=== PATIENT | male | born 1970 ===

== ENCOUNTER 2018-03-17 13:53 | Inpatient (IN) | payer MEDICARE, OTHER ==
[2018-03-17 14:35] VITALS: BMI 22.3
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
[2018-03-17 15:43] LABS: VENOUS BLOOD GAS BASE EXCESS 1.7 mmol/L (0.0-2.0); VENOUS BLOOD GAS PO2 59 mm/Hg (30-55); VENOUS BLOOD PH 7.37 (7.32-7.43)
[2018-03-17 15:57] LABS: BASO # 0.02 K/mm3 (0.0-2.0); BASO % 0.4 % (0.0-3.0); EOS # 0.2 (0.0-0.7); EOS % 3.2 % (1.5-5.0); GRAN # 3.15 (1.4-6.5); GRAN % 60.1 % (50.0-68.0); HEMOGLOBIN 12.4 g/dL (14.0-18.0); LYMPH # 1.6 (1.2-3.4); LYMPH % 31.3 % (22.0-35.0); MEAN CELL VOLUME 86.6 fl (80.0-105.0); MEAN CORPUSCULAR HEMOGLOBIN 30.7 pg (25.0-35.0); MEAN CORPUSCULAR HGB CONC 35.4 g/dl (31.0-37.0); MEAN PLATELET VOLUME 9.7 fl (7.0-11.0); MONO # 0.3 (0.1-0.6); RBC 4.04 10^6/uL (3.5-6.1); RED CELL DISTRIBUTION WIDTH 12.3 % (11.5-14.5); WHITE BLOOD COUNT 5.2 10^3/ul (4.5-11.0)
[2018-03-17 15:59] LABS: ALB/GLOB RATIO 1.2 (1.1-1.8); ALBUMIN 4.3 g/dL (3.0-4.8); ALT/SGPT 41 U/L (7-56); AST/SGOT 20 U/L (17-59); BLOOD UREA NITROGEN 19 mg/dL (7-21); CALCIUM 9.2 mg/dL (8.4-10.5); GFR AFRICAN-AMERICAN > 60; GFR NON-AFRICAN AMERICAN > 60
[2018-03-17 16:00] LABS: PH,URINE 6.5 (4.7-8.0); URINE BILIRUBIN NEGATIVE (NEGATIVE); URINE BLOOD NEGATIVE (NEGATIVE); URINE GLUCOSE (UA) >=1000 mg/dL (NEGATIVE); URINE LEUKOCYTE ESTERASE NEGATIVE Leu/uL (NEGATIVE); URINE PROTEIN NEGATIVE mg/dL (<30 mg/dL); URINE UROBILINOGEN 0.2 E.U./dL (<1 E.U./dL)
[2018-03-17 16:01] LABS: INR 1.14; PARTIAL THROMBOPLASTIN TIME 33.6 Seconds (25.1-36.5)
[2018-03-17 16:02] LABS: URINE APPEARANCE CLEAR (CLEAR); URINE COLOR YELLOW (YELLOW)
[2018-03-17] MEDS ORDERED: Cefepime IV 2 gm in NS 2 GM/100 ML BAG IVPB STA (16:15)
[2018-03-17] MEDS ORDERED: Vancomycin 1gm in NS 250ml 1 GM/250 ML BAG IVPB STA (16:16)
--- NOTE | 2018-03-17 17:22 | RAD ---
Date of service: 03/17/2018 PROCEDURE: Left Foot Radiographs. HISTORY: foot osteomyelitis COMPARISON: None. FINDINGS: BONES: Neuropathic ankle. A normal talotibial and talofibular do joint is not apparent. JOINTS: Charcot joint/left ankle changes. A component of osteomyelitis is difficult to identify. Likely findings related to prior episodes of osteomyelitis. SOFT TISSUES: NormalSoft tissue changes about the left ankle and hindfoot. OTHER FINDINGS: None. IMPRESSION: Soft tissue swelling without acute articular or osseous abnormality.
[2018-03-17] MEDS ORDERED: Dextrose 50% SYRINGE Inj (50 ml) IV PRN (17:51)
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
[2018-03-17] MEDS: Vancomycin 1gm in NS 250ml 1 GM/250 ML BAG IVPB SCH (18:19)
--- NOTE | 2018-03-17 22:27 | CARD ---
APPROVED REPORT Date of service: 03/17/2018 EKG Measurement Heart [id number] <Conclusion> Normal sinus rhythm Normal ECG
[2018-03-17] MEDS: Insulin Lispro (HUMAlog) HIGH Coverage SC SCH (22:54)
[2018-03-17] MEDS: Cefepime 1gm in NS 100ml 1 GM/100 ML BAG IVPB SCH (23:54)
[2018-03-18] MEDS ORDERED: Pneumococcal 23-Valent Vaccine IM ONE (00:44)
[2018-03-18] MEDS: Vancomycin 1gm in NS 250ml 1 GM/250 ML BAG IVPB SCH ×2 (05:44→17:03)
[2018-03-18 07:00] LABS: BASO # 0.03 K/mm3 (0.0-2.0); BASO % 0.7 % (0.0-3.0); EOS # 0.2 (0.0-0.7); EOS % 3.7 % (1.5-5.0); GRAN # 2.51 (1.4-6.5); HEMOGLOBIN 11.8 g/dL (14.0-18.0); LYMPH # 1.4 (1.2-3.4); LYMPH % 31.6 % (22.0-35.0); MEAN CELL VOLUME 86.2 fl (80.0-105.0); MEAN CORPUSCULAR HEMOGLOBIN 30.2 pg (25.0-35.0); MEAN PLATELET VOLUME 10.2 fl (7.0-11.0); MONO # 0.4 (0.1-0.6); RBC 3.91 10^6/uL (3.5-6.1); RED CELL DISTRIBUTION WIDTH 12.5 % (11.5-14.5); WHITE BLOOD COUNT 4.6 10^3/ul (4.5-11.0)
[2018-03-18 08:01] LABS: ALB/GLOB RATIO 1.1 (1.1-1.8); ALBUMIN 3.9 g/dL (3.0-4.8); BLOOD UREA NITROGEN 19 mg/dL (7-21); CALCIUM 8.9 mg/dL (8.4-10.5); GFR AFRICAN-AMERICAN > 60; GFR NON-AFRICAN AMERICAN > 60
[2018-03-18 08:02] LABS: ALT/SGPT 29 U/L (7-56); AST/SGOT 22 U/L (17-59)
[2018-03-18] MEDS: Insulin Lispro (HUMAlog) HIGH Coverage SC SCH ×4 (08:14→22:14)
[2018-03-18] MEDS: Enoxaparin 40 mg Syringe SC SCH (10:24)
[2018-03-18] MEDS: Cefepime 1gm in NS 100ml 1 GM/100 ML BAG IVPB SCH ×2 (10:24→22:14)
--- NOTE | 2018-03-18 13:10 | US ---
HISTORY: Leg pain and swelling. Evaluate for DVT PHYSICIAN(S): Hamilton Wills MD. TECHNIQUE: Duplex sonography and color-flow Doppler with graded compression were used to evaluate the deep venous systems of both lower extremities. FINDINGS: The visualized deep venous systems of both lower extremities are sonographically normal and compressible. Normal wave forms and augmentation are seen. There is no sonographic evidence for deep venous thrombosis in the visualized segments of both lower extremities. IMPRESSION: No sonographic evidence for deep venous thrombosis in the visualized segments of both lower extremities.
--- NOTE | 2018-03-18 13:32 | CP.PCM.PN ---
<Cristina Hubbard - Last Filed: 03/18/18 15:41> Subjective - Date & Time of Evaluation Date of Evaluation: 03/18/18 Time of Evaluation: 13:29 - Subjective Subjective: Cristina Hubbard, PGY-1, Internal Medicine note for Dr. Palmer Patient seen and examined this morning. No significant overnight events occurred. Patient reports minor dizziness, severe left foot pain and warmth, left foot wound discharge and malodor, and shortness of breath. Patient denies left foot wound redness.Patient denies headache, fever, chest pain, heart palpitations, wheezing, cough, abdominal pain, nausea, vomiting, constipation, diarrhea, dysuria, and hematuria. Objective - Vital Signs/Intake and Output Vital Signs (last 24 hours): Temp Pulse Resp BP Pulse Ox 97.7 F 77 20 103/69 98 03/18/18 06:00 03/18/18 06:00 03/18/18 06:00 03/18/18 06:00 03/18/18 06:00 Intake and Output: 03/18/18 03/18/18 06:59 18:59 Intake Total 1240 Output Total 600 Balance 640 - Medications Medications: Current Medications Dextrose (Dextrose 50% Inj) 0 ml IV STAT PRN; Protocol PRN Reason: Hypoglycemia Protocol Enoxaparin Sodium (Lovenox) 40 mg SC DAILY [facility] PRN Reason: Protocol Last Admin: 03/18/18 10:24 Dose: 40 mg Famotidine (Pepcid) 20 mg PO 1000,2200 [facility] Last Admin: 03/18/18 10:24 Dose: 20 mg Dextrose (Dextrose 5% In Water 1000 Ml) 1,000 mls @ 0 mls/hr IV .Q0M PRN; Protocol; Per Protocol PRN Reason: Hypoglycemia Protocol Cefepime HCl (Maxipime 1gm) 1 gm in 100 mls @ 100 mls/hr IVPB Q12 [facility] PRN Reason: Protocol Last Admin: 03/18/18 10:24 Dose: 100 mls/hr Vancomycin HCl (Vancomycin 1gm) 1 gm in 250 mls @ 167 mls/hr IVPB Q12H [facility] PRN Reason: Protocol Last Admin: 03/18/18 05:44 Dose: 167 mls/hr Insulin Human Lispro (Humalog High) 0 units SC ACHS [facility] PRN Reason: Protocol Last Admin: 03/18/18 11:47 Dose: 10 u - Labs Labs: 03/18/18 06:20 03/18/18 06:20 PT 13.0 SECONDS (9.4-12.5) H 03/17/18 15:25 INR 1.14 03/17/18 15:25 APTT 33.6 Seconds (25.1-36.5) 03/17/18 15:25 - Constitutional Appears: Well, Toxic - Head Exam Head Exam: ATRAUMATIC, NORMOCEPHALIC - Eye Exam Eye Exam: EOMI Pupil Exam: PERRL - ENT Exam ENT Exam: Mucous Membranes Moist - Respiratory Exam Respiratory Exam: Clear to Ausculation Bilateral, NORMAL BREATHING PATTERN - Cardiovascular Exam Cardiovascular Exam: REGULAR RHYTHM - GI/Abdominal Exam GI & Abdominal Exam: Soft, Normal Bowel Sounds - Extremities Exam Extremities Exam: Pedal Edema Additional comments: Left foot wound on outer aspect of foot. Edema of entire left foot. Wound is not erythematous but is malodorous, warm, and has discharge. - Neurological Exam Neurological Exam: Alert, CN II-XII Intact, Normal Gait, Oriented x3 Neuro motor strength exam: Left Lower Extremity: 5, Right Lower Extremity: 5 Additional comments: Patient cannot dorsiflex or plantarflex bilateral pedal phalanges - Psychiatric Exam Psychiatric exam: Normal Affect, Normal Mood Assessment and Plan - Assessment and Plan (Free Text) Assessment: 48 year old male with past medical history of diabetes mellitus I on insulin pump at home, osteomyelitis, talus avascular necrosis, and hypotension presents with left lower leg wound. Plan: Chronic ulcer of left foot 2/2 to trauma vs. history of diabetes -Chronic ulcer of left foot. Rule out osteomyelitis -Patient has history of osteomyelitis. -ESR (03/17): 46 -VBG lactate (03/17): 1.1 -Foot X ray (03/17): charcot joint/left ankle changes. Soft tissue swelling without acute articular or osseous abnormality. -EKG (03/17): NSR with HR: 83 bpm -Awaiting results of CRP, procalcitonin, blood culture, urine culture, HIV, RPR. -Empiric vancomycin and cefepime. -Per podiatry resident, Dr. Christensen has consulted infectious disease, Dr. Gonzáles, for further workup and ordered MRI of the foot to rule out osteomyelitis. Normocytic Anemia -Hgb: 11.8. Ranges between 9.8 and 13 -Continue to monitor Diabetes Mellitus I -Patient's last self reported hemoglobin A1c from few months ago was around 8. -Hemoglobin A1c: 9.4 -Random glucose: 258 -Lispro sliding scale insulin started. -Patient on consistent carbohydrate diet. 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 -Patient was on coumadin in the past, but due to risk of bleeding ulcer, patient was placed on aspirin by Dr. Lopez. -Patient has swollen left foot. Patient is on disability and wears boot on left foot while walking. -Due to immobilization of foot and swollen left foot, duplex lower extremity ultrasound was ordered to rule out DVT. -Duplex ultrasound (03/18): shows no sonographic evidence for DVT in bilateral lower extremities. GI prophylaxis: pepcid 20 mg daily DVT prophylaxis: lovenox 40 mg daily <Nehemias Palmer - Last Filed: 03/19/18 08:06> Objective - Vital Signs/Intake and Output Vital Signs (last 24 hours): Temp Pulse Resp BP Pulse Ox 97.8 F 80 18 98/58 L 97 03/19/18 06:00 03/19/18 06:00 03/19/18 06:00 03/19/18 06:00 03/19/18 06:00 Intake and Output: 03/19/18 03/19/18 06:59 18:59 Intake Total 660 Output Total 1600 Balance -940 - Medications Medications: Current Medications Dextrose (Dextrose 50% Inj) 0 ml IV STAT PRN; Protocol PRN Reason: Hypoglycemia Protocol Enoxaparin Sodium (Lovenox) 40 mg SC DAILY [facility] PRN Reason: Protocol Last Admin: 03/18/18 10:24 Dose: 40 mg Famotidine (Pepcid) 20 mg PO 1000,2200 [facility] Last Admin: 03/18/18 22:14 Dose: 20 mg Dextrose (Dextrose 5% In Water 1000 Ml) 1,000 mls @ 0 mls/hr IV .Q0M PRN; Protocol; Per Protocol PRN Reason: Hypoglycemia Protocol Cefepime HCl (Maxipime 1gm) 1 gm in 100 mls @ 100 mls/hr IVPB Q12 [facility] PRN Reason: Protocol Last Admin: 03/18/18 22:14 Dose: 100 mls/hr Vancomycin HCl (Vancomycin 1gm) 1 gm in 250 mls @ 167 mls/hr IVPB Q12H [facility] PRN Reason: Protocol Last Admin: 03/19/18 05:34 Dose: 167 mls/hr Insulin Human Lispro (Humalog High) 0 units SC ACHS [facility] PRN Reason: Protocol Last Admin: 03/19/18 07:48 Dose: 10 units Midodrine (Proamatine) 5 mg PO TID [facility] Silver Sulfadiazine (Silvadene 1% 25 Gm) 0 gm TP DAILY [facility] - Labs Labs: 03/19/18 06:30 03/19/18 06:30 PT 13.0 SECONDS (9.4-12.5) H 03/17/18 15:25 INR 1.14 03/17/18 15:25 APTT 33.6 Seconds (25.1-36.5) 03/17/18 15:25 Attending/Attestation - Attestation I have personally seen and examined this patient.: Yes I have fully participated in the care of the patient.: Yes I have reviewed all pertinent clinical information, including history, physical exam and plan: Yes Notes (Text): 03/19/18 08:04 Attending note; Patient seen and examined with resident. Patient is a 48 year old male with past medical history of diabetes mellitus type 1, on insulin pump, osteomyelitis, talus avascular necrosis, and chronic hypotension presents with left lower leg wound. Patient reports that this wound has been chronic and been present for the past month. 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 Christensen for admission for nonhealing wound. Currently patient has left ankle deformity which is chronic. Ulceration on the fifth metatarsal area. No significant discharge noted. Mild erythema and redness. Podiatry evaluation appreciated. Local wound care done. X-ray showed charcot's joint and soft tissue swelling with no significant osteomyelitis. MRI ordered. on IV vancomycin and cefepime. ID evaluation requested. Diabetes; continue insulin. Diabetes with significant autonomic neuropathy. Continue midodrine for hypotension. Ultrasound of the lower extremities negative. History of DVT in the past. Continue Lovenox subcutaneous. The diagnosis and treatment option discussed with patient in detail. Upon discharge the patient will follow-up with PMD Dr. Lopez.
--- NOTE | 2018-03-18 14:11 | CP.PCM.CON ---
<Fritz Merlos - Last Filed: 03/18/18 14:06> History of Present Illness - History of Present Illness History of Present Illness: Podiatry Consult Note for Dr. Santiago 48M with PMHx diabetes mellitus I on insulin pump, osteomyelitis, talus avascular necrosis, and hypotension seen at bedside for ulceration at level of left foot fifth metatarsal base. Patient was sent to ED yesterday after [facility]. Patient states that the wound has been present for over a month now and he has not been consistent with follow up due to problems with his insurance. Patient is AAO x 3 and AND at time of visit. He states that he does have mild pain to the site of the ulcer and has noted some red/clear drainage from the wound of recent. He also admits to redness surrounding the wound but no malodor. He denies any further pedal complaints at this time. Denies any constitutional symptoms including N/V/F/C/CP /SOB/D/posterior calf pain when squeezed. PMD: Dr. Lopez Body Former: Dr. Gomez PMH: DM1 on insulin drip, hypotension, TIA, bells palsy, bilateral lower extremity DVT, right upper extremity DVT PSH: right shoulder rotator cuff injury in 2006, catherization 6 months ago with 0 stents placed. Follow up records with [facility]. Medications: Midodrine 5 mg BID, continuous insulin lump Social history: denies alcohol, tobacco, and substance use. on disability Allergies: NKDA Review of Systems - Review of Systems All systems: reviewed and no additional remarkable complaints except Review of Systems: as per HPI Past Patient History - Infectious Disease Hx of Infectious Diseases: None - Tetanus Immunizations Tetanus Immunization: Unknown - Past Medical History & Family History Past Medical History?: Yes - Past Social History Smoking Status: Never Smoked - CARDIAC Hx Cardiac Disorders: Yes Hx Circulatory Problems: Yes Hx Peripheral Vascular Disease: (DVT BILATERAL LE) - PULMONARY Hx Respiratory Disorders: No - NEUROLOGICAL Hx Neurological Disorder: Yes Hx Dizziness: Yes Hx Transient Ischemic Attacks (TIA): Yes - HEENT Hx HEENT Problems: No - RENAL Hx Chronic Kidney Disease: No - ENDOCRINE/METABOLIC Hx Endocrine Disorders: Yes Hx Diabetes Mellitus Type 1: Yes (poorly controlled with frequent syncopal episodes) - HEMATOLOGICAL/ONCOLOGICAL Hx Blood Disorders: Yes (DVT) Other/Comment: Left leg DVT - INTEGUMENTARY Hx Dermatological Problems: Yes (flores to bilateral heels) Other/Comment: blisters noted on left hand knuckles - MUSCULOSKELETAL/RHEUMATOLOGICAL Hx Musculoskeletal Disorders: Yes (RIGHT SHOULDER ROTATOR CUFF [id number]) Hx Falls: Yes Hx Fractures: Yes (LEFT ANKLE) Hx Unsteady Gait: Yes (CRUTCHES,SPECIAL SHOES) Other/Comment: ARTIFICIAL JAW-PHYSICAL ALERCATION,BROKEN NOSE,HAD SX. - GASTROINTESTINAL Hx Gastrointestinal Disorders: No - GENITOURINARY/GYNECOLOGICAL Hx Genitourinary Disorders: No - PSYCHIATRIC Hx Psychophysiologic Disorder: No Hx Substance Use: No - SURGICAL HISTORY Hx Surgeries: Yes Hx Orthopedic Surgery: Yes Other/Comment: rt shoulder rotator cuff and broken jaw surgeries - ANESTHESIA Hx Anesthesia: Yes Hx Anesthesia Reactions: (UNK) Hx Malignant Hyperthermia: (UNK) Meds Allergies/Adverse Reactions: Allergies Allergy/AdvReac Type Severity Reaction Status Date / Time No Known Allergies Allergy Verified 03/17/18 21:43 - Medications Medications: Current Medications Dextrose (Dextrose 50% Inj) 0 ml IV STAT PRN; Protocol PRN Reason: Hypoglycemia Protocol Enoxaparin Sodium (Lovenox) 40 mg SC DAILY [facility] PRN Reason: Protocol Last Admin: 03/18/18 10:24 Dose: 40 mg Famotidine (Pepcid) 20 mg PO 1000,2200 [facility] Last Admin: 03/18/18 10:24 Dose: 20 mg Dextrose (Dextrose 5% In Water 1000 Ml) 1,000 mls @ 0 mls/hr IV .Q0M PRN; Protocol; Per Protocol PRN Reason: Hypoglycemia Protocol Cefepime HCl (Maxipime 1gm) 1 gm in 100 mls @ 100 mls/hr IVPB Q12 [facility] PRN Reason: Protocol Last Admin: 03/18/18 10:24 Dose: 100 mls/hr Vancomycin HCl (Vancomycin 1gm) 1 gm in 250 mls @ 167 mls/hr IVPB Q12H [facility] PRN Reason: Protocol Last Admin: 03/18/18 05:44 Dose: 167 mls/hr Insulin Human Lispro (Humalog High) 0 units SC ACHS [facility] PRN Reason: Protocol Last Admin: 03/18/18 11:47 Dose: 10 u Silver Sulfadiazine (Silvadene 1% 25 Gm) 0 gm TP DAILY [facility] Physical Exam - Constitutional Appears: Well, Non-toxic, No Acute Distress - Extremities Exam Additional comments: LE focused exam Vasc: DP/PT pulses 1/4 b/l. Skin temperature warm to warm from proximal to distal. CFT < 3 seconds to all digits b/l. Mild edema noted to left lateral foot ulceration site Neuro: Epicritic and protective sensation grossly intact b/l Derm: Approximately 1 cm x 1 cm x 0.3 cm ulceration that probes directly to bone noted to lateral left foot at fifth metatarsal base with wound base a fibrogranular mix. Mild periwound erythema and minimal serosanguinous drainage noted to site. No malodor, no tracking/tunneling/undermining. No other clinical signs of infection noted. No other open wounds, lesions, maceration, xerosis, abnormal pigmentation or abnormal growths noted MSK: POP to ulceration site. Limited ROM at left ankle joint secondary to destructive changes at ankle joint. Medial and lateral widening at ankle joint appreciated. No other gross deformities appreciated. - Neurological Exam Neurological exam: Alert, Oriented x3 - Psychiatric Exam Psychiatric exam: Normal Affect, Normal Mood Results - Vital Signs Recent Vital Signs: Last Vital Signs Temp 97.7 F 03/18/18 06:00 Pulse 77 03/18/18 06:00 Resp 20 03/18/18 06:00 BP 103/69 03/18/18 06:00 Pulse Ox 98 03/18/18 06:00 - Labs Result Diagrams: 03/18/18 06:20 03/18/18 06:20 Labs: Laboratory Results - last 24 hr 03/17/18 03/18/18 03/18/18 22:48 01:56 06:20 WBC RBC Hgb Hct MCV MCH MCHC RDW Plt Count MPV Gran % Lymph % (Auto) [place] % (Auto) Eos % (Auto) Baso % (Auto) Gran # Lymph # (Auto) [place] # (Auto) Eos # (Auto) Baso # (Auto) Sodium 135 Potassium 4.6 Chloride 99 Carbon Dioxide 27 Anion Gap 14 BUN 19 Creatinine 0.7 L Est GFR ( Amer) > 60 Est GFR (Non-Af Amer) > 60 POC Glucose (mg/dL) 340 H 244 H Random Glucose 268 H Calcium 8.9 Total Bilirubin 0.5 AST 22 ALT 29 Alkaline Phosphatase 83 Total Protein 7.3 Albumin 3.9 Globulin 3.4 Albumin/Globulin Ratio 1.1 03/18/18 03/18/18 06:20 06:27 WBC 4.6 RBC 3.91 Hgb 11.8 L Hct 33.7 L MCV 86.2 MCH 30.2 MCHC 35.0 RDW 12.5 Plt Count 211 MPV 10.2 Gran % 55.0 Lymph % (Auto) 31.6 [place] % (Auto) 9.0 H Eos % (Auto) 3.7 Baso % (Auto) 0.7 Gran # 2.51 Lymph # (Auto) 1.4 [place] # (Auto) 0.4 Eos # (Auto) 0.2 Baso # (Auto) 0.03 Sodium Potassium Chloride Carbon Dioxide Anion Gap BUN Creatinine Est GFR ( Amer) Est GFR (Non-Af Amer) POC Glucose (mg/dL) 258 H Random Glucose Calcium Total Bilirubin AST ALT Alkaline Phosphatase Total Protein Albumin Globulin Albumin/Globulin Ratio Assessment & Plan - Assessment and Plan (Free Text) Assessment: 48M seen for acutely infected left foot fifth metatarsal base ulceration Plan: Patient seen and evaluated with attending, Dr. Santiago Afebrile, absent leukocytosis ID consult placed - Dr. Gonzáles Continue abx per ID recs ESR 46 F/u wound cx L foot XR: Soft tissue swelling without acute articular or osseous abnormality F/u MRI left foot LLE US - No evidence of DVT Wound cleansed with saline and dressed with xeroform, ABD, DSD No plan for surgical intervention at this time Podiatry will continue to follow while patient in house - Date & Time Date: 03/18/18 Time: 14:20 <Bassem Santiago - Last Filed: 03/18/18 16:49> Meds - Medications Medications: Current Medications Dextrose (Dextrose 50% Inj) 0 ml IV STAT PRN; Protocol PRN Reason: Hypoglycemia Protocol Enoxaparin Sodium (Lovenox) 40 mg SC DAILY [facility] PRN Reason: Protocol Last Admin: 03/18/18 10:24 Dose: 40 mg Famotidine (Pepcid) 20 mg PO 1000,2200 [facility] Last Admin: 03/18/18 10:24 Dose: 20 mg Dextrose (Dextrose 5% In Water 1000 Ml) 1,000 mls @ 0 mls/hr IV .Q0M PRN; Protocol; Per Protocol PRN Reason: Hypoglycemia Protocol Cefepime HCl (Maxipime 1gm) 1 gm in 100 mls @ 100 mls/hr IVPB Q12 [facility] PRN Reason: Protocol Last Admin: 03/18/18 10:24 Dose: 100 mls/hr Vancomycin HCl (Vancomycin 1gm) 1 gm in 250 mls @ 167 mls/hr IVPB Q12H [facility] PRN Reason: Protocol Last Admin: 03/18/18 05:44 Dose: 167 mls/hr Insulin Human Lispro (Humalog High) 0 units SC ACHS [facility] PRN Reason: Protocol Last Admin: 03/18/18 11:47 Dose: 10 u Silver Sulfadiazine (Silvadene 1% 25 Gm) 0 gm TP DAILY [facility] Results - Vital Signs Recent Vital Signs: Last Vital Signs Temp 98.5 F 03/18/18 14:00 Pulse 87 03/18/18 14:00 Resp 20 03/18/18 14:00 BP 108/73 03/18/18 14:00 Pulse Ox 97 03/18/18 14:00 - Labs Result Diagrams: 03/18/18 06:20 03/18/18 06:20 Labs: Laboratory Results - last 24 hr 03/17/18 03/18/18 03/18/18 22:48 01:56 06:20 WBC RBC Hgb Hct MCV MCH MCHC RDW Plt Count MPV Gran % Lymph % (Auto) [place] % (Auto) Eos % (Auto) Baso % (Auto) Gran # Lymph # (Auto) [place] # (Auto) Eos # (Auto) Baso # (Auto) Sodium 135 Potassium 4.6 Chloride 99 Carbon Dioxide 27 Anion Gap 14 BUN 19 Creatinine 0.7 L Est GFR ( Amer) > 60 Est GFR (Non-Af Amer) > 60 POC Glucose (mg/dL) 340 H 244 H Random Glucose 268 H Calcium 8.9 Total Bilirubin 0.5 AST 22 ALT 29 Alkaline Phosphatase 83 Total Protein 7.3 Albumin 3.9 Globulin 3.4 Albumin/Globulin Ratio 1.1 03/18/18 03/18/18 03/18/18 06:20 06:27 11:15 WBC 4.6 RBC 3.91 Hgb 11.8 L Hct 33.7 L MCV 86.2 MCH 30.2 MCHC 35.0 RDW 12.5 Plt Count 211 MPV 10.2 Gran % 55.0 Lymph % (Auto) 31.6 [place] % (Auto) 9.0 H Eos % (Auto) 3.7 Baso % (Auto) 0.7 Gran # 2.51 Lymph # (Auto) 1.4 [place] # (Auto) 0.4 Eos # (Auto) 0.2 Baso # (Auto) 0.03 Sodium Potassium Chloride Carbon Dioxide Anion Gap BUN Creatinine Est GFR ( Amer) Est GFR (Non-Af Amer) POC Glucose (mg/dL) 258 H 327 H Random Glucose Calcium Total Bilirubin AST ALT Alkaline Phosphatase Total Protein Albumin Globulin Albumin/Globulin Ratio 03/18/18 16:09 WBC RBC Hgb Hct MCV MCH MCHC RDW Plt Count MPV Gran % Lymph % (Auto) [place] % (Auto) Eos % (Auto) Baso % (Auto) Gran # Lymph # (Auto) [place] # (Auto) Eos # (Auto) Baso # (Auto) Sodium Potassium Chloride Carbon Dioxide Anion Gap BUN Creatinine Est GFR ( Amer) Est GFR (Non-Af Amer) POC Glucose (mg/dL) 152 H Random Glucose Calcium Total Bilirubin AST ALT Alkaline Phosphatase Total Protein Albumin Globulin Albumin/Globulin Ratio Attending/Attestation - Attestation I have personally seen and examined this patient.: Yes I have fully participated in the care of the patient.: Yes I have reviewed all pertinent clinical information: Yes
[2018-03-19] MEDS: Vancomycin 1gm in NS 250ml 1 GM/250 ML BAG IVPB SCH ×2 (05:34→17:12)
[2018-03-19 07:08] LABS: BASO # 0.02 K/mm3 (0.0-2.0); BASO % 0.4 % (0.0-3.0); EOS # 0.2 (0.0-0.7); EOS % 3.5 % (1.5-5.0); GRAN # 2.73 (1.4-6.5); GRAN % 55.4 % (50.0-68.0); HEMOGLOBIN 11.7 g/dL (14.0-18.0); LYMPH # 1.5 (1.2-3.4); LYMPH % 30.1 % (22.0-35.0); MEAN CELL VOLUME 86.3 fl (80.0-105.0); MEAN CORPUSCULAR HEMOGLOBIN 30.3 pg (25.0-35.0); MEAN CORPUSCULAR HGB CONC 35.1 g/dl (31.0-37.0); MEAN PLATELET VOLUME 10.2 fl (7.0-11.0); MONO # 0.5 (0.1-0.6); MONO % 10.6 % (1.0-6.0); RBC 3.86 10^6/uL (3.5-6.1); RED CELL DISTRIBUTION WIDTH 12.4 % (11.5-14.5); WHITE BLOOD COUNT 4.9 10^3/ul (4.5-11.0)
[2018-03-19 07:32] LABS: ALB/GLOB RATIO 1.1 (1.1-1.8); ALBUMIN 3.6 g/dL (3.0-4.8); ALT/SGPT 24 U/L (7-56); AST/SGOT 22 U/L (17-59); BLOOD UREA NITROGEN 15 mg/dL (7-21); CALCIUM 8.7 mg/dL (8.4-10.5); GFR AFRICAN-AMERICAN > 60; GFR NON-AFRICAN AMERICAN > 60
[2018-03-19] MEDS: Insulin Lispro (HUMAlog) HIGH Coverage SC SCH ×4 (07:48→21:56)
--- NOTE | 2018-03-19 09:31 | US ---
HISTORY: Arm pain and swelling. Evaluate for deep venous thrombosis. PHYSICIAN(S): Hamilton Wills MD. FINDINGS: The visualized internal jugular veins are sonographically normal and compressible. No evidence of obstruction or thrombus this is seen. The visualized segments of the subclavian veins are patent with normal waveforms. No sonographic evidence of obstruction or thrombosis is seen. The visualized deep venous systems of both upper extremities proximally are sonographically normal and compressible. IMPRESSION: 1. No sonographic evidence for deep venous thrombosis in the visualized segments of both upper strategies.
[2018-03-19] MEDS: Enoxaparin 40 mg Syringe SC SCH (10:25)
[2018-03-19] MEDS: Cefepime 1gm in NS 100ml 1 GM/100 ML BAG IVPB SCH ×2 (10:25→21:57)
[2018-03-19] MEDS: Silver Sulfadiazine 1% Cream (25 gm) TP SCH (10:26)
--- NOTE | 2018-03-19 11:24 | CP.PCM.PN ---
Subjective - Date & Time of Evaluation Date of Evaluation: 03/19/18 Time of Evaluation: 11:20 - Subjective Subjective: Podiatry Progress Note for Dr. Christensen 48M seen at bedside for lateral left foot wound. Patient is AAO x 3 and NAD, resting comfortably in bed at time of visit. States that he has pain in his foot at the wound site. Denies any acute overnight events. Denies any recent N/V /F/C/CP/SOB/D/posterior calf pain when squeezed. Objective - Vital Signs/Intake and Output Vital Signs (last 24 hours): Temp Pulse Resp BP Pulse Ox 97.8 F 80 18 98/58 L 97 03/19/18 06:00 03/19/18 06:00 03/19/18 06:00 03/19/18 06:00 03/19/18 06:00 Intake and Output: 03/19/18 03/19/18 06:59 18:59 Intake Total 660 Output Total 1600 Balance -940 - Medications Medications: Current Medications Dextrose (Dextrose 50% Inj) 0 ml IV STAT PRN; Protocol PRN Reason: Hypoglycemia Protocol Enoxaparin Sodium (Lovenox) 40 mg SC DAILY [facility] PRN Reason: Protocol Last Admin: 03/19/18 10:25 Dose: 40 mg Famotidine (Pepcid) 20 mg PO 1000,2200 [facility] Last Admin: 03/19/18 10:26 Dose: 20 mg Gabapentin (Neurontin) 200 mg PO TID [facility] PRN Reason: Protocol Dextrose (Dextrose 5% In Water 1000 Ml) 1,000 mls @ 0 mls/hr IV .Q0M PRN; Protocol; Per Protocol PRN Reason: Hypoglycemia Protocol Cefepime HCl (Maxipime 1gm) 1 gm in 100 mls @ 100 mls/hr IVPB Q12 [facility] PRN Reason: Protocol Last Admin: 03/19/18 10:25 Dose: 100 mls/hr Vancomycin HCl (Vancomycin 1gm) 1 gm in 250 mls @ 167 mls/hr IVPB Q12H [facility] PRN Reason: Protocol Last Admin: 03/19/18 05:34 Dose: 167 mls/hr Insulin Detemir (Levemir) 10 unit SC ACB [facility] Insulin Detemir (Levemir) 10 unit SC HS [facility] Insulin Human Lispro (Humalog High) 0 units SC ACHS [facility] PRN Reason: Protocol Last Admin: 03/19/18 07:48 Dose: 10 units Midodrine (Proamatine) 5 mg PO TID [facility] Last Admin: 03/19/18 10:26 Dose: 5 mg Silver Sulfadiazine (Silvadene 1% 25 Gm) 0 gm TP DAILY [facility] Last Admin: 03/19/18 10:26 Dose: 25 gm - Labs Labs: 03/19/18 06:30 03/19/18 06:30 PT 13.0 SECONDS (9.4-12.5) H 03/17/18 15:25 INR 1.14 03/17/18 15:25 APTT 33.6 Seconds (25.1-36.5) 03/17/18 15:25 - Constitutional Appears: Well, Non-toxic, No Acute Distress - Extremities Exam Additional comments: LE focused exam Vasc: DP/PT pulses 1/4 b/l. Skin temperature warm to warm from proximal to distal. CFT < 3 seconds to all digits b/l. Mild edema noted to left lateral foot ulceration site Neuro: Epicritic and protective sensation grossly intact b/l Derm: Approximately 1 cm x 1 cm x 0.3 cm ulceration that probes directly to bone noted to lateral left foot at fifth metatarsal base with wound base noted to be a fibrogranular mix with more granulation noted today than yesterday. No periwound erythema and no drainage noted to site today. No malodor, no tracking/ tunneling/undermining. No other clinical signs of infection noted. No other open wounds, lesions, maceration, xerosis, abnormal pigmentation or abnormal growths noted MSK: POP to ulceration site. Limited ROM at left ankle joint secondary to destructive changes at ankle joint. Medial and lateral widening at ankle joint appreciated. No other gross deformities appreciated. - Neurological Exam Neurological Exam: Alert, Awake, Oriented x3 - Psychiatric Exam Psychiatric exam: Normal Affect, Normal Mood Assessment and Plan - Assessment and Plan (Free Text) Assessment: 48M seen for acutely infected left foot fifth metatarsal base ulceration Plan: Patient seen and evaluated with Dr. Christensen Afebrile, absent leukocytosis Continue abx per ID Wound cx left foot pending Official MRI read left foot pending Official arterial duplex read pending No plan for surgical intervention at this time. Awaiting MRI/arterial study results Podiatry will continue to follow while patient in house
--- NOTE | 2018-03-19 12:33 | CP.PCM.PN ---
<Cristina Hubbard - Last Filed: 03/19/18 16:37> Subjective - Date & Time of Evaluation Date of Evaluation: 03/19/18 Time of Evaluation: 12:30 - Subjective Subjective: Cristina Hubbard, PGY-1, Internal Medicine note for Dr. Palmer Patient seen and examined. Overnight, patient's blood pressure dropped to 85/56 and subsequently raised to 98/59. Patient reported no symptoms during this episode. Patient reports left foot pain and swelling, minimal discharge and malodor from wound. Patient denies redness of wound. Patient denies headache, dizziness, chest pain, heart palpitations, shortness of breath, nausea, vomiting , constipation, diarrhea, dysuria, and hematuria. Objective - Vital Signs/Intake and Output Vital Signs (last 24 hours): Temp Pulse Resp BP Pulse Ox 97.8 F 80 18 98/58 L 97 03/19/18 06:00 03/19/18 06:00 03/19/18 06:00 03/19/18 06:00 03/19/18 06:00 Intake and Output: 03/19/18 03/19/18 06:59 18:59 Intake Total 660 Output Total 1600 Balance -940 - Medications Medications: Current Medications Dextrose (Dextrose 50% Inj) 0 ml IV STAT PRN; Protocol PRN Reason: Hypoglycemia Protocol Enoxaparin Sodium (Lovenox) 40 mg SC DAILY [facility] PRN Reason: Protocol Last Admin: 03/19/18 10:25 Dose: 40 mg Famotidine (Pepcid) 20 mg PO 1000,2200 [facility] Last Admin: 03/19/18 10:26 Dose: 20 mg Gabapentin (Neurontin) 200 mg PO TID [facility] PRN Reason: Protocol Dextrose (Dextrose 5% In Water 1000 Ml) 1,000 mls @ 0 mls/hr IV .Q0M PRN; Protocol; Per Protocol PRN Reason: Hypoglycemia Protocol Cefepime HCl (Maxipime 1gm) 1 gm in 100 mls @ 100 mls/hr IVPB Q12 [facility] PRN Reason: Protocol Last Admin: 03/19/18 10:25 Dose: 100 mls/hr Vancomycin HCl (Vancomycin 1gm) 1 gm in 250 mls @ 167 mls/hr IVPB Q12H [facility] PRN Reason: Protocol Last Admin: 03/19/18 05:34 Dose: 167 mls/hr Insulin Detemir (Levemir) 10 unit SC ACB [facility] Insulin Detemir (Levemir) 10 unit SC HS [facility] Insulin Human Lispro (Humalog High) 0 units SC ACHS [facility] PRN Reason: Protocol Last Admin: 03/19/18 12:14 Dose: 7 units Midodrine (Proamatine) 5 mg PO TID [facility] Last Admin: 03/19/18 10:26 Dose: 5 mg Silver Sulfadiazine (Silvadene 1% 25 Gm) 0 gm TP DAILY [facility] Last Admin: 03/19/18 10:26 Dose: 25 gm - Labs Labs: 03/19/18 06:30 03/19/18 06:30 PT 13.0 SECONDS (9.4-12.5) H 03/17/18 15:25 INR 1.14 03/17/18 15:25 APTT 33.6 Seconds (25.1-36.5) 03/17/18 15:25 - Constitutional Appears: Well, Non-toxic - Head Exam Head Exam: ATRAUMATIC, NORMOCEPHALIC - Eye Exam Eye Exam: EOMI, PERRL - Respiratory Exam Respiratory Exam: Clear to Ausculation Bilateral, NORMAL BREATHING PATTERN - Cardiovascular Exam Cardiovascular Exam: REGULAR RHYTHM, RRR - GI/Abdominal Exam GI & Abdominal Exam: Soft, Normal Bowel Sounds - Extremities Exam Extremities Exam: Full ROM, Pedal Edema Additional comments: Improved discharge, malodor, and warmth. No redness. - Neurological Exam Neurological Exam: Alert, Awake, CN II-XII Intact, Oriented x3 Neuro motor strength exam: Left Upper Extremity: 5, Right Upper Extremity: 5, Right Lower Extremity: 5 Additional comments: Left pedal dorsiflexion and plantarflexion limited. - Psychiatric Exam Psychiatric exam: Normal Affect, Normal Mood - Skin Skin Exam: Dry, Intact, Normal Color Assessment and Plan - Assessment and Plan (Free Text) Assessment: 48 year old male with past medical history of diabetes mellitus I on insulin pump at home, osteomyelitis, talus avascular necrosis, and hypotension presents with left lower leg wound. Plan: Chronic ulcer of left foot 2/2 to trauma vs. history of diabetes -Chronic ulcer of left foot. Rule out osteomyelitis -Patient has history of osteomyelitis. -ESR (8/6): 46, CRP (8/6): <5, Procalcitonin (03/17): <0.05 -VBG lactate (03/17): 1.1 -Foot X ray (03/17): charcot joint/left ankle changes. Soft tissue swelling without acute articular or osseous abnormality. -EKG (03/17): NSR with HR: 83 bpm -Blood culture no growth after 24 hours, no growth on urine culture, HIV nonreactive, RPR nonreactive. -Empiric vancomycin and cefepime. -Per podiatry resident, Dr. Christensen consulted infectious disease, Dr. Gonzáles , for further workup. 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 Minimal marrow edema in the proximal 5th metatarsal. Possible early osteomyelitis. -Wound culture results pending. Normocytic Anemia -Hgb: 11.8. Ranges between 9.8 and 13 -Continue to monitor Diabetes Mellitus I -Patient's last self reported hemoglobin A1c from few months ago was around 8. -Hemoglobin A1c: 9.4 -Random glucose: 328 at 6:30 -Lispro sliding scale insulin continued. -Levemir 10 U ACB and levemir 10 U HS started. -Gabapentin 200 mg TID started -Patient on consistent carbohydrate diet. History of Hypotension -Patient's blood pressure dropped to 85/56 last night. -Patient restarted on home midodrine dose. 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 -Patient was on coumadin in the past, but due to risk of bleeding ulcer, patient was placed on aspirin by Dr. Lopez. -Patient has swollen left foot. Patient is on disability and wears boot on left foot while walking. -Due to immobilization of foot and swollen left foot, duplex lower extremity ultrasound was ordered to rule out DVT. -Patient complained of left arm pain morning of 03/19. -Duplex ultrasound (03/18): shows no sonographic evidence for DVT in bilateral lower extremities. -Duplex ultrasound of bilateral upper extremities (03/19) : shows no DVT. GI prophylaxis: pepcid 20 mg daily DVT prophylaxis: lovenox 40 mg daily <Nehemias Palmer - Last Filed: 03/20/18 16:41> Objective - Vital Signs/Intake and Output Vital Signs (last 24 hours): Temp Pulse Resp BP Pulse Ox 97.8 F 78 18 90/63 L 98 03/20/18 06:00 03/20/18 06:00 03/20/18 06:00 03/20/18 06:00 03/20/18 06:00 Intake and Output: 03/20/18 03/20/18 06:59 18:59 Intake Total 800 480 Output Total 2150 900 Balance -1350 -420 - Medications Medications: Current Medications Dextrose (Dextrose 50% Inj) 0 ml IV STAT PRN; Protocol PRN Reason: Hypoglycemia Protocol Enoxaparin Sodium (Lovenox) 40 mg SC DAILY [facility] PRN Reason: Protocol Last Admin: 03/20/18 09:26 Dose: 40 mg Famotidine (Pepcid) 20 mg PO 1000,2200 [facility] Last Admin: 03/20/18 09:26 Dose: 20 mg Gabapentin (Neurontin) 200 mg PO TID [facility] PRN Reason: Protocol Last Admin: 03/20/18 14:00 Dose: Not Given Dextrose (Dextrose 5% In Water 1000 Ml) 1,000 mls @ 0 mls/hr IV .Q0M PRN; Protocol; Per Protocol PRN Reason: Hypoglycemia Protocol Cefazolin Sodium/Dextrose (Ancef Iv 2 Gm Duplex) 2 gm in 50 mls @ 50 mls/hr IVPB Q8 [facility] Stop: 04/17/18 22:01 Insulin Detemir (Levemir) 10 unit SC ACB [facility] Last Admin: 03/20/18 07:58 Dose: 10 unit Insulin Detemir (Levemir) 10 unit SC HS [facility] Last Admin: 03/19/18 21:57 Dose: 10 units Insulin Human Lispro (Humalog High) 0 units SC ACHS [facility] PRN Reason: Protocol Last Admin: 03/20/18 11:52 Dose: 2 units Midodrine (Proamatine) 5 mg PO TID [facility] Last Admin: 03/20/18 14:00 Dose: Not Given Silver Sulfadiazine (Silvadene 1% 25 Gm) 0 gm TP DAILY [facility] Last Admin: 03/19/18 10:26 Dose: 25 gm - Labs Labs: 03/20/18 06:45 03/20/18 06:45 PT 13.0 SECONDS (9.4-12.5) H 08/06/18 15:25 INR 1.14 03/17/18 15:25 APTT 33.6 Seconds (25.1-36.5) 03/17/18 15:25 Attending/Attestation - Attestation I have personally seen and examined this patient.: Yes I have fully participated in the care of the patient.: Yes I have reviewed all pertinent clinical information, including history, physical exam and plan: Yes Notes (Text): 03/20/18 16:37 Attending note; Patient seen and examined with resident. Patient is a 48 year old male with past medical history of diabetes mellitus type 1, on insulin pump, osteomyelitis, talus avascular necrosis, and chronic hypotension presents with left lower leg wound. Patient reports that this wound has been chronic and been present for the past month. The patient was referred from wedding [facility] Dr. Christensen for admission for nonhealing wound. Currently patient has left ankle deformity which is chronic. Ulceration on the fifth metatarsal area. No significant discharge noted. Mild erythema and redness. Podiatry evaluation appreciated. Local wound care done. X-ray showed charcot's joint and soft tissue swelling with no significant osteomyelitis. MRI showed minimal bone marrow edema suggesting early osteomyelitis. Wound culture pending. on IV vancomycin and cefepime. ID evaluation appreciated. Upper extremity Doppler is negative for DVT. Arterial Doppler ordered. Diabetes; continue Levemir. Diabetes with significant autonomic neuropathy. Continue midodrine for hypotension. Ultrasound of the lower extremities negative. The diagnosis and treatment option discussed with patient in detail. Upon discharge the patient will follow-up with PMD Dr. Lopez.
--- NOTE | 2018-03-19 12:58 | MRI ---
Date of service: 03/19/2018 PROCEDURE: MRI of the left foot without contrast HISTORY: R/o OM of left foot fifth met base COMPARISON: TECHNIQUE: MRI of the left ankle was performed in multiple planes using multiple pulse sequences. FINDINGS: Severe Charcot changes are seen in the ankle and midfoot. There is complete collapse of the talus and the superior portion of the calcaneus. There is a large amount of soft tissue edema and scarring. The cuboid, cuneiform and metatarsals are unremarkable. There is mild diffuse marrow edema in the calcaneus. Small osteochondral defects are seen in the articular surface of the tibia. The clinical history is possible osteomyelitis base of 5th metatarsal. There is minimal marrow edema seen in this area. Findings could represent early osteomyelitis. There is no bony destruction. Findings are best seen on image 22 series 3 IMPRESSION: Charcot ankle with collapse of the talus. Minimal marrow edema in the proximal 5th metatarsal. Possible early osteomyelitis
--- NOTE | 2018-03-19 15:04 | US ---
PROCEDURE: Lower extremity BARRIE exam HISTORY: Peripheral vascular disease with pain and ulceration. Diabetes. PHYSICIAN(S): Hamilton Wills MD. FINDINGS: The resting BARRIE's are normal: right, 1.22and left, 1.11. Comparing with the right distal waveforms, the right ABIs may be inaccurate The brachial systolic pressures are symmetric. The high thigh pressures and waveforms are relatively normal. The calf PVR waveforms augment normally. No significant gradients are noted across the thighs. The right ankle and metatarsal waveforms are moderately blunted. This could represent right tibial occlusive disease. The left ankle PVR waveform is normal. IMPRESSION: 1. Normal ABIs at rest. The right BARRIE may be inaccurate. 2. Possible right tibial occlusive disease.
--- NOTE | 2018-03-19 19:34 | CP.PCM.CON ---
History of Present Illness - History of Present Illness History of Present Illness: 48 year old male with PMH of Enterococcus faecalis persistent bacteremia, DM, Charcot arthropathy of the feet, Peptic ulcer disease, Diabetic gastroparesis was brought in to [facility] because of wound on his left foot which has been worsening slowly over the past month. He denies animal contacts or soaking his feet in water. He has no fevers or chills, no nausea or vomiting, no chest pain , no SOB, no headache or dizziness, no abdominal pain, no diarrhea. Infectious Diseases consult is requested to further evaluate and manage. Review of Systems - Review of Systems All systems: reviewed and no additional remarkable complaints except (as per HPI ) Past Patient History - Infectious Disease Hx of Infectious Diseases: None - Tetanus Immunizations Tetanus Immunization: Unknown - Past Medical History & Family History Past Medical History?: Yes - Past Social History Smoking Status: Never Smoked - CARDIAC Hx Cardiac Disorders: Yes Hx Circulatory Problems: Yes Hx Peripheral Vascular Disease: (DVT BILATERAL LE) - PULMONARY Hx Respiratory Disorders: No - NEUROLOGICAL Hx Neurological Disorder: Yes Hx Dizziness: Yes Hx Transient Ischemic Attacks (TIA): Yes - HEENT Hx HEENT Problems: No - RENAL Hx Chronic Kidney Disease: No - ENDOCRINE/METABOLIC Hx Endocrine Disorders: Yes Hx Diabetes Mellitus Type 1: Yes (poorly controlled with frequent syncopal episodes) - HEMATOLOGICAL/ONCOLOGICAL Hx Blood Disorders: Yes (DVT) Other/Comment: Left leg DVT - INTEGUMENTARY Hx Dermatological Problems: Yes (flores to bilateral heels) Other/Comment: blisters noted on left hand knuckles - MUSCULOSKELETAL/RHEUMATOLOGICAL Hx Musculoskeletal Disorders: Yes (RIGHT SHOULDER ROTATOR CUFF [id number]) Hx Falls: Yes Hx Fractures: Yes (LEFT ANKLE) Hx Unsteady Gait: Yes (CRUTCHES,SPECIAL SHOES) Other/Comment: ARTIFICIAL JAW-PHYSICAL ALERCATION,BROKEN NOSE,HAD SX. - GASTROINTESTINAL Hx Gastrointestinal Disorders: No - GENITOURINARY/GYNECOLOGICAL Hx Genitourinary Disorders: No - PSYCHIATRIC Hx Psychophysiologic Disorder: No Hx Substance Use: No - SURGICAL HISTORY Hx Surgeries: Yes Hx Orthopedic Surgery: Yes Other/Comment: rt shoulder rotator cuff and broken jaw surgeries - ANESTHESIA Hx Anesthesia: Yes Hx Anesthesia Reactions: (UNK) Hx Malignant Hyperthermia: (UNK) Meds Allergies/Adverse Reactions: Allergies Allergy/AdvReac Type Severity Reaction Status Date / Time No Known Allergies Allergy Verified 08/06/18 21:43 - Medications Medications: Current Medications Dextrose (Dextrose 50% Inj) 0 ml IV STAT PRN; Protocol PRN Reason: Hypoglycemia Protocol Enoxaparin Sodium (Lovenox) 40 mg SC DAILY [facility] PRN Reason: Protocol Last Admin: 03/18/18 10:24 Dose: 40 mg Famotidine (Pepcid) 20 mg PO 1000,2200 [facility] Last Admin: 03/18/18 10:24 Dose: 20 mg Dextrose (Dextrose 5% In Water 1000 Ml) 1,000 mls @ 0 mls/hr IV .Q0M PRN; Protocol; Per Protocol PRN Reason: Hypoglycemia Protocol Cefepime HCl (Maxipime 1gm) 1 gm in 100 mls @ 100 mls/hr IVPB Q12 [facility] PRN Reason: Protocol Last Admin: 03/18/18 10:24 Dose: 100 mls/hr Vancomycin HCl (Vancomycin 1gm) 1 gm in 250 mls @ 167 mls/hr IVPB Q12H [facility] PRN Reason: Protocol Last Admin: 03/18/18 17:03 Dose: 167 mls/hr Insulin Human Lispro (Humalog High) 0 units SC ACHS [facility] PRN Reason: Protocol Last Admin: 03/18/18 17:01 Dose: 2 u Silver Sulfadiazine (Silvadene 1% 25 Gm) 0 gm TP DAILY [facility] Physical Exam - Constitutional Appears: Chronically Ill - Head Exam Head Exam: NORMAL INSPECTION - Respiratory Exam Respiratory Exam: Decreased Breath Sounds - Cardiovascular Exam Cardiovascular Exam: +S1, +S2 - GI/Abdominal Exam GI & Abdominal Exam: Soft. absent: Tenderness - Extremities Exam Additional comments: left foot with dressings in place Results - Vital Signs Recent Vital Signs: Last Vital Signs Temp 98.5 F 03/18/18 14:00 Pulse 87 03/18/18 14:00 Resp 20 03/18/18 14:00 BP 108/73 03/18/18 14:00 Pulse Ox 97 03/18/18 14:00 - Labs Result Diagrams: 03/19/18 06:30 03/19/18 06:30 Labs: Laboratory Results - last 24 hr 03/17/18 03/18/18 03/18/18 22:48 01:56 06:20 WBC RBC Hgb Hct MCV MCH MCHC RDW Plt Count MPV Gran % Lymph % (Auto) [place] % (Auto) Eos % (Auto) Baso % (Auto) Gran # Lymph # (Auto) [place] # (Auto) Eos # (Auto) Baso # (Auto) Sodium 135 Potassium 4.6 Chloride 99 Carbon Dioxide 27 Anion Gap 14 BUN 19 Creatinine 0.7 L Est GFR ( Amer) > 60 Est GFR (Non-Af Amer) > 60 POC Glucose (mg/dL) 340 H 244 H Random Glucose 268 H Calcium 8.9 Total Bilirubin 0.5 AST 22 ALT 29 Alkaline Phosphatase 83 Total Protein 7.3 Albumin 3.9 Globulin 3.4 Albumin/Globulin Ratio 1.1 03/18/18 03/18/18 03/18/18 06:20 06:27 11:15 WBC 4.6 RBC 3.91 Hgb 11.8 L Hct 33.7 L MCV 86.2 MCH 30.2 MCHC 35.0 RDW 12.5 Plt Count 211 MPV 10.2 Gran % 55.0 Lymph % (Auto) 31.6 [place] % (Auto) 9.0 H Eos % (Auto) 3.7 Baso % (Auto) 0.7 Gran # 2.51 Lymph # (Auto) 1.4 [place] # (Auto) 0.4 Eos # (Auto) 0.2 Baso # (Auto) 0.03 Sodium Potassium Chloride Carbon Dioxide Anion Gap BUN Creatinine Est GFR ( Amer) Est GFR (Non-Af Amer) POC Glucose (mg/dL) 258 H 327 H Random Glucose Calcium Total Bilirubin AST ALT Alkaline Phosphatase Total Protein Albumin Globulin Albumin/Globulin Ratio 03/18/18 16:09 WBC RBC Hgb Hct MCV MCH MCHC RDW Plt Count MPV Gran % Lymph % (Auto) [place] % (Auto) Eos % (Auto) Baso % (Auto) Gran # Lymph # (Auto) [place] # (Auto) Eos # (Auto) Baso # (Auto) Sodium Potassium Chloride Carbon Dioxide Anion Gap BUN Creatinine Est GFR ( Amer) Est GFR (Non-Af Amer) POC Glucose (mg/dL) 152 H Random Glucose Calcium Total Bilirubin AST ALT Alkaline Phosphatase Total Protein Albumin Globulin Albumin/Globulin Ratio Assessment & Plan - Assessment and Plan (Free Text) Plan: Assessment consider left foot skin and skin structure infection, R/O osteomyelitis history of Enterococcus faecalis persistent bacteremia DM Charcot arthropathy of the feet Peptic ulcer disease Diabetic gastroparesis Plan started patient on Vancomycin and Cefepime pending blood, wound cx; follow up MRI results will monitor clinically
[2018-03-19] MEDS: Insulin Detemir 100 units/ml Vial (Levemir) SC SCH (21:57)
[2018-03-19] MEDS ORDERED: Insulin Detemir 100 units/ml Vial (Levemir) SC SCH (22:00)
[2018-03-20] MEDS: Vancomycin 1gm in NS 250ml 1 GM/250 ML BAG IVPB SCH (05:31)
[2018-03-20 07:11] LABS: BASO # 0.02 K/mm3 (0.0-2.0); BASO % 0.5 % (0.0-3.0); EOS # 0.2 (0.0-0.7); EOS % 4.1 % (1.5-5.0); GRAN # 2.17 (1.4-6.5); GRAN % 51.8 % (50.0-68.0); HEMOGLOBIN 11.9 g/dL (14.0-18.0); LYMPH # 1.4 (1.2-3.4); LYMPH % 33.3 % (22.0-35.0); MEAN CELL VOLUME 86.3 fl (80.0-105.0); MEAN CORPUSCULAR HEMOGLOBIN 30.7 pg (25.0-35.0); MEAN CORPUSCULAR HGB CONC 35.5 g/dl (31.0-37.0); MEAN PLATELET VOLUME 9.7 fl (7.0-11.0); MONO # 0.4 (0.1-0.6); MONO % 10.3 % (1.0-6.0); RBC 3.88 10^6/uL (3.5-6.1); RED CELL DISTRIBUTION WIDTH 12.5 % (11.5-14.5); WHITE BLOOD COUNT 4.2 10^3/ul (4.5-11.0)
[2018-03-20 07:39] LABS: ALB/GLOB RATIO 1.1 (1.1-1.8); ALBUMIN 3.8 g/dL (3.0-4.8); ALT/SGPT 30 U/L (7-56); AST/SGOT 24 U/L (17-59); BLOOD UREA NITROGEN 18 mg/dL (7-21); CALCIUM 9.1 mg/dL (8.4-10.5); GFR AFRICAN-AMERICAN > 60; GFR NON-AFRICAN AMERICAN > 60
[2018-03-20] MEDS: Insulin Detemir 100 units/ml Vial (Levemir) SC SCH ×2 (07:58→21:45)
[2018-03-20] MEDS: Insulin Lispro (HUMAlog) HIGH Coverage SC SCH ×4 (07:59→21:46)
--- NOTE | 2018-03-20 08:23 | CP.PCM.PN ---
Subjective - Date & Time of Evaluation Date of Evaluation: 03/20/18 Time of Evaluation: 08:19 - Subjective Subjective: Podiatry Progress Note for Dr. Christensen 48M seen at bedside for lateral left foot wound. Patient is AAO x 3 and NAD, resting comfortably in bed at time of visit. States that he has pain in his foot at the wound site, improved since yesterday. Denies any acute overnight events. Denies any recent N/V/F/C/CP/SOB/D/posterior calf pain when squeezed. Objective - Vital Signs/Intake and Output Vital Signs (last 24 hours): Temp Pulse Resp BP Pulse Ox 97.8 F 78 18 90/63 L 98 03/20/18 06:00 03/20/18 06:00 03/20/18 06:00 03/20/18 06:00 03/20/18 06:00 Intake and Output: 03/20/18 03/20/18 06:59 18:59 Intake Total 800 Output Total 2150 Balance -1350 - Medications Medications: Current Medications Dextrose (Dextrose 50% Inj) 0 ml IV STAT PRN; Protocol PRN Reason: Hypoglycemia Protocol Enoxaparin Sodium (Lovenox) 40 mg SC DAILY [facility] PRN Reason: Protocol Last Admin: 03/19/18 10:25 Dose: 40 mg Famotidine (Pepcid) 20 mg PO 1000,2200 [facility] Last Admin: 03/19/18 21:58 Dose: 20 mg Gabapentin (Neurontin) 200 mg PO TID [facility] PRN Reason: Protocol Last Admin: 03/19/18 17:08 Dose: 200 mg Dextrose (Dextrose 5% In Water 1000 Ml) 1,000 mls @ 0 mls/hr IV .Q0M PRN; Protocol; Per Protocol PRN Reason: Hypoglycemia Protocol Cefepime HCl (Maxipime 1gm) 1 gm in 100 mls @ 100 mls/hr IVPB Q12 [facility] PRN Reason: Protocol Last Admin: 03/19/18 21:57 Dose: 100 mls/hr Vancomycin HCl (Vancomycin 1gm) 1 gm in 250 mls @ 167 mls/hr IVPB Q12H [facility] PRN Reason: Protocol Last Admin: 03/20/18 05:31 Dose: 167 mls/hr Insulin Detemir (Levemir) 10 unit SC ACB [facility] Last Admin: 03/20/18 07:58 Dose: 10 unit Insulin Detemir (Levemir) 10 unit SC HS [facility] Last Admin: 03/19/18 21:57 Dose: 10 units Insulin Human Lispro (Humalog High) 0 units SC ACHS [facility] PRN Reason: Protocol Last Admin: 03/20/18 07:59 Dose: 7 units Midodrine (Proamatine) 5 mg PO TID [facility] Last Admin: 03/19/18 18:23 Dose: Not Given Silver Sulfadiazine (Silvadene 1% 25 Gm) 0 gm TP DAILY [facility] Last Admin: 03/19/18 10:26 Dose: 25 gm - Labs Labs: 03/20/18 06:45 03/20/18 06:45 PT 13.0 SECONDS (9.4-12.5) H 03/17/18 15:25 INR 1.14 03/17/18 15:25 APTT 33.6 Seconds (25.1-36.5) 03/17/18 15:25 - Constitutional Appears: Well, Non-toxic, No Acute Distress - Extremities Exam Additional comments: LE focused exam Vasc: DP/PT pulses 1/4 b/l. Skin temperature warm to warm from proximal to distal. CFT < 3 seconds to all digits b/l. Previously noted edema to lateral left foot is resolved at this time Neuro: Epicritic and protective sensation grossly intact b/l Derm: Approximately 1 cm x 1 cm x 0.3 cm ulceration that probes directly to bone noted to lateral left foot at fifth metatarsal base with wound base noted to be a fibrogranular mix. No periwound erythema and no drainage noted to site today. No malodor, no tracking/tunneling/undermining. No other clinical signs of infection noted. No other open wounds, lesions, maceration, xerosis, abnormal pigmentation or abnormal growths noted MSK: POP to ulceration site. Limited ROM at left ankle joint secondary to destructive changes at ankle joint. Medial and lateral widening at ankle joint appreciated. No other gross deformities appreciated. - Neurological Exam Neurological Exam: Alert, Awake, Oriented x3 - Psychiatric Exam Psychiatric exam: Normal Affect, Normal Mood Assessment and Plan - Assessment and Plan (Free Text) Assessment: 48M seen at bedside for lateral left foot wound with OM of fifth metatarsal base Plan: Patient seen and evaluated with Dr. Christensen Afebrile, absent leukocytosis Wound cx L leg: Staph aureus Arterial duplex: Normal BARRIE's at rest, the right BARRIE may be inaccurate. Possible right tibial occlusive disease L foot MRI: Charcot ankle with collapse of talus. Minimal marrow edema in the proximal fifth metatarsal. Possible early osteomyelitis Patient is seeing doctor at [facility] for Charcot ankle No surgical intervention for osteomyelitis is planned at this time, will treat with [facility] IV abx per ID Wound dressed with Silvadene, DSD Patient stable for DC to subacute rehab facility from podiatric standpoint Patient may WB fully to left foot in surgical shoe [facility] basis Podiatry will continue to follow while in house
[2018-03-20] MEDS: Cefepime 1gm in NS 100ml 1 GM/100 ML BAG IVPB SCH (09:26)
[2018-03-20] MEDS: Enoxaparin 40 mg Syringe SC SCH (09:26)
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
--- NOTE | 2018-03-20 11:22 | CP.PCM.PN ---
Subjective - Date & Time of Evaluation Date of Evaluation: 03/20/18 Time of Evaluation: 10:35 - Subjective Subjective: No fevers, not in distress, improving pain on the left foot, no nausea. Objective - Vital Signs/Intake and Output Vital Signs (last 24 hours): Temp Pulse Resp BP Pulse Ox 98.2 F 82 20 121/84 100 03/19/18 14:00 03/19/18 14:00 03/19/18 14:00 03/19/18 14:00 03/19/18 14:00 - Medications Medications: Current Medications Dextrose (Dextrose 50% Inj) 0 ml IV STAT PRN; Protocol PRN Reason: Hypoglycemia Protocol Enoxaparin Sodium (Lovenox) 40 mg SC DAILY VALERIE PRN Reason: Protocol Last Admin: 03/19/18 10:25 Dose: 40 mg Famotidine (Pepcid) 20 mg PO 1000,2200 [facility] Last Admin: 03/19/18 10:26 Dose: 20 mg Gabapentin (Neurontin) 200 mg PO TID VALERIE PRN Reason: Protocol Last Admin: 03/19/18 17:08 Dose: 200 mg Dextrose (Dextrose 5% In Water 1000 Ml) 1,000 mls @ 0 mls/hr IV .Q0M PRN; Protocol; Per Protocol PRN Reason: Hypoglycemia Protocol Cefepime HCl (Maxipime 1gm) 1 gm in 100 mls @ 100 mls/hr IVPB Q12 VALERIE PRN Reason: Protocol Last Admin: 03/19/18 10:25 Dose: 100 mls/hr Vancomycin HCl (Vancomycin 1gm) 1 gm in 250 mls @ 167 mls/hr IVPB Q12H VALERIE PRN Reason: Protocol Last Admin: 03/19/18 17:12 Dose: 167 mls/hr Insulin Detemir (Levemir) 10 unit SC ACB [facility] Insulin Detemir (Levemir) 10 unit SC HS VALERIE Insulin Human Lispro (Humalog High) 0 units SC ACHS [facility] PRN Reason: Protocol Last Admin: 03/19/18 16:59 Dose: 2 units Midodrine (Proamatine) 5 mg PO TID [facility] Last Admin: 03/19/18 18:23 Dose: Not Given Silver Sulfadiazine (Silvadene 1% 25 Gm) 0 gm TP DAILY [facility] Last Admin: 03/19/18 10:26 Dose: 25 gm - Labs Labs: PT 13.0 SECONDS (9.4-12.5) H 03/17/18 15:25 INR 1.14 03/17/18 15:25 APTT 33.6 Seconds (25.1-36.5) 03/17/18 15:25 - Constitutional Appears: Non-toxic - Head Exam Head Exam: NORMAL INSPECTION - Respiratory Exam Respiratory Exam: Decreased Breath Sounds - Cardiovascular Exam Cardiovascular Exam: +S1, +S2 - GI/Abdominal Exam GI & Abdominal Exam: Soft. absent: Tenderness - Extremities Exam Additional comments: left foot with dressings in place Assessment and Plan - Assessment and Plan (Free Text) Plan: Assessment left foot skin and skin structure infection, with possible early osteomyelitis at base of 5th metatarsal as seen on MRI, wound growing Staph aureus history of Enterococcus faecalis persistent bacteremia DM Charcot arthropathy of the feet Peptic ulcer disease Diabetic gastroparesis Plan on Vancomycin and Cefepime pending sensitivities of the Staph aureus in the wound - reviewed MRI - discussed with Dr. Palmer - may switch to PO Zyvox for at least 4 weeks with weekly ESR, CRP, CBC, CMP while on antibiotics and with outpatient follow up with Dr. Christensen to monitor the wound and foot - told patient that being on antibiotics is not a guarantee of cure of the osteomyelitis and that is why close outpatient follow up with Podiatry is necessary
--- NOTE | 2018-03-20 15:03 | CP.PCM.PN ---
<Cristina Hubbard - Last Filed: 03/20/18 16:09> Subjective - Date & Time of Evaluation Date of Evaluation: 03/20/18 Time of Evaluation: 15:00 - Subjective Subjective: Cristina Hubbard, PGY-1, Internal Medicine Progress Note for Dr. Palmer Patient was seen and evaluated this morning. Patient had no acute overnight events. Patient reports left foot edema. Patient also reports improvement of wound discharge, malodor, and warmth. Patient reports no redness. Patient denies headache, dizziness, chest pain, shortness of breath, abdominal pain, nausea, vomiting, constipation, diarrhea, hematuria, and dysuria. Objective - Vital Signs/Intake and Output Vital Signs (last 24 hours): Temp Pulse Resp BP Pulse Ox 97.8 F 78 18 90/63 L 98 03/20/18 06:00 03/20/18 06:00 03/20/18 06:00 03/20/18 06:00 03/20/18 06:00 Intake and Output: 03/20/18 03/20/18 06:59 18:59 Intake Total 800 480 Output Total 2150 900 Balance -1350 -420 - Medications Medications: Current Medications Dextrose (Dextrose 50% Inj) 0 ml IV STAT PRN; Protocol PRN Reason: Hypoglycemia Protocol Enoxaparin Sodium (Lovenox) 40 mg SC DAILY [facility] PRN Reason: Protocol Last Admin: 03/20/18 09:26 Dose: 40 mg Famotidine (Pepcid) 20 mg PO 1000,2200 [facility] Last Admin: 03/20/18 09:26 Dose: 20 mg Gabapentin (Neurontin) 200 mg PO TID [facility] PRN Reason: Protocol Last Admin: 03/20/18 09:26 Dose: 200 mg Dextrose (Dextrose 5% In Water 1000 Ml) 1,000 mls @ 0 mls/hr IV .Q0M PRN; Protocol; Per Protocol PRN Reason: Hypoglycemia Protocol Cefepime HCl (Maxipime 1gm) 1 gm in 100 mls @ 100 mls/hr IVPB Q12 [facility] PRN Reason: Protocol Last Admin: 03/20/18 09:26 Dose: 100 mls/hr Vancomycin HCl (Vancomycin 1gm) 1 gm in 250 mls @ 167 mls/hr IVPB Q12H [facility] PRN Reason: Protocol Last Admin: 03/20/18 05:31 Dose: 167 mls/hr Insulin Detemir (Levemir) 10 unit SC ACB [facility] Last Admin: 03/20/18 07:58 Dose: 10 unit Insulin Detemir (Levemir) 10 unit SC HS [facility] Last Admin: 03/19/18 21:57 Dose: 10 units Insulin Human Lispro (Humalog High) 0 units SC ACHS [facility] PRN Reason: Protocol Last Admin: 03/20/18 11:52 Dose: 2 units Midodrine (Proamatine) 5 mg PO TID [facility] Last Admin: 03/20/18 09:26 Dose: 5 mg Silver Sulfadiazine (Silvadene 1% 25 Gm) 0 gm TP DAILY [facility] Last Admin: 03/19/18 10:26 Dose: 25 gm - Labs Labs: 03/20/18 06:45 03/20/18 06:45 PT 13.0 SECONDS (9.4-12.5) H 03/17/18 15:25 INR 1.14 03/17/18 15:25 APTT 33.6 Seconds (25.1-36.5) 03/17/18 15:25 - Constitutional Appears: Well, Non-toxic - Head Exam Head Exam: ATRAUMATIC, NORMOCEPHALIC - Eye Exam Eye Exam: EOMI, PERRL - Neck Exam Neck Exam: Full ROM - Respiratory Exam Respiratory Exam: Clear to Ausculation Bilateral, NORMAL BREATHING PATTERN - Cardiovascular Exam Cardiovascular Exam: REGULAR RHYTHM, RRR - GI/Abdominal Exam GI & Abdominal Exam: Soft, Normal Bowel Sounds - Extremities Exam Extremities Exam: Full ROM Additional comments: subjective weakness of bilateral upper and lower extremities +4/5. +0/5 bilateral pedal dorsiflexion and plantarflexion - Back Exam Back Exam: NORMAL INSPECTION - Neurological Exam Neuro motor strength exam: Left Upper Extremity: 5, Right Upper Extremity: 5, Left Lower Extremity: 0 (pedal dorsiflexion and plantarflexion), Right Lower Extremity: 0 (pedal dorsiflexion and plantarflexion) - Psychiatric Exam Psychiatric exam: Normal Affect, Normal Mood - Skin Additional comments: left pedal wound Assessment and Plan (1) Osteomyelitis Status: Acute (2) Diabetes Status: Chronic - Assessment and Plan (Free Text) Assessment: 48 year old male with past medical history of diabetes mellitus I on insulin pump at home, osteomyelitis, talus avascular necrosis, and hypotension presents with left lower leg wound. Plan: Chronic ulcer of left foot 2/2 to trauma vs. history of diabetes -Chronic ulcer of left foot. Rule out osteomyelitis -Patient has history of osteomyelitis. -ESR (03/17): 46, CRP (03/17): <5, Procalcitonin (03/17): <0.05 -VBG lactate (03/17): 1.1 -Foot X ray (03/17): charcot joint/left ankle changes. Soft tissue swelling without acute articular or osseous abnormality. -EKG (03/17): NSR with HR: 83 bpm -Blood culture no growth after 48 hours, no growth on urine culture, HIV nonreactive, RPR nonreactive. -Wound culture results: show Staph Aureus. 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 Minimal marrow edema in the proximal 5th metatarsal. Possible early osteomyelitis. -Therapeutic cefazolin 2gm Q8 for suspected osteomyelitis for 4 weeks. PICC line was ordered for administration of antibiotic after discharge. Patient will finish regimen outpatient. -As per Dr. Clark, patient can be discharged with cefazolin 2 gm Q8 for treatment of osteomyelitis for 4 weeks. Patient should get weekly CBC, CMP, ESR , and CRP while on antibiotics and close follow up with Dr. Christensen to monitor wound and foot. He explained to the patient that close follow up with podiatry is necessary because antibiotics does not guarantee the cure of his osteomyelitis. -Per podiatry resident, Dr. Christensen consulted infectious disease, Dr. Gonzáles , for further workup. -Per podiatry, wound was dressed with silvadene and DSD. Patient is stable and ready for discharge per podiatry. No surgical intervention is warranted per podiatry. Normocytic Anemia -Hgb: 11.9. Ranges between 9.8 and 13 -Continue to monitor Diabetes Mellitus I -Patient's last self reported hemoglobin A1c from few months ago was around 8. -Hemoglobin A1c: 9.4 -Random glucose: 190 at 11:15 -Lispro sliding scale insulin continued. -Levemir 10 U ACB and levemir 10 U HS continued. -Gabapentin 200 mg TID continued -Patient on consistent carbohydrate diet. History of Hypotension -Patient's blood pressure dropped to 85/56 on the morning of 03/19. -Patient continued on home midodrine dose. 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 -Patient was on coumadin in the past, but due to risk of bleeding ulcer, patient was placed on aspirin by Dr. Lopez. -Patient has swollen left foot. Patient is on disability and wears boot on left foot while walking. -Due to immobilization of foot and swollen left foot, duplex lower extremity ultrasound was ordered to rule out DVT. -Patient complained of left arm pain morning of 03/19. -Duplex ultrasound (03/18): shows no sonographic evidence for DVT in bilateral lower extremities. -Duplex ultrasound of bilateral upper extremities (03/19) : shows no DVT. Leukopenia -WBC: 4.2 today. Continue to monitor. Disposition -Patient will follow up at subacute rehabilitation after discharge. GI prophylaxis: pepcid 20 mg daily DVT prophylaxis: lovenox 40 mg daily <Nehemias Palmer - Last Filed: 03/20/18 16:47> Objective - Vital Signs/Intake and Output Vital Signs (last 24 hours): Temp Pulse Resp BP Pulse Ox 98.2 F 88 18 144/96 H 97 03/20/18 16:41 03/20/18 16:41 03/20/18 16:41 03/20/18 16:41 03/20/18 16:41 Intake and Output: 03/20/18 03/20/18 06:59 18:59 Intake Total 800 480 Output Total 2150 900 Balance -1350 -420 - Medications Medications: Current Medications Dextrose (Dextrose 50% Inj) 0 ml IV STAT PRN; Protocol PRN Reason: Hypoglycemia Protocol Enoxaparin Sodium (Lovenox) 40 mg SC DAILY [facility] PRN Reason: Protocol Last Admin: 03/20/18 09:26 Dose: 40 mg Famotidine (Pepcid) 20 mg PO 1000,2200 [facility] Last Admin: 03/20/18 09:26 Dose: 20 mg Gabapentin (Neurontin) 200 mg PO TID [facility] PRN Reason: Protocol Last Admin: 03/20/18 14:00 Dose: Not Given Dextrose (Dextrose 5% In Water 1000 Ml) 1,000 mls @ 0 mls/hr IV .Q0M PRN; Protocol; Per Protocol PRN Reason: Hypoglycemia Protocol Cefazolin Sodium/Dextrose (Ancef Iv 2 Gm Duplex) 2 gm in 50 mls @ 50 mls/hr IVPB Q8 [facility] Stop: 04/17/18 22:01 Insulin Detemir (Levemir) 10 unit SC ACB [facility] Last Admin: 03/20/18 07:58 Dose: 10 unit Insulin Detemir (Levemir) 10 unit SC HS [facility] Last Admin: 03/19/18 21:57 Dose: 10 units Insulin Human Lispro (Humalog High) 0 units SC ACHS [facility] PRN Reason: Protocol Last Admin: 03/20/18 11:52 Dose: 2 units Midodrine (Proamatine) 5 mg PO TID [facility] Last Admin: 03/20/18 14:00 Dose: Not Given Silver Sulfadiazine (Silvadene 1% 25 Gm) 0 gm TP DAILY [facility] Last Admin: 03/19/18 10:26 Dose: 25 gm - Labs Labs: 03/20/18 06:45 03/20/18 06:45 PT 13.0 SECONDS (9.4-12.5) H 03/17/18 15:25 INR 1.14 03/17/18 15:25 APTT 33.6 Seconds (25.1-36.5) 03/17/18 15:25 Attending/Attestation - Attestation I have personally seen and examined this patient.: Yes I have fully participated in the care of the patient.: Yes I have reviewed all pertinent clinical information, including history, physical exam and plan: Yes Notes (Text): 03/20/18 16:44 Attending note; Patient seen and examined with resident. Patient is a 48 year old male with past medical history of diabetes mellitus type 1, on insulin pump, osteomyelitis, talus avascular necrosis, and chronic hypotension presents with left lower leg wound. Patient reports that this wound has been chronic and been present for the past month. The patient was referred from data miner Dr. Christensen for admission for nonhealing wound. Currently patient has left ankle deformity which is chronic/ charcot's joint. Ulceration on the fifth metatarsal area. No significant discharge noted. Mild erythema and redness. Podiatry evaluation appreciated. Local wound care done. X-ray showed charcot's joint and soft tissue swelling with no significant osteomyelitis. MRI showed minimal bone marrow edema suggesting early osteomyelitis. Wound culture shows MSSA. on IV vancomycin and cefepime. ID evaluation appreciated. Patient can be discharged with IV Ancef for 4-6 weeks. Upper extremity Doppler is negative for DVT. Arterial Doppler showed normal BARRIE. Diabetes; continue Levemir. Diabetes with significant autonomic neuropathy. Continue midodrine for hypotension. Physical therapy evaluation appreciated. Subacute rehabilitation recommended. Case with social services manager for DC planning. PICC line placement ordered for long-term IV antibiotics. Upon discharge the patient will follow-up with PMD Dr. Lopez.
[2018-03-20] MEDS: ceFAZolin IV 2 gm in 50 mL D5W IVPB SCH (21:45)
[2018-03-21] MEDS: ceFAZolin IV 2 gm in 50 mL D5W IVPB SCH ×3 (05:25→21:50)
[2018-03-21 07:03] LABS: BASO # 0.02 K/mm3 (0.0-2.0); BASO % 0.4 % (0.0-3.0); EOS # 0.2 (0.0-0.7); EOS % 3.4 % (1.5-5.0); GRAN # 2.71 (1.4-6.5); GRAN % 57.9 % (50.0-68.0); HEMOGLOBIN 11.3 g/dL (14.0-18.0); LYMPH # 1.2 (1.2-3.4); LYMPH % 25.9 % (22.0-35.0); MEAN CELL VOLUME 86.8 fl (80.0-105.0); MEAN CORPUSCULAR HEMOGLOBIN 30.5 pg (25.0-35.0); MEAN CORPUSCULAR HGB CONC 35.2 g/dl (31.0-37.0); MEAN PLATELET VOLUME 10.1 fl (7.0-11.0); MONO # 0.6 (0.1-0.6); MONO % 12.4 % (1.0-6.0); RBC 3.7 10^6/uL (3.5-6.1); RED CELL DISTRIBUTION WIDTH 12.4 % (11.5-14.5); WHITE BLOOD COUNT 4.7 10^3/ul (4.5-11.0)
[2018-03-21 07:43] LABS: ALB/GLOB RATIO 1.1 (1.1-1.8); ALBUMIN 3.6 g/dL (3.0-4.8); ALT/SGPT 39 U/L (7-56); AST/SGOT 25 U/L (17-59); BLOOD UREA NITROGEN 22 mg/dL (7-21); CALCIUM 8.6 mg/dL (8.4-10.5); GFR AFRICAN-AMERICAN > 60; GFR NON-AFRICAN AMERICAN > 60
[2018-03-21] MEDS: Insulin Lispro (HUMAlog) HIGH Coverage SC SCH ×2 (08:13→21:53)
[2018-03-21] MEDS: Insulin Detemir 100 units/ml Vial (Levemir) SC SCH (08:14)
--- NOTE | 2018-03-21 09:17 | CP.PCM.PN ---
<Cristina Hubbard - Last Filed: 03/21/18 14:54> Subjective - Date & Time of Evaluation Date of Evaluation: 03/21/18 Time of Evaluation: 09:13 - Subjective Subjective: Cristina Hubbard, PGY-1 note, Internal Medicine Progress Note for Dr. Palmer Patient seen and examined this morning. No overnight events occurred. Patient reports left upper arm pain. Patient reports improved warmth, swelling, discharge, and malodor of left pedal wound. Patient denies chest pain, heart palpitations, shortness of breath, nausea, vomiting, constipation, diarrhea, abdominal pain, dysuria, and hematuria. Objective - Vital Signs/Intake and Output Vital Signs (last 24 hours): Temp Pulse Resp BP Pulse Ox 97.5 F L 83 18 120/85 98 03/21/18 06:00 03/21/18 06:00 03/21/18 06:00 03/21/18 06:00 03/21/18 06:00 - Medications Medications: Current Medications Dextrose (Dextrose 50% Inj) 0 ml IV STAT PRN; Protocol PRN Reason: Hypoglycemia Protocol Enoxaparin Sodium (Lovenox) 40 mg SC DAILY [facility] PRN Reason: Protocol Last Admin: 03/20/18 09:26 Dose: 40 mg Famotidine (Pepcid) 20 mg PO 1000,2200 [facility] Last Admin: 03/20/18 21:45 Dose: 20 mg Gabapentin (Neurontin) 200 mg PO TID [facility] PRN Reason: Protocol Last Admin: 03/20/18 17:39 Dose: 200 mg Dextrose (Dextrose 5% In Water 1000 Ml) 1,000 mls @ 0 mls/hr IV .Q0M PRN; Protocol; Per Protocol PRN Reason: Hypoglycemia Protocol Cefazolin Sodium/Dextrose (Ancef Iv 2 Gm Duplex) 2 gm in 50 mls @ 50 mls/hr IVPB Q8 [facility] Stop: 04/17/18 22:01 Last Admin: 03/21/18 05:25 Dose: 50 mls/hr Insulin Detemir (Levemir) 10 unit SC ACB [facility] Last Admin: 03/21/18 08:14 Dose: 10 unit Insulin Detemir (Levemir) 10 unit SC HS [facility] Last Admin: 03/20/18 21:45 Dose: 10 units Insulin Human Lispro (Humalog High) 0 units SC ACHS [facility] PRN Reason: Protocol Last Admin: 03/21/18 08:13 Dose: 12 units Midodrine (Proamatine) 5 mg PO TID [facility] Last Admin: 03/20/18 17:39 Dose: 5 mg Silver Sulfadiazine (Silvadene 1% 25 Gm) 0 gm TP DAILY [facility] Last Admin: 03/19/18 10:26 Dose: 25 gm - Labs Labs: 03/21/18 06:20 03/21/18 06:20 PT 13.0 SECONDS (9.4-12.5) H 03/17/18 15:25 INR 1.14 03/17/18 15:25 APTT 33.6 Seconds (25.1-36.5) 03/17/18 15:25 - Head Exam Head Exam: ATRAUMATIC, NORMOCEPHALIC - Eye Exam Eye Exam: EOMI Pupil Exam: PERRL - Respiratory Exam Respiratory Exam: Clear to Ausculation Bilateral, NORMAL BREATHING PATTERN - Cardiovascular Exam Cardiovascular Exam: REGULAR RHYTHM, RRR - GI/Abdominal Exam GI & Abdominal Exam: Soft, Normal Bowel Sounds - Extremities Exam Extremities Exam: Pedal Edema. absent: Full ROM Additional comments: Left pedal edema - Neurological Exam Neuro motor strength exam: Left Upper Extremity: 5, Right Upper Extremity: 5, Left Lower Extremity: 0, Right Lower Extremity: 0 Additional comments: +0/5 MSK of bilateral pedal dorsiflexion and plantarflexion - Psychiatric Exam Psychiatric exam: Normal Affect, Normal Mood - Skin Skin Exam: Dry, Intact, Warm Assessment and Plan (1) Osteomyelitis Status: Acute (2) Diabetes Status: Chronic - Assessment and Plan (Free Text) Assessment: 48 year old male with past medical history of diabetes mellitus I on insulin pump at home, osteomyelitis, talus avascular necrosis, and hypotension presents with left lower leg wound. Plan: Osteomyelitis 2/2 to trauma vs. history of diabetes -Chronic ulcer of left foot. Rule out osteomyelitis -Patient has history of osteomyelitis. -ESR (8/6): 46, CRP (8/6): <5, Procalcitonin (8/6): <0.05 -VBG lactate (8/): 1.1 -Foot X ray (03/17): charcot joint/left ankle changes. Soft tissue swelling without acute articular or osseous abnormality. -Blood culture no growth after 48 hours, no growth on urine culture, HIV nonreactive, RPR nonreactive. -Wound culture results: show Methicillin sensitive Staph Aureus. 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 Minimal marrow edema in the proximal 5th metatarsal. Possible early osteomyelitis. -Therapeutic cefazolin 2gm Q8 for suspected osteomyelitis for 4 weeks. Given first dose yesterday. PICC line placed today. Patient will finish regimen outpatient. -wound was dressed with silvadine and DSD by podiatry Normocytic Anemia -Hgb: 11.3. Ranges between 9.8 and 13 -Continue to monitor Diabetes Mellitus I -Patient's last self reported hemoglobin A1c from few months ago was around 8. -Hemoglobin A1c: 9.4 -Random glucose: 365 this morning. -Lispro sliding scale insulin continued. -Increased Levemir ACB and HS to 15 U each. -Gabapentin 200 mg TID continued -Patient on consistent carbohydrate diet. History of Hypotension -Patient continued on home midodrine dose. 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 -Duplex ultrasound of bilateral upper extremities (03/19) : shows no DVT. Leukopenia-resolved -Continue to monitor. Disposition -Patient to be discharged tomorrow. -Patient will follow up at subacute rehabilitation after discharge. <Nehemias Palmer - Last Filed: 03/22/18 13:24> Objective - Vital Signs/Intake and Output Vital Signs (last 24 hours): Temp Pulse Resp BP Pulse Ox 98 F 77 20 90/63 L 96 03/22/18 07:52 03/22/18 07:52 03/22/18 07:52 03/22/18 07:52 03/22/18 07:52 Intake and Output: 03/22/18 03/22/18 06:59 18:59 Intake Total 1080 Output Total 850 Balance 230 - Labs Labs: 03/22/18 05:30 03/22/18 05:30 PT 13.0 SECONDS (9.4-12.5) H 03/17/18 15:25 INR 1.14 03/17/18 15:25 APTT 33.6 Seconds (25.1-36.5) 03/17/18 15:25 Attending/Attestation - Attestation I have personally seen and examined this patient.: Yes I have fully participated in the care of the patient.: Yes I have reviewed all pertinent clinical information, including history, physical exam and plan: Yes Notes (Text): 03/22/18 13:23 Attending note; Patient seen and examined with resident. Patient is a 48 year old male with past medical history of diabetes mellitus type 1, on insulin pump, osteomyelitis, talus avascular necrosis, and chronic hypotension presents with left lower leg wound. Chronic nonhealing diabetic wound. Acute osteomyelitis of the left foot. Wound culture shows MSSA. Currently on IV Ancef complete 4-6 weeks. Case discussed with ID in detail. Upper extremity and lower extremity Doppler is negative for DVT. Arterial Doppler showed normal BARRIE. Diabetes; continue Levemir. Diabetes with significant autonomic neuropathy. Continue midodrine for hypotension. Physical therapy evaluation appreciated. Subacute rehabilitation recommended. PICC line placement. Possible DC tomorrow to rehabilitation. Upon discharge the patient will follow-up with PMD Dr. Lopez.
[2018-03-21] MEDS: Enoxaparin 40 mg Syringe SC SCH (10:13)
--- NOTE | 2018-03-21 18:04 | CP.PCM.PN ---
<Fritz Merlos - Last Filed: 03/21/18 18:02> Subjective - Date & Time of Evaluation Date of Evaluation: 03/21/18 Time of Evaluation: 18:02 - Subjective Subjective: Podiatry Progress Note for Dr. Santiago 48M seen at bedside for lateral left foot wound. Patient is AAO x 3 and NAD, resting comfortably in bed at time of visit. States that he has pain in his foot at the wound site, improved since yesterday. Denies any acute overnight events. Denies any recent N/V/F/C/CP/SOB/D/posterior calf pain when squeezed. Objective - Vital Signs/Intake and Output Vital Signs (last 24 hours): Temp Pulse Resp BP Pulse Ox 97.4 F L 89 20 131/92 H 98 03/21/18 14:00 03/21/18 14:00 03/21/18 14:00 03/21/18 14:00 03/21/18 14:00 - Medications Medications: Current Medications Dextrose (Dextrose 50% Inj) 0 ml IV STAT PRN; Protocol PRN Reason: Hypoglycemia Protocol Enoxaparin Sodium (Lovenox) 40 mg SC DAILY [facility] PRN Reason: Protocol Last Admin: 03/21/18 10:13 Dose: 40 mg Famotidine (Pepcid) 20 mg PO 1000,2200 [facility] Last Admin: 03/21/18 10:13 Dose: 20 mg Gabapentin (Neurontin) 200 mg PO TID [facility] PRN Reason: Protocol Last Admin: 03/21/18 13:43 Dose: 200 mg Dextrose (Dextrose 5% In Water 1000 Ml) 1,000 mls @ 0 mls/hr IV .Q0M PRN; Protocol; Per Protocol PRN Reason: Hypoglycemia Protocol Cefazolin Sodium/Dextrose (Ancef Iv 2 Gm Duplex) 2 gm in 50 mls @ 50 mls/hr IVPB Q8 [facility] Stop: 04/17/18 22:01 Last Admin: 03/21/18 16:42 Dose: 50 mls/hr Insulin Detemir (Levemir) 15 unit SC HS [facility] Insulin Detemir (Levemir) 15 unit SC ACB [facility] Insulin Human Lispro (Humalog High) 0 units SC ACHS [facility] PRN Reason: Protocol Last Admin: 03/21/18 08:13 Dose: 12 units Midodrine (Proamatine) 5 mg PO TID [facility] Last Admin: 03/21/18 13:42 Dose: 5 mg Silver Sulfadiazine (Silvadene 1% 25 Gm) 0 gm TP DAILY [facility] Last Admin: 03/19/18 10:26 Dose: 25 gm - Labs Labs: 03/21/18 06:20 03/21/18 06:20 PT 13.0 SECONDS (9.4-12.5) H 03/17/18 15:25 INR 1.14 03/17/18 15:25 APTT 33.6 Seconds (25.1-36.5) 03/17/18 15:25 - Constitutional Appears: Well, Non-toxic, No Acute Distress - Extremities Exam Additional comments: LE focused exam Vasc: DP/PT pulses 1/4 b/l. Skin temperature warm to warm from proximal to distal. CFT < 3 seconds to all digits b/l. Previously noted edema to lateral left foot is resolved at this time Neuro: Epicritic and protective sensation grossly intact b/l Derm: Approximately 1 cm x 1 cm x 0.3 cm ulceration that probes directly to bone noted to lateral left foot at fifth metatarsal base with wound base noted to be a fibrogranular mix. No periwound erythema and no drainage noted to site today. No malodor, no tracking/tunneling/undermining. No other clinical signs of infection noted. No other open wounds, lesions, maceration, xerosis, abnormal pigmentation or abnormal growths noted. Wound appears stable at this time MSK: POP to ulceration site. Limited ROM at left ankle joint secondary to destructive changes at ankle joint. Medial and lateral widening at ankle joint appreciated. No other gross deformities appreciated. - Neurological Exam Neurological Exam: Alert, Awake, Oriented x3 - Psychiatric Exam Psychiatric exam: Normal Affect, Normal Mood Assessment and Plan - Assessment and Plan (Free Text) Assessment: 48M seen at bedside for lateral left foot wound Plan: Patient seen and evaluated Plan discussed with Dr. Santiago Afebrile, absent leukocytosis Wound cx L leg: Staph aureus Arterial duplex: Normal BARRIE's at rest, the right BARRIE may be inaccurate. Possible right tibial occlusive disease L foot MRI: Charcot ankle with collapse of talus. Minimal marrow edema in the proximal fifth metatarsal. Possible early osteomyelitis Patient is seeing doctor at [facility] for Charcot ankle No surgical intervention for osteomyelitis is planned at this time, will treat with assisted IV abx per ID at outpatient facility Wound dressed with Silvadene, DSD Patient stable for DC to subacute rehab facility from podiatric standpoint Patient may WB fully to left foot in surgical shoe [facility] Podiatry will continue to follow while in house <Enrico Santiagokenzie - Last Filed: 03/21/18 19:30> Objective - Vital Signs/Intake and Output Vital Signs (last 24 hours): Temp Pulse Resp BP Pulse Ox 97.4 F L 89 20 131/92 H 98 03/21/18 14:00 03/21/18 14:00 03/21/18 14:00 03/21/18 14:00 03/21/18 14:00 - Medications Medications: Current Medications Dextrose (Dextrose 50% Inj) 0 ml IV STAT PRN; Protocol PRN Reason: Hypoglycemia Protocol Enoxaparin Sodium (Lovenox) 40 mg SC DAILY [facility] PRN Reason: Protocol Last Admin: 03/21/18 10:13 Dose: 40 mg Famotidine (Pepcid) 20 mg PO 1000,2200 [facility] Last Admin: 03/21/18 10:13 Dose: 20 mg Gabapentin (Neurontin) 200 mg PO TID [facility] PRN Reason: Protocol Last Admin: 03/21/18 19:14 Dose: 200 mg Dextrose (Dextrose 5% In Water 1000 Ml) 1,000 mls @ 0 mls/hr IV .Q0M PRN; Protocol; Per Protocol PRN Reason: Hypoglycemia Protocol Cefazolin Sodium/Dextrose (Ancef Iv 2 Gm Duplex) 2 gm in 50 mls @ 50 mls/hr IVPB Q8 [facility] Stop: 04/17/18 22:01 Last Admin: 03/21/18 16:42 Dose: 50 mls/hr Insulin Detemir (Levemir) 15 unit SC HS [facility] Insulin Detemir (Levemir) 15 unit SC ACB [facility] Insulin Human Lispro (Humalog High) 0 units SC ACHS [facility] PRN Reason: Protocol Last Admin: 03/21/18 08:13 Dose: 12 units Midodrine (Proamatine) 5 mg PO TID [facility] Last Admin: 03/21/18 19:14 Dose: 5 mg Silver Sulfadiazine (Silvadene 1% 25 Gm) 0 gm TP DAILY [facility] Last Admin: 03/19/18 10:26 Dose: 25 gm - Labs Labs: 03/21/18 06:20 03/21/18 06:20 PT 13.0 SECONDS (9.4-12.5) H 03/17/18 15:25 INR 1.14 03/17/18 15:25 APTT 33.6 Seconds (25.1-36.5) 03/17/18 15:25 Attending/Attestation - Attestation I have personally seen and examined this patient.: Yes I have fully participated in the care of the patient.: Yes I have reviewed all pertinent clinical information, including history, physical exam and plan: Yes
--- NOTE | 2018-03-21 18:05 | RAD ---
Date of service: 03/21/2018 HISTORY: PICC line tip position COMPARISON: 06/15/2017 FINDINGS: LUNGS: No active pulmonary disease. PLEURA: No significant pleural effusion identified, no pneumothorax apparent. CARDIOVASCULAR: PICC line in satisfactory position the tip is within 3 cm of the cavoatrial junction. OSSEOUS STRUCTURES: No significant abnormalities. VISUALIZED UPPER ABDOMEN: Normal. OTHER FINDINGS: None. IMPRESSION: Satisfactory position of recently placed PICC line. No adverse findings.
--- NOTE | 2018-03-21 18:07 | CP.PCM.PN ---
Subjective - Date & Time of Evaluation Date of Evaluation: 03/21/18 Time of Evaluation: 11:10 - Subjective Subjective: A little less pain in the left foot, no fevers, not in distress, no nausea, no diarrhea. Objective - Vital Signs/Intake and Output Vital Signs (last 24 hours): Temp Pulse Resp BP Pulse Ox 97.4 F L 89 20 131/92 H 98 03/21/18 14:00 03/21/18 14:00 03/21/18 14:00 03/21/18 14:00 03/21/18 14:00 - Medications Medications: Current Medications Dextrose (Dextrose 50% Inj) 0 ml IV STAT PRN; Protocol PRN Reason: Hypoglycemia Protocol Enoxaparin Sodium (Lovenox) 40 mg SC DAILY [facility] PRN Reason: Protocol Last Admin: 03/21/18 10:13 Dose: 40 mg Famotidine (Pepcid) 20 mg PO 1000,2200 [facility] Last Admin: 03/21/18 10:13 Dose: 20 mg Gabapentin (Neurontin) 200 mg PO TID [facility] PRN Reason: Protocol Last Admin: 03/21/18 13:43 Dose: 200 mg Dextrose (Dextrose 5% In Water 1000 Ml) 1,000 mls @ 0 mls/hr IV .Q0M PRN; Protocol; Per Protocol PRN Reason: Hypoglycemia Protocol Cefazolin Sodium/Dextrose (Ancef Iv 2 Gm Duplex) 2 gm in 50 mls @ 50 mls/hr IVPB Q8 [facility] Stop: 04/17/18 22:01 Last Admin: 03/21/18 16:42 Dose: 50 mls/hr Insulin Detemir (Levemir) 15 unit SC HS [facility] Insulin Detemir (Levemir) 15 unit SC ACB [facility] Insulin Human Lispro (Humalog High) 0 units SC ACHS [facility] PRN Reason: Protocol Last Admin: 03/21/18 08:13 Dose: 12 units Midodrine (Proamatine) 5 mg PO TID [facility] Last Admin: 03/21/18 13:42 Dose: 5 mg Silver Sulfadiazine (Silvadene 1% 25 Gm) 0 gm TP DAILY [facility] Last Admin: 03/19/18 10:26 Dose: 25 gm - Labs Labs: 03/21/18 06:20 03/21/18 06:20 PT 13.0 SECONDS (9.4-12.5) H 03/17/18 15:25 INR 1.14 03/17/18 15:25 APTT 33.6 Seconds (25.1-36.5) 03/17/18 15:25 - Constitutional Appears: Non-toxic, Chronically Ill - Head Exam Head Exam: NORMAL INSPECTION - Neck Exam Neck Exam: absent: Meningismus - Respiratory Exam Respiratory Exam: Decreased Breath Sounds - Cardiovascular Exam Cardiovascular Exam: +S1, +S2 - GI/Abdominal Exam GI & Abdominal Exam: Soft. absent: Tenderness - Extremities Exam Additional comments: left foot with dressings in place Assessment and Plan - Assessment and Plan (Free Text) Plan: Assessment left foot skin and skin structure infection, with possible early osteomyelitis at base of 5th metatarsal as seen on MRI, wound growing methicillin-sensitive Staph aureus history of Enterococcus faecalis persistent bacteremia DM Charcot arthropathy of the feet Peptic ulcer disease Diabetic gastroparesis Plan we have switched to IV cefazolin for at least 4 weeks with weekly ESR, CRP, CBC , CMP while on antibiotics and with outpatient follow up with Dr. Christensen to monitor the wound and foot - told patient that being on antibiotics is not a guarantee of cure of the osteomyelitis and that is why close outpatient follow up with Podiatry is necessary
[2018-03-21] MEDS ORDERED: Insulin Detemir 100 units/ml Vial (Levemir) SC SCH (22:00)
[2018-03-22] MEDS: ceFAZolin IV 2 gm in 50 mL D5W IVPB SCH (05:50)
[2018-03-22 06:01] LABS: BASO # 0.02 K/mm3 (0.0-2.0); BASO % 0.3 % (0.0-3.0); EOS # 0.3 (0.0-0.7); EOS % 4.1 % (1.5-5.0); GRAN # 3.75 (1.4-6.5); GRAN % 62.1 % (50.0-68.0); HEMOGLOBIN 11.9 g/dL (14.0-18.0); LYMPH # 1.6 (1.2-3.4); LYMPH % 25.6 % (22.0-35.0); MEAN CELL VOLUME 86.5 fl (80.0-105.0); MEAN CORPUSCULAR HEMOGLOBIN 30.8 pg (25.0-35.0); MEAN CORPUSCULAR HGB CONC 35.6 g/dl (31.0-37.0); MONO # 0.5 (0.1-0.6); MONO % 7.9 % (1.0-6.0); RBC 3.86 10^6/uL (3.5-6.1); RED CELL DISTRIBUTION WIDTH 12.6 % (11.5-14.5); WHITE BLOOD COUNT 6.1 10^3/ul (4.5-11.0)
[2018-03-22 06:25] LABS: BLOOD UREA NITROGEN 21 mg/dL (7-21); GFR AFRICAN-AMERICAN > 60; GFR NON-AFRICAN AMERICAN > 60
[2018-03-22 06:26] LABS: ALB/GLOB RATIO 1.1 (1.1-1.8); ALBUMIN 3.8 g/dL (3.0-4.8); ALT/SGPT 26 U/L (7-56); AST/SGOT 23 U/L (17-59); CALCIUM 9.1 mg/dL (8.4-10.5)
[2018-03-22] MEDS ORDERED: Insulin Detemir 100 units/ml Vial (Levemir) SC SCH (07:30)
[2018-03-22 07:52] VITALS: BP 90/63; PULSE 77; RESP 20; TEMP 98; O2SAT 96
[2018-03-22] MEDS: Insulin Lispro (HUMAlog) HIGH Coverage SC SCH ×2 (08:19→11:44)
[2018-03-22] MEDS: Enoxaparin 40 mg Syringe SC SCH (09:13)
[2018-03-22] MEDS: Silver Sulfadiazine 1% Cream (25 gm) TP SCH (09:14)
--- NOTE | 2018-03-22 10:33 | CP.PCM.PN ---
<Eva Kevinbonnie - Last Filed: 03/22/18 10:27> Subjective - Date & Time of Evaluation Date of Evaluation: 03/22/18 Time of Evaluation: 10:28 - Subjective Subjective: Podiatry Progress Note for Dr. Santiago 48 y/o male seen at bedside for lateral left foot wound. Patient is AAO x 3 and NAD, resting comfortably in bed at time of visit. Patient states that he has pain in his foot at the wound site, improved since yesterday. Denies any acute overnight events. Denies any recent N/V/F/C/CP/SOB/D/posterior calf pain when squeezed. Objective - Vital Signs/Intake and Output Vital Signs (last 24 hours): Temp Pulse Resp BP Pulse Ox 98 F 77 20 90/63 L 96 03/22/18 07:52 03/22/18 07:52 03/22/18 07:52 03/22/18 07:52 03/22/18 07:52 Intake and Output: 03/22/18 03/22/18 06:59 18:59 Intake Total 1080 Output Total 850 Balance 230 - Medications Medications: Current Medications Dextrose (Dextrose 50% Inj) 0 ml IV STAT PRN; Protocol PRN Reason: Hypoglycemia Protocol Enoxaparin Sodium (Lovenox) 40 mg SC DAILY [facility] PRN Reason: Protocol Last Admin: 03/22/18 09:13 Dose: 40 mg Famotidine (Pepcid) 20 mg PO 1000,2200 [facility] Last Admin: 03/22/18 09:14 Dose: 20 mg Gabapentin (Neurontin) 200 mg PO TID [facility] PRN Reason: Protocol Last Admin: 03/22/18 09:13 Dose: 200 mg Dextrose (Dextrose 5% In Water 1000 Ml) 1,000 mls @ 0 mls/hr IV .Q0M PRN; Protocol; Per Protocol PRN Reason: Hypoglycemia Protocol Cefazolin Sodium/Dextrose (Ancef Iv 2 Gm Duplex) 2 gm in 50 mls @ 50 mls/hr IVPB Q8 [facility] Stop: 04/17/18 22:01 Last Admin: 03/22/18 05:50 Dose: 50 mls/hr Insulin Detemir (Levemir) 15 unit SC HS [facility] Last Admin: 03/21/18 21:52 Dose: 15 units Insulin Detemir (Levemir) 15 unit SC ACB [facility] Last Admin: 03/22/18 08:19 Dose: 15 u Insulin Human Lispro (Humalog High) 0 units SC ACHS [facility] PRN Reason: Protocol Last Admin: 03/22/18 08:19 Dose: Not Given Midodrine (Proamatine) 5 mg PO TID [facility] Last Admin: 03/22/18 09:13 Dose: 5 mg Silver Sulfadiazine (Silvadene 1% 25 Gm) 0 gm TP DAILY [facility] Last Admin: 03/22/18 09:14 Dose: Not Given - Labs Labs: 03/22/18 05:30 03/22/18 05:30 PT 13.0 SECONDS (9.4-12.5) H 03/17/18 15:25 INR 1.14 03/17/18 15:25 APTT 33.6 Seconds (25.1-36.5) 03/17/18 15:25 - Constitutional Appears: Well, Non-toxic, No Acute Distress - Head Exam Head Exam: ATRAUMATIC, NORMOCEPHALIC - Extremities Exam Additional comments: LE focused exam Vasc: DP and PT pulses 1/4 b/l. Skin temperature warm to warm from proximal to distal. CFT < 3 seconds to all digits b/l. Previously noted edema to lateral left foot is resolved at this time Neuro: Epicritic and protective sensation grossly intact b/l Derm: Approximately 1 cm x 1 cm x 0.3 cm ulceration that probes directly to bone noted to lateral left foot at fifth metatarsal base with wound base noted to be mostly granular. No periwound erythema and no drainage noted to site today. No malodor, no tracking/tunneling/undermining. No other clinical signs of infection noted. No other open wounds, lesions, maceration, xerosis, abnormal pigmentation or abnormal growths noted. Wound appears stable at this time MSK: POP to ulceration site. Limited ROM at left ankle joint secondary to destructive changes at ankle joint. Medial and lateral widening at ankle joint appreciated. No other gross deformities appreciated. - Neurological Exam Neurological Exam: Alert, Awake, Oriented x3 - Psychiatric Exam Psychiatric exam: Normal Affect, Normal Mood Assessment and Plan - Assessment and Plan (Free Text) Assessment: 48 y/o male seen at bedside for lateral left foot wound Plan: Patient seen and evaluated with Dr. Santiago Afebrile, absent leukocytosis Wound cx L leg: Staph aureus Arterial duplex: Normal BARRIE's at rest, the right BARRIE may be inaccurate. Possible right tibial occlusive disease L foot MRI: Charcot ankle with collapse of talus. Minimal marrow edema in the proximal fifth metatarsal. Possible early osteomyelitis Patient is seeing doctor at [facility] for Charcot ankle No surgical intervention for osteomyelitis is planned at this time, will treat with terminal block assembler IV abx per ID at outpatient facility Wound cleased with saline and dressed with Silvadene, DSD Patient stable for DC to subacute rehab facility from podiatric standpoint Patient may WB fully to left foot in surgical shoe [facility] Podiatry will continue to follow while in house <Bassem Santiago - Last Filed: 03/22/18 13:49> Objective - Vital Signs/Intake and Output Vital Signs (last 24 hours): Temp Pulse Resp BP Pulse Ox 98 F 77 20 90/63 L 96 03/22/18 07:52 03/22/18 07:52 03/22/18 07:52 03/22/18 07:52 03/22/18 07:52 Intake and Output: 03/22/18 03/22/18 06:59 18:59 Intake Total 1080 Output Total 850 Balance 230 - Labs Labs: 03/22/18 05:30 03/22/18 05:30 PT 13.0 SECONDS (9.4-12.5) H 03/17/18 15:25 INR 1.14 03/17/18 15:25 APTT 33.6 Seconds (25.1-36.5) 03/17/18 15:25 Attending/Attestation - Attestation I have personally seen and examined this patient.: Yes I have fully participated in the care of the patient.: Yes I have reviewed all pertinent clinical information, including history, physical exam and plan: Yes
== END 2018-03-22 13:04 | DRG 638 ==
LOC: ED 13:53 → ERH 16:17 → INTOOBSV 16:17 → ERH 17:27 → 5RNO 18:33 → OBSVTOIN 03-19 13:42
PROVIDERS: ADMIT Internal Medicine; ATTEND Internal Medicine
PROC: 02HV33Z Insertion of Infusion Device into Superior Vena Cava, Percutaneous Approach (ICD-10-PCS; principal; 2018-03-21)
PROC: B54NZZA Ultrasonography of Left Upper Extremity Veins, Guidance (ICD-10-PCS; 2018-03-21)
DX: E10.69 Type 1 diabetes mellitus with other specified complication (principal); M86.172 Other acute osteomyelitis, left ankle and foot; M87.87 Other osteonecrosis, ankle, foot and toes; E10.621 Type 1 diabetes mellitus with foot ulcer; E10.610 Type 1 diabetes mellitus with diabetic neuropathic arthropathy; L97.529 Non-pressure chronic ulcer of other part of left foot with unspecified severity; M14.672 Charcot's joint, left ankle and foot; B95.61 Methicillin susceptible Staphylococcus aureus infection as the cause of diseases classified elsewhere; E10.65 Type 1 diabetes mellitus with hyperglycemia; E10.43 Type 1 diabetes mellitus with diabetic autonomic (poly)neuropathy; K31.84 Gastroparesis; I95.89 Other hypotension; K27.9 Peptic ulcer, site unspecified, unspecified as acute or chronic, without hemorrhage or perforation; D64.9 Anemia, unspecified; G51.0 Bell's palsy; Z96.41 Presence of insulin pump (external) (internal); M21.6X2 Other acquired deformities of left foot; D72.819 Decreased white blood cell count, unspecified; Z86.73 Personal history of transient ischemic attack (TIA), and cerebral infarction without residual deficits; Z86.718 Personal history of other venous thrombosis and embolism

== ENCOUNTER 2018-08-05 18:24 | Emergency (ER) | payer MEDICARE, OTHER ==
[2018-08-05 18:24] VITALS: BMI 22.3
[2018-08-05] MEDS ORDERED: Sodium Chloride 0.9% 1,000 ML IV STA (19:29)
--- NOTE | 2018-08-05 19:37 | ED PDOC ---
Arrival/HPI - General Chief Complaint: Abdominal Pain Time Seen by Provider: 08/05/18 18:53 Historian: Patient - History of Present Illness Narrative History of Present Illness (Text): 08/05/18 19:30 48 m with hx dm1 and osteomyelitis of the left foot presents to the ED with chief complaint of mid abdominal pain which started last night. Patient states the pain started just above his umbilicus and now radiates to both sides. P atient reports one episode of nb/nb emesis, no diarrhea, +constipation, no associated fever. Patient has a secondary complaint of left upper arm pain, worse with movement, no reported trauma. Time/Duration: 24 hours Symptom Onset: Gradual Symptom Course: Unchanged Activities at Onset: Light Context: Home Past Medical History - Provider Review Nursing Documentation Reviewed: Yes - Infectious Disease Hx of Infectious Diseases: None - Tetanus Immunization Tetanus Immunization: Unknown - Past Medical History Past Medical History: Non-Contributing - Cardiac Hx Pacemaker: No - Pulmonary Hx Respiratory Disorders: No - Neurological Hx Neurological Disorder: Yes Hx Dizziness: Yes Hx Transient Ischemic Attacks (TIA): Yes - HEENT Hx HEENT Disorder: No - Renal Hx Renal Disorder: No - Endocrine/Metabolic Hx Diabetes Mellitus Type 1: Yes (poorly controlled with frequent syncopal episodes) - Hematological/Oncological Hx Cancer: No - Integumentary Hx Dermatological Disorder: Yes (flores to bilateral heels) Other/Comment: heels ulcer - Musculoskeletal/Rheumatological Hx Musculoskeletal Disorders: Yes (RIGHT SHOULDER ROTATOR CUFF [id number]) Hx Falls: Yes Hx Fractures: Yes (LEFT ANKLE) Hx Unsteady Gait: Yes (CRUTCHES,SPECIAL SHOES) Other/Comment: ARTIFICIAL JAW-PHYSICAL ALERCATION,BROKEN NOSE,HAD SX. - Gastrointestinal Hx Gastrointestinal Disorders: No - Genitourinary/Gynecological Hx Genitourinary Disorders: No - Psychiatric Hx Psychophysiologic Disorder: No Hx Substance Use: No - Past Surgical History Past Surgical History: Non-Contributing - Surgical History Hx Mastectomy: No - Anesthesia Hx Anesthesia: Yes Hx Anesthesia Reactions: No (UNK) Hx Malignant Hyperthermia: No (UNK) - Suicidal Assessment Feels Threatened In Home Enviroment: No Family/Social History - Physician Review Nursing Documentation Reviewed: Yes Family/Social History: No Known Family HX Smoking Status: Never Smoked Hx Alcohol Use: Yes (OCCASIONALLY) Hx Substance Use: No Hx Substance Use Treatment: No Allergies/Home Meds Allergies/Adverse Reactions: Allergies No Known Allergies Allergy (Verified 03/17/18 21:43) Home Medications: Home Meds Medication Instructions Recorded Confirmed Midodrine [Proamatine] 5 mg PO BID 06/18/17 03/17/18 Review of Systems - Physician Review All systems were reviewed & negative as marked: Yes - Review of Systems Constitutional: absent: Fevers Respiratory: absent: SOB, Cough Cardiovascular: absent: Chest Pain Gastrointestinal: Abdominal Pain, Constipation, Vomiting. absent: Diarrhea, Hematochezia, Hematemesis Genitourinary Male: absent: Dysuria, Urinary Output Changes Musculoskeletal: Arthralgias (left upper arm pain). absent: Back Pain, Neck Pain Skin: absent: Rash Neurological: absent: Headache, Dizziness Physical Exam - Physical Exam Narrative Physical Exam (Text): 08/05/18 19:42 Gen: VS reviewed, alert, well developed, well nourished, nontoxic, mild distress Eye: EOMI, PERRL Neck: no JVD, supple, no adenopathy CV: regular rate, regular rhythm, no rubs,no murmur, S1, S2 Pulm: no distress, clear to auscultation, no wheeze, no rhonchi, breath sounds equal, no rales Abd: soft, diffuse lower abdominal tenderness, some guarding, no rebound, no rigidity Ext: no edema, left hand wrapped in jasbir bandage, left foot in walking boot. Skin: good color, no rash, no cyanosis Psych: responds appropriately to questions, normal affect Neuro: oriented x3, CN2-12 intact grossly, motor intact, sensation intact Vital Signs Reviewed: Yes Vital Signs Temp Pulse Resp BP Pulse Ox 08/05/18 18:51 98.2 F 94 H 18 106/70 98 Temperature: Afebrile Blood Pressure: Normal Pulse: Regular Respiratory Rate: Normal Appearance: Positive for: Well-Appearing, Non-Toxic, Comfortable Pain Distress: None Mental Status: Positive for: Alert and Oriented X 3 Finger Stick Blood Glucose: 319 Medical Decision Making ED Course and Treatment: 08/05/18 19:43 Impression: Patient presents with mid abdominal pain, will workup for including but not limited to: pancreatitis, possible but unlikely appendicitis, constipation, umbilical hernia, diverticulitis Differential Diagnosis included but are not limited to: -- Pancreatitis Unlikely: -- Appendicitis -- Constipation -- Umbilical hernia -- Diverticulitis Plan: -- CT of Abdomen/Pelvis -- EKG -- Labs -- IV Fluids -- X-ray of left humerus -- Reassess and disposition Prior Visits: Notes and results from previous visits were reviewed. Progress Notes: - RAD Interpretation Narrative RAD Interpretations (Text): 08/06/18 00:54 CT of Abdomen/Pelvis reviewed by radiologist, shows cystitis. 08/06/18 01:43 humerus xr my read: no fx or dislocation Radiology Orders: 08/05/18 19:28 ABDOMEN & PELVIS [ABD PELVIS PO & IV CONTRAST] [CT] Stat Greens Or Grounds Superintendent: Radiologist - EKG Interpretation EKG Interpretation (Text): 08/05/18 19:50 1941: nsr at 93 bpm, nml qrs, nml axis, no acute sttw abn Interpreted by ED Physician: Yes - Medication Orders Current Medication Orders: Sodium Chloride (Sodium Chloride 0.9%) 1,000 mls @ 999 mls/hr IV .Q1H1M ST[facility] Stop: 08/05/18 20:29 - Scribe Statement The provider has reviewed the documentation as recorded by the Scribe Lars Bagley. All medical record entries made by the Scribe were at my direction and personally dictated by me. I have reviewed the chart and agree that the record accurately reflects my personal performance of the history, physical exam, medical decision making, and the department course for this patient. I have also personally directed, reviewed, and agree with the discharge instructions and disposition. Disposition/Present on Arrival - Present on Arrival Any Indicators Present on Arrival: No History of DVT/PE: No History of Uncontrolled Diabetes: No Urinary Catheter: No History of Decub. Ulcer: No History Surgical Site Infection Following: None - Disposition Have Diagnosis and Disposition been Completed?: Yes Diagnosis: Constipation, Abdominal pain Disposition: HOME/ ROUTINE Disposition Time: :43 Patient Plan: Discharge Condition: STABLE Discharge Instructions (ExitCare): Constipation, Adult (DC), Acute Abdomen (Belly Pain), Adult (DC) Additional Instructions: Return for any new or worsening symptoms. Follow up with the orthopedic surgeon for the arm pain- call tomorrow to make an appointment. Follow up with project manager senior for the constipation and abdominal pain. REGINALD KUNZ, thank you for letting us take care of you today. Your provider was Dr. Yovani Richardson and you were treated for abdominal pain and left arm pain. The emergency medical care you received today was directed at your acute symptoms. If you were prescribed any medication, please fill it and take as directed. It may take several days for your symptoms to resolve. Return to the Emergency Department if your symptoms worsen, do not improve, or if you have any other problems. Please contact your doctor or call one of the physicians/clinics you have been referred to that are listed on the Patient Visit Information form that is included in your discharge packet. Bring any paperwork you were given at discharge with you along with any medications you are taking to your follow up visit. Our treatment cannot replace ongoing medical care by a primary care provider outside of the emergency department. Thank you for allowing the [facility] team to be part of your care today. If you had an X-Ray or CT scan: A Radiologist will review the ED reading if any change in treatment is needed we will contact you. If you had a blood, urine, or wound culture: It will take several days for the results, if any change in treatment is needed we will contact you. If you had an STI test: It will take 48 hours for the results. Please call after 1 week if you have not heard back. Prescriptions: Magnesium Citrate [Citrate of Mag] 300 ml PO DAILY 1 Days bottle Sennosides/Docusate Sodium [Dok Plus Tablet] 2 each PO BID PRN 7 Days #14 tablet PRN Reason: Constipation Referrals: Lorenzo Lopez MD [Primary Care Provider] - Follow up with primary Forms: [employer] (Turkmen)
[2018-08-05 19:57] LABS: BASO # 0.02 K/mm3 (0.0-2.0); BASO % 0.2 % (0.0-3.0); EOS # 0.1 (0.0-0.7); EOS % 1.1 % (1.5-5.0); GRAN # 5.89 (1.4-6.5); GRAN % 70.9 % (50.0-68.0); LYMPH # 1.6 (1.2-3.4); LYMPH % 18.9 % (22.0-35.0); MEAN CELL VOLUME 89.8 fl (80.0-105.0); MEAN CORPUSCULAR HEMOGLOBIN 31.3 pg (25.0-35.0); MEAN CORPUSCULAR HGB CONC 34.8 g/dl (31.0-37.0); MEAN PLATELET VOLUME 9.7 fl (7.0-11.0); MONO # 0.7 (0.1-0.6); MONO % 8.9 % (1.0-6.0); RBC 3.84 10^6/uL (3.5-6.1); WHITE BLOOD COUNT 8.3 10^3/uL (4.5-11.0)
[2018-08-05 20:05] LABS: ALB/GLOB RATIO 1.1 (1.1-1.8); ALBUMIN 4.3 g/dL (3.0-4.8); ALT/SGPT 23 U/L (7-56); AST/SGOT 23 U/L (17-59); BLOOD UREA NITROGEN 20 mg/dL (7-21); CALCIUM 8.9 mg/dL (8.4-10.5); GFR NON-AFRICAN AMERICAN > 60
[2018-08-05 20:14] LABS: BARBITURATES, UR NEGATIVE (NEGATIVE); BENZODIAZEPINES, UR NEGATIVE (NEGATIVE); OPIATES, UR NEGATIVE (NEGATIVE); PHENCYCLIDINE, UR NEGATIVE (NEGATIVE)
[2018-08-05] MEDS ORDERED: Iohexol 240 (50 ml) ONE (20:35)
[2018-08-05] MEDS ORDERED: Iohexol 350 MG/100 ML VIAL ONE (20:40)
[2018-08-06 01:05] LABS: PH,URINE 6.5 (4.7-8.0); URINE BILIRUBIN NEGATIVE (NEGATIVE); URINE BLOOD NEGATIVE (NEGATIVE); URINE GLUCOSE (UA) >=1000 mg/dL (NEGATIVE); URINE LEUKOCYTE ESTERASE NEGATIVE Leu/uL (NEGATIVE); URINE PROTEIN NEGATIVE mg/dL (<30 mg/dL)
[2018-08-06 01:21] LABS: URINE APPEARANCE CLEAR (CLEAR); URINE COLOR YELLOW (YELLOW)
[2018-08-06 03:52] VITALS: BP 127/87; PULSE 1; RESP 18; TEMP 97.4; O2SAT 97
--- NOTE | 2018-08-06 09:33 | CT ---
Date of service: 08/05/2018 PROCEDURE: CT Abdomen and Pelvis with contrast HISTORY: mid abdominal pain COMPARISON: Abdomen and pelvis CT without contrast 03/16/2016. TECHNIQUE: Following oral and intravenous contrast administration, a CT examination of the abdomen and pelvis performed from the domes of the diaphragms to the symphysis pubis with reformatted datasets provided not only axial but also sagittal and coronal series. Coronal and sagittal reformats were generated. Contrast dose: Omnipaque 350, 100 cc Radiation dose: Total exam DLP = 281.69 mGy-cm. This CT exam was performed using one or more of the following dose reduction techniques: Automated exposure control, adjustment of the mA and/or kV according to patient size, and/or use of iterative reconstruction technique. FINDINGS: LOWER THORAX: Stable 5 mm nodule seen subpleural, noncalcified at the lateral portion right major fissure series 5 image 7 a 3 mm noncalcified nodule also subpleural in image 19. LIVER: Unremarkable. No gross lesion or ductal dilatation. GALLBLADDER AND BILE DUCTS: Unremarkable. PANCREAS: Unremarkable. No gross lesion or ductal dilatation. SPLEEN: Unremarkable. ADRENALS: Unremarkable. No mass. KIDNEYS AND URETERS: Unremarkable. No hydronephrosis. No solid mass. VASCULATURE: Unremarkable. No aortic aneurysm. No aortic atherosclerotic calcification or mural plaque present. BOWEL: Moderate fecal loading seen scattered throughout the large bowel. No small or large bowel obstruction. No gross mural thickening. No perienteric or pericolic reactive changes appreciated throughout. No colonic diverticular changes are identified. APPENDIX: Appendix not identified. No CT pattern to suggest appendicitis nevertheless. PERITONEUM: Unremarkable. No free fluid. No free air. LYMPH NODES: Unremarkable. No enlarged lymph nodes. BLADDER: Urinary bladder is not fully distended however mural thickening is diffusely suspected. Consider potential cystitis or outlet obstruction. Clinically correlate further. REPRODUCTIVE: Mild prostate gland enlargement. BONES: No acute fracture. OTHER FINDINGS: None. IMPRESSION: 1. No definitive acute abdominal or pelvic findings. 2. Mildly enlarged prostate gland. 3. Two stable subcentimeter subpleural nodules incidentally noted at the right lower lobe as discussed above, unchanged compared to lung base sections prior abdomen and pelvis CT 03/16/2016. Preliminary report provided by [employer], 08/06/2018 12:25 a.m..
--- NOTE | 2018-08-06 15:24 | RAD ---
PROCEDURE: Radiographs of the left humerus. HISTORY: pain COMPARISON: None. FINDINGS: BONES: No acute cardiopulmonary disease appreciated. SOFT TISSUES: No suspicious soft tissue findings. Apparent intravenous catheter suggested at the left antecubital fossa. OTHER FINDINGS: None. IMPRESSION: Unremarkable radiographs of left humerus.
--- NOTE | 2018-08-07 00:07 | CARD ---
APPROVED REPORT Date of service: 08/05/2018 EKG Measurement Heart [id number] <Conclusion> Normal sinus rhythm Normal ECG
== END 2018-08-06 02:15 | disposition home or self-care (01) ==
LOC: ED 18:24
DX: K59.00 Constipation, unspecified (principal); R10.9 Unspecified abdominal pain
CPT/HCPCS: 73060; 74177; 80053; 81003; 82948; 85025; 87086; 93005; 96360; 99284; G0480; J7030; Q9966; Q9967

== ENCOUNTER 2018-08-11 14:56 | Inpatient (IN) | payer MEDICARE, OTHER ==
--- NOTE | 2018-08-11 15:29 | ED PDOC ---
Arrival/HPI - General Historian: Patient - History of Present Illness Narrative History of Present Illness (Text): 08/11/18 15:23 48 y/o male, pmh including Type 1 IDDM/osteomylitis of left foot and seeing Dr. Christensen, da, c/o nausea/vomiting and abdominal pain x 1 week. Pt. stated that he has been having nausea/vomiting for 1 weeks, associated with epigastric pain, no fever or chills, FS 330 in the ER, no night sweat, no rash, no numbness or tingling, no palpitation, no change in vision, no night sweat, no other medical or psychological complaints. Past Medical History - Provider Review Nursing Documentation Reviewed: Yes - Infectious Disease Hx of Infectious Diseases: None - Tetanus Immunization Tetanus Immunization: Unknown - Past Medical History Past Medical History: Non-Contributing - Cardiac Hx Pacemaker: No - Pulmonary Hx Respiratory Disorders: No - Neurological Hx Neurological Disorder: Yes Hx Dizziness: Yes Hx Transient Ischemic Attacks (TIA): Yes - HEENT Hx HEENT Disorder: No - Renal Hx Renal Disorder: No - Endocrine/Metabolic Hx Diabetes Mellitus Type 1: Yes (poorly controlled with frequent syncopal episodes) - Hematological/Oncological Hx Cancer: No - Integumentary Hx Dermatological Disorder: Yes (flores to bilateral heels) Other/Comment: heels ulcer - Musculoskeletal/Rheumatological Hx Musculoskeletal Disorders: Yes (RIGHT SHOULDER ROTATOR CUFF [id number]) Hx Falls: Yes Hx Fractures: Yes (LEFT ANKLE) Hx Unsteady Gait: Yes (CRUTCHES,SPECIAL SHOES) Other/Comment: ARTIFICIAL JAW-PHYSICAL ALERCATION,BROKEN NOSE,HAD SX. - Gastrointestinal Hx Gastrointestinal Disorders: No - Genitourinary/Gynecological Hx Genitourinary Disorders: No - Psychiatric Hx Psychophysiologic Disorder: No Hx Substance Use: No - Past Surgical History Past Surgical History: Non-Contributing - Surgical History Hx Mastectomy: No - Anesthesia Hx Anesthesia: Yes Hx Anesthesia Reactions: No (UNK) Hx Malignant Hyperthermia: No (UNK) - Suicidal Assessment Feels Threatened In Home Enviroment: No Family/Social History - Physician Review Nursing Documentation Reviewed: Yes Family/Social History: Unknown Family HX Smoking Status: Never Smoked Hx Alcohol Use: Yes (OCCASIONALLY) Hx Substance Use: No Hx Substance Use Treatment: No Allergies/Home Meds Allergies/Adverse Reactions: Allergies No Known Allergies Allergy (Verified 03/17/18 21:43) Home Medications: Home Meds Medication Instructions Recorded Confirmed Midodrine [Proamatine] 5 mg PO BID 06/18/17 03/17/18 Review of Systems - Review of Systems Constitutional: Fatigue. absent: Fevers Eyes: absent: Vision Changes ENT: absent: Hearing Changes Respiratory: absent: SOB, Cough Cardiovascular: absent: Chest Pain Gastrointestinal: Abdominal Pain, Nausea, Vomiting. absent: Diarrhea Musculoskeletal: absent: Arthralgias, Back Pain Skin: absent: Rash, Pruritis Neurological: absent: Headache Psychiatric: absent: Anxiety, Depression, Suicidal Ideation Physical Exam Vital Signs Reviewed: Yes Vital Signs Temp Pulse Resp BP Pulse Ox 08/11/18 15:18 98.7 F 108 H 18 135/71 98 Temperature: Afebrile Blood Pressure: Normal Pulse: Tachycardic Respiratory Rate: Normal Appearance: Positive for: Ill-Appearing Pain Distress: Mild Mental Status: Positive for: Alert and Oriented X 3 Finger Stick Blood Glucose: 330 - Systems Exam Head: Present: Atraumatic, Normocephalic Pupils: Present: PERRL Extroacular Muscles: Present: EOMI Conjunctiva: Present: Normal Mouth: Present: Moist Mucous Membranes Neck: Present: Normal Range of Motion Respiratory/Chest: Present: Clear to Auscultation, Good Air Exchange. No: Respiratory Distress, Accessory Muscle Use Cardiovascular: Present: Regular Rate and Rhythm, Normal S1, S2. No: Murmurs Abdomen: Present: Tenderness (+epigastric tenderness, negative ochoa signs. ), Normal Bowel Sounds. No: Distention, Peritoneal Signs, Rebound, Guarding, McBurney's Point Tender, Scars Back: Present: Normal Inspection Upper Extremity: Present: Normal Inspection. No: Cyanosis, Edema Lower Extremity: Present: Normal Inspection. No: Edema Neurological: Present: GCS=15, CN II-XII Intact, Speech Normal, Motor Func Grossly Intact, Gait Normal, Memory Normal Skin: Present: Warm, Dry, Normal Color. No: Rashes Psychiatric: Present: Alert, Oriented x 3, Normal Insight, Normal Concentration Medical Decision Making ED Course and Treatment: 08/11/18 15:32 -labs -abdominal sonogram -IVF/pepcid/reglan -cardiac monitor -Observe and reassess 08/11/18 17:58 -EKG: Sinus Tachycardia @ 108 BPM, no ST elevation or depression, no T wave inversion. -Chest xray: No active disease. -Abdominal sonogram No acute findings related to/ accounting for the clinical presentation. -Labs show no acute findings except Na 130 (corrected glucose sugar Na is 134- 136), Glucose 366 (IVF 2L ordered), Gap 22 (Reglan and IVF ordered) -Lipase within normal limit -Magnesium within normal limit -VBG: PH 7.45, CO2 32, HCO3 22 -UA ordered and no sample. -Pt. stopped nausea/vomiting, sleeping, fatigue, seen in the ER about several days ago and fail the outpatient treatment, will admit for hydration. 08/11/18 18:32 -FS 320, Insulin 6 units SC ordered. -I discussed with the hospitalist Dr. Chew, discussed about the case/labs/radiology results, agreed to admit the patient for hydration and follow up the care for patient plus the UA result. 08/11/18 19:27 -UA show no UTI. - Lab Interpretations Lab Results: Lab Results 08/11/18 15:16: POC Glucose (mg/dL) 330 H - RAD Interpretation Radiology Orders: -CHEST xray Date of service: 08/11/2018 HISTORY: vomiting COMPARISON: No prior. FINDINGS: LUNGS: No active pulmonary disease. PLEURA: No significant pleural effusion identified, no pneumothorax apparent. CARDIOVASCULAR: No aortic atherosclerotic calcification present. Normal cardiac size. No pulmonary vascular congestion. OSSEOUS STRUCTURES: No significant abnormalities. VISUALIZED UPPER ABDOMEN: Normal. OTHER FINDINGS: None. IMPRESSION: No active disease. Abdominal sonogram: Date of service: 08/11/2018 HISTORY: vomiting and epigastric pain COMPARISON: 03/17/2016, abdominal ultrasound TECHNIQUE: Sonographic evaluation of the abdomen. FINDINGS: LIVER: Measures 13.4 cm. Hepatopedal blood flow. Fatty infiltration manifest ultrasonographically as increased echogenicity of the liver parenchyma. No mass. No intrahepatic bile duct dilatation. GALLBLADDER: Unremarkable. No gallstones. COMMON BILE DUCT: Measures 6.6 mm. No stones. No dilatation. PANCREAS: Unremarkable as visualized. No mass. No ductal dilatation. RIGHT KIDNEY: Measures 4.9 x 11.5cm. Normal echogenicity. No calculus, mass, or hydronephrosis. LEFT KIDNEY: Measures 6.5 x 11.0cm. Normal echogenicity. No calculus, mass, or hy dronephrosis. SPLEEN: Normal in size and contour. No mass. AORTA: No aneurysmal dilatation. IVC: Unremarkable. OTHER FINDINGS: None. IMPRESSION: No acute findings related to/ accounting for the clinical presentation. Additional benign and/or incidental findings described above. No significant interval change compared to the prior examination(s). Flight Operation Coordinator: Radiologist - PA / MATRIX SUPERVISOR / Resident Statement MD/DO has reviewed & agrees with the documentation as recorded. Disposition/Present on Arrival - Present on Arrival Any Indicators Present on Arrival: No History of DVT/PE: No History of Uncontrolled Diabetes: No Urinary Catheter: No History of Decub. Ulcer: No History Surgical Site Infection Following: None - Disposition Have Diagnosis and Disposition been Completed?: Yes Diagnosis: Intractable nausea and vomiting, Hyperglycemia without ketosis, Failure of outpatient treatment, Gastroparesis due to DM Disposition: HOSPITALIZED Disposition Time: 18:02 Patient Plan: Admission, Observation Patient Problems: Current Active Problems Problem Status Onset Intractable nausea and vomiting Acute Hyperglycemia without ketosis Acute Failure of outpatient treatment Acute Gastroparesis due to DM Acute Condition: STABLE
[2018-08-11 15:43] VITALS: BMI 21.2
[2018-08-11] MEDS ORDERED: Sodium Chloride 0.9% 1,000 ML IV STA ×2 (15:43→17:50)
[2018-08-11 15:51] LABS: BASO # 0.01 K/mm3 (0.0-2.0); BASO % 0.1 % (0.0-3.0); GRAN # 6.42 (1.4-6.5); GRAN % 84.5 % (50.0-68.0); HEMOGLOBIN 12.3 g/dL (14.0-18.0); LYMPH # 0.8 (1.2-3.4); LYMPH % 9.9 % (22.0-35.0); MEAN CELL VOLUME 88.3 fl (80.0-105.0); MEAN CORPUSCULAR HEMOGLOBIN 31.3 pg (25.0-35.0); MEAN CORPUSCULAR HGB CONC 35.4 g/dl (31.0-37.0); MEAN PLATELET VOLUME 9.8 fl (7.0-11.0); MONO # 0.4 (0.1-0.6); MONO % 5.5 % (1.0-6.0); RBC 3.93 10^6/uL (3.5-6.1); RED CELL DISTRIBUTION WIDTH 12.4 % (11.5-14.5); WHITE BLOOD COUNT 7.6 10^3/uL (4.5-11.0)
[2018-08-11 15:52] LABS: VENOUS BLOOD GAS PO2 65 mm/Hg (30-55); VENOUS BLOOD PH 7.45 (7.32-7.43)
[2018-08-11 16:15] LABS: ALB/GLOB RATIO 1.1 (1.1-1.8); ALBUMIN 4.4 g/dL (3.0-4.8); ALT/SGPT 18 U/L (7-56); AST/SGOT 20 U/L (17-59); BLOOD UREA NITROGEN 21 mg/dL (7-21); CALCIUM 9.1 mg/dL (8.4-10.5); GFR NON-AFRICAN AMERICAN > 60; LIPASE 23 U/L (23-300)
[2018-08-11 16:17] LABS: TROPONIN I < 0.01 ng/mL
--- NOTE | 2018-08-11 16:49 | RAD ---
Date of service: 08/11/2018 HISTORY: vomiting COMPARISON: No prior. FINDINGS: LUNGS: No active pulmonary disease. PLEURA: No significant pleural effusion identified, no pneumothorax apparent. CARDIOVASCULAR: No aortic atherosclerotic calcification present. Normal cardiac size. No pulmonary vascular congestion. OSSEOUS STRUCTURES: No significant abnormalities. VISUALIZED UPPER ABDOMEN: Normal. OTHER FINDINGS: None. IMPRESSION: No active disease.
--- NOTE | 2018-08-11 18:16 | US ---
Date of service: 08/11/2018 HISTORY: vomiting and epigastric pain COMPARISON: 03/17/2016, abdominal ultrasound TECHNIQUE: Sonographic evaluation of the abdomen. FINDINGS: LIVER: Measures 13.4 cm. Hepatopedal blood flow. Fatty infiltration manifest ultrasonographically as increased echogenicity of the liver parenchyma. No mass. No intrahepatic bile duct dilatation. GALLBLADDER: Unremarkable. No gallstones. COMMON BILE DUCT: Measures 6.6 mm. No stones. No dilatation. PANCREAS: Unremarkable as visualized. No mass. No ductal dilatation. RIGHT KIDNEY: Measures 4.9 x 11.5cm. Normal echogenicity. No calculus, mass, or hydronephrosis. LEFT KIDNEY: Measures 6.5 x 11.0cm. Normal echogenicity. No calculus, mass, or hydronephrosis. SPLEEN: Normal in size and contour. No mass. AORTA: No aneurysmal dilatation. IVC: Unremarkable. OTHER FINDINGS: None. IMPRESSION: No acute findings related to/ accounting for the clinical presentation. Additional benign and/or incidental findings described above. No significant interval change compared to the prior examination(s).
[2018-08-11] MEDS ORDERED: Insulin Regular 1 UNITS/0.01 ML ML SC STA (18:32)
[2018-08-11] MEDS ORDERED: Sodium Chloride 0.9% 1,000 ML IV SCH (18:45)
[2018-08-11 19:05] LABS: URINE BILIRUBIN NEGATIVE (NEGATIVE); URINE BLOOD TRACE-LYSED (NEGATIVE); URINE GLUCOSE (UA) >=1000 mg/dL (NEGATIVE); URINE LEUKOCYTE ESTERASE NEGATIVE Leu/uL (NEGATIVE); URINE PROTEIN TRACE mg/dL (<30 mg/dL); URINE UROBILINOGEN 0.2 E.U./dL (<1 E.U./dL)
[2018-08-11 19:06] LABS: URINE APPEARANCE CLEAR (CLEAR); URINE COLOR LIGHT YELLOW (YELLOW)
[2018-08-11 19:18] LABS: URINE RBC 0 - 2 /hpf (0-2); URINE WBC NEGATIVE /hpf (0-6)
--- NOTE | 2018-08-11 19:55 | CP.PCM.HP ---
History of Present Illness - History of Present Illness History of Present Illness: Beverley Cox, PGY1 Hospital H&P This is a 48 year old male with PMH of DM1 on insulin pump, osteomyelitis of the left foot, TIA, B/L LE DVT and enciso's palsy presenting to the ED for one week history of abdominal pain and one day history of non bloody vomiting. Patient states he abdominal pain started on juan pablo, located in the epigastric region, rated 10/10 at worst, radiates B/L in the abdomen, sharp, intermittent and denies alleviating/exacerbating factors. He has tried milk of magnesia for the pain with no improvement. Today, he admits to several episodes of non bloody vomiting. He denies every having similar symptoms in past. Last BM was yesterday and regular. He says his insulin pump has no issues. He was treated on 4 weeks ancef after being diagnosed with osteomyelitis in March 2018. He denies CP, SOB, fevers, headaches, dizziness, back pain, urinary complains, chills, diarrhea, constipation, numbness, tingling, swelling, recent travel, sickness, trauma and lifestyle change including diet, medications and weight. 12 point ROS noted here, otherwise unremarkable. PMD: Dr. Lopez PMH: DM1 on insulin pump, osteomyelitis of the left foot, TIA, B/L LE DVT and enciso's palsy SH: denies drinking, smoking and drugs Sx: right shoulder rotator cuff in 2006 FH: denies All: NKDA Meds: insulin pump Present on Admission - Present on Admission Any Indicators Present on Admission: Yes History of DVT/PE: Yes Past Patient History - Infectious Disease Hx of Infectious Diseases: None - Tetanus Immunizations Tetanus Immunization: Unknown - Past Medical History & Family History Past Medical History?: Yes - Past Social History Smoking Status: Never Smoked - CARDIAC Hx Pacemaker: No - PULMONARY Hx Respiratory Disorders: No - NEUROLOGICAL Hx Neurological Disorder: Yes Hx Dizziness: Yes Hx Transient Ischemic Attacks (TIA): Yes - HEENT Hx HEENT Problems: No - RENAL Hx Chronic Kidney Disease: No - ENDOCRINE/METABOLIC Hx Diabetes Mellitus Type 1: Yes (poorly controlled with frequent syncopal episodes) - HEMATOLOGICAL/ONCOLOGICAL Hx Cancer: No - INTEGUMENTARY Hx Dermatological Problems: Yes (flores to bilateral heels) Other/Comment: heels ulcer - MUSCULOSKELETAL/RHEUMATOLOGICAL Hx Musculoskeletal Disorders: Yes (RIGHT SHOULDER ROTATOR CUFF [id number]) Hx Falls: Yes Hx Fractures: Yes (LEFT ANKLE) Hx Unsteady Gait: Yes (CRUTCHES,SPECIAL SHOES) Other/Comment: ARTIFICIAL JAW-PHYSICAL ALERCATION,BROKEN NOSE,HAD SX. - GASTROINTESTINAL Hx Gastrointestinal Disorders: No - GENITOURINARY/GYNECOLOGICAL Hx Genitourinary Disorders: No - PSYCHIATRIC Hx Psychophysiologic Disorder: No Hx Substance Use: No - SURGICAL HISTORY Hx Mastectomy: No - ANESTHESIA Hx Anesthesia: Yes Hx Anesthesia Reactions: No (UNK) Hx Malignant Hyperthermia: No (UNK) Meds Allergies/Adverse Reactions: Allergies Allergy/AdvReac Type Severity Reaction Status Date / Time No Known Allergies Allergy Verified 03/17/18 21:43 Physical Exam - Constitutional Appears: No Acute Distress - Head Exam Head Exam: ATRAUMATIC, NORMAL INSPECTION - Eye Exam Eye Exam: EOMI Pupil Exam: PERRL - ENT Exam ENT Exam: Mucous Membranes Dry - Neck Exam Neck exam: Positive for: Normal Inspection - Respiratory Exam Respiratory Exam: Clear to Auscultation Bilateral, NORMAL BREATHING PATTERN. absent: Accessory Muscle Use, Wheezes, Respiratory Distress - Cardiovascular Exam Cardiovascular Exam: Tachycardia, +S1, +S2 - GI/Abdominal Exam GI & Abdominal Exam: Normal Bowel Sounds, Soft. absent: Distended, Firm, Guarding Additional comments: diffuse tenderness noted throughout abdomen, ochoa sign is positive. Rovsing/obturator signs are negative - Extremities Exam Extremities exam: Positive for: normal inspection, pedal pulses present. Negative for: calf tenderness, tenderness Additional comments: Left foot in case from previous osteomyelitis - Back Exam Back exam: NORMAL INSPECTION. absent: CVA tenderness (L), CVA tenderness (R) - Neurological Exam Neurological exam: Alert, CN II-XII Intact, Oriented x3 - Skin Skin Exam: Normal Color, Warm Results - Vital Signs Recent Vital Signs: Last Vital Signs Temp 98.5 F 08/11/18 19:22 Pulse 86 08/11/18 19:22 Resp 18 08/11/18 19:22 BP 125/61 08/11/18 19:22 Pulse Ox 98 08/11/18 19:22 - Labs Result Diagrams: 08/11/18 15:47 08/11/18 15:47 Labs: Laboratory Results - last 24 hr 08/11/18 08/11/18 08/11/18 15:16 15:47 15:47 WBC RBC Hgb Hct MCV MCH MCHC RDW Plt Count MPV Gran % Lymph % (Auto) [place] % (Auto) Eos % (Auto) Baso % (Auto) Gran # Lymph # (Auto) [place] # (Auto) Eos # (Auto) Baso # (Auto) pO2 65 H VBG pH 7.45 H VBG pCO2 32.0 L VBG HCO3 22.2 VBG Total CO2 23.2 VBG O2 Sat (Calc) 96.3 H VBG Base Excess -1.0 L VBG Potassium 4.2 Sodium 129.0 L 130 L Chloride 93.0 L 92 L Glucose 386 H Lactate 2.7 H FiO2 21.0 Potassium 4.3 Carbon Dioxide 20 L Anion Gap 22 H BUN 21 Creatinine 0.8 Est GFR ( Amer) > 60 Est GFR (Non-Af Amer) > 60 POC Glucose (mg/dL) 330 H Random Glucose 366 H* D Calcium 9.1 Magnesium 1.7 Total Bilirubin 0.8 AST 20 ALT 18 Alkaline Phosphatase 102 Troponin I < 0.01 Total Protein 8.3 Albumin 4.4 Globulin 3.9 Albumin/Globulin Ratio 1.1 Lipase 23 Venous Blood Potassium 4.2 Urine Color Urine Appearance Urine pH Ur Specific [place] Urine Protein Urine Glucose (UA) Urine Ketones Urine Blood Urine Nitrate Urine Bilirubin Urine Urobilinogen Ur Leukocyte Esterase Urine RBC Urine WBC Ur Epithelial Cells 08/11/18 08/11/18 08/11/18 15:47 18:13 18:53 WBC 7.6 RBC 3.93 Hgb 12.3 L Hct 34.7 L MCV 88.3 MCH 31.3 MCHC 35.4 RDW 12.4 Plt Count 208 MPV 9.8 Gran % 84.5 H Lymph % (Auto) 9.9 L [place] % (Auto) 5.5 Eos % (Auto) 0.0 L Baso % (Auto) 0.1 Gran # 6.42 Lymph # (Auto) 0.8 L [place] # (Auto) 0.4 Eos # (Auto) 0.0 Baso # (Auto) 0.01 pO2 VBG pH VBG pCO2 VBG HCO3 VBG Total CO2 VBG O2 Sat (Calc) VBG Base Excess VBG Potassium Sodium Chloride Glucose Lactate FiO2 Potassium Carbon Dioxide Anion Gap BUN Creatinine Est GFR ( Amer) Est GFR (Non-Af Amer) POC Glucose (mg/dL) 320 H Random Glucose Calcium Magnesium Total Bilirubin AST ALT Alkaline Phosphatase Troponin I Total Protein Albumin Globulin Albumin/Globulin Ratio Lipase Venous Blood Potassium Urine Color Light yellow Urine Appearance Clear Urine pH 6.0 Ur Specific [place] 1.025 Urine Protein Trace H Urine Glucose (UA) >=1000 Urine Ketones >=80 Urine Blood Trace-lysed H Urine Nitrate Negative Urine Bilirubin Negative Urine Urobilinogen 0.2 Ur Leukocyte Esterase Negative Urine RBC 0 - 2 Urine WBC Negative Ur Epithelial Cells None Assessment & Plan - Assessment and Plan (Free Text) Assessment: This is a 48 year old male with PMH of DM1 on insulin pump, osteomyelitis of the left foot, TIA, B/L LE DVT and enciso's palsy presenting to the ED for one week history of abdominal pain and one day history of non bloody vomiting. Plan: Intractable abdominal pain -consider gastroparesis vs DKA vs gastroenteritis vs cholecystitis -Anion gap is 18, UA positive for ketones - repeat BMP pending to evaluate for DKA -will start insulin drip if GAP elevated -CXR is unremarkable -Abd US is unremarkable -Abd xray is pending -EKG shows ST at 108bpm with no ST changes, QTc WNL -lipase WNL -NPO for now, bowel rest with ice chips -NS 100 -can continue with delfina reglan if EKG AM QT ok -zofran prn nausea Hyponatremia -likely pseudo from hyperglyemia -corrected Na is 134 Hx of DM1 -insulin low sliding scale -will escalate if necessary -not currently on insulin pump Hx of osteomyelitis -completed one month ancef previously -monitor for signs of infection Hx of DVT -not on AC, will start lovenox for DVT/PE prevention PPX/Diet -lovenox, pepcid -NPO for now for bowel rest Patient seen and case reviewed with attending, Pat Mcghee
[2018-08-11 20:19] LABS: VENOUS BLOOD GAS BASE EXCESS -1.6 mmol/L (0.0-2.0); VENOUS BLOOD GAS PO2 40 mm/Hg (30-55); VENOUS BLOOD PH 7.44 (7.32-7.43)
[2018-08-11] MEDS: Sodium Chloride 0.9% 1,000 ML IV SCH (21:23)
[2018-08-11] MEDS: Insulin Reg-LOW-Coverage SC SCH (21:34)
[2018-08-11 22:19] LABS: BLOOD UREA NITROGEN 17 mg/dL (7-21); CALCIUM 8.1 mg/dL (8.4-10.5); GFR NON-AFRICAN AMERICAN > 60
[2018-08-12] MEDS: Sodium Chloride 0.9% 1,000 ML IV SCH (05:48)
[2018-08-12 07:01] LABS: BASO # 0.01 K/mm3 (0.0-2.0); BASO % 0.2 % (0.0-3.0); EOS % 0.2 % (1.5-5.0); GRAN # 3.1 (1.4-6.5); GRAN % 61.6 % (50.0-68.0); HEMOGLOBIN 10.6 g/dL (14.0-18.0); LYMPH # 1.2 (1.2-3.4); LYMPH % 24.3 % (22.0-35.0); MEAN CELL VOLUME 89.2 fl (80.0-105.0); MEAN CORPUSCULAR HEMOGLOBIN 30.2 pg (25.0-35.0); MEAN CORPUSCULAR HGB CONC 33.9 g/dl (31.0-37.0); MEAN PLATELET VOLUME 9.7 fl (7.0-11.0); MONO # 0.7 (0.1-0.6); MONO % 13.7 % (1.0-6.0); RBC 3.51 10^6/uL (3.5-6.1); RED CELL DISTRIBUTION WIDTH 12.7 % (11.5-14.5)
[2018-08-12 07:16] LABS: ALBUMIN 3.3 g/dL (3.0-4.8); ALT/SGPT 17 U/L (7-56); AST/SGOT 18 U/L (17-59); BLOOD UREA NITROGEN 15 mg/dL (7-21); CALCIUM 7.9 mg/dL (8.4-10.5); GFR NON-AFRICAN AMERICAN > 60
[2018-08-12] MEDS: Insulin Reg-LOW-Coverage SC SCH ×4 (08:58→21:34)
[2018-08-12] MEDS: Enoxaparin 40 mg Syringe SC SCH (09:55)
--- NOTE | 2018-08-12 10:09 | RAD ---
Date of service: 08/11/2018 HISTORY: assess for fecal impaction COMPARISON: CT scan of the abdomen pelvis dated 08/05/2018. FINDINGS: BOWEL: Enteric contrast seen in the rectum. No obstruction. Rectal stool seen, but not an exorbitant amount. BONES: Normal. OTHER FINDINGS: None. IMPRESSION: No obstruction. No obvious evidence of fecal impaction.
--- NOTE | 2018-08-12 10:34 | CARD ---
APPROVED REPORT Date of service: 08/12/2018 EKG Measurement Heart [id number] <Conclusion> Normal sinus rhythm Normal ECG
--- NOTE | 2018-08-12 10:40 | CARD ---
APPROVED REPORT Date of service: 08/11/2018 EKG Measurement Heart [id number] AR [id number] <Conclusion> Sinus tachycardia Otherwise normal ECG
--- NOTE | 2018-08-12 11:09 | CP.PCM.CON ---
<Issa Vick - Last Filed: 08/12/18 17:12> History of Present Illness - History of Present Illness History of Present Illness: Issa Vick DO. GI consult note for Dr Gonzalez 48 year old male with PMH of DM1 on insulin pump, TIA, B/L LE DVT and enciso's palsy admitted to [facility] for progressive epigastric abdominal pain x1 week. It's sharp, intermittent, 5-6/10 on average but can be 10/10 at worst, not related to food, radiates to the back, no relieving or worsening factors. Pain is ass ociated with severe nausea, vomting x1 yesterday non bloody but bilious, chills, diaphoresis. Patient denied blood per rectum, dark stool, hemetemesis, hematochezia, changes in bowel movement. Patient has uncontrolled DM1 despite being on insulin pump. His BG is labile ranges from 50s-300s within the same day. He admits to early satiety, muscle weakness, polydipsia, GERD symptoms, visual changes and poor wound healing in lower legs. Patient denied NSAID use, recent sick contacts or recent travel. As per charting, patient was admitted in the past for diabetic gastroparesis with intractable abdominal pain, enteritis, osteomyelitis with poor wound healing. Patient denied CP, SOB, cough, palpitations, fever, headache, dizziness, ROS reviewed with pertinent positive as above PMH: as above PSH: denied SH: denied drinking, smoking and drugs Sx: right shoulder rotator cuff repair FH: non contributory All: NKDA Meds: insulin pump Endo: EGD (03/27) at [facility] chronic gastritis, esophagitis. EGD/CSPY done few month ago at [facility] with unequivocal CSPY due to poor prep PMD: Dr. Lopez Past Patient History - Infectious Disease Hx of Infectious Diseases: None - Tetanus Immunizations Tetanus Immunization: Unknown - Past Medical History & Family History Past Medical History?: Yes - Past Social History Smoking Status: Never Smoked - CARDIAC Hx Cardiac Disorders: No - PULMONARY Hx Respiratory Disorders: No - NEUROLOGICAL Hx Neurological Disorder: Yes Hx Dizziness: Yes Hx Transient Ischemic Attacks (TIA): Yes - HEENT Hx HEENT Problems: Yes Other/Comment: Left eye blurry vision - RENAL Hx Chronic Kidney Disease: No - ENDOCRINE/METABOLIC Hx Endocrine Disorders: Yes Hx Diabetes Mellitus Type 1: Yes - HEMATOLOGICAL/ONCOLOGICAL Hx Blood Disorders: No - INTEGUMENTARY Hx Dermatological Problems: No - MUSCULOSKELETAL/RHEUMATOLOGICAL Hx Musculoskeletal Disorders: Yes Hx Falls: No (last fall 3 years ago) Hx Unsteady Gait: Yes - GASTROINTESTINAL Hx Gastrointestinal Disorders: No - GENITOURINARY/GYNECOLOGICAL Hx Genitourinary Disorders: No - PSYCHIATRIC Hx Psychophysiologic Disorder: No - SURGICAL HISTORY Hx Surgeries: Yes Other/Comment: right shoulder rotator cuff sx 2006 - ANESTHESIA Hx Anesthesia: Yes Hx Anesthesia Reactions: No (UNK) Hx Malignant Hyperthermia: No (UNK) Meds Allergies/Adverse Reactions: Allergies Allergy/AdvReac Type Severity Reaction Status Date / Time No Known Allergies Allergy Verified 03/17/18 21:43 - Medications Medications: Current Medications Acetaminophen (Tylenol 325mg Tab) 650 mg PO Q4H PRN PRN Reason: Fever >100.4 F Last Admin: 08/11/18 21:21 Dose: 650 mg Enoxaparin Sodium (Lovenox) 40 mg SC DAILY [facility]; Protocol Last Admin: 08/12/18 09:55 Dose: 40 mg Famotidine (Pepcid) 20 mg IVP DAILY [facility] Last Admin: 08/12/18 09:56 Dose: 20 mg Sodium Chloride (Sodium Chloride 0.9%) 1,000 mls @ 100 mls/hr IV .Q10H [facility] Last Admin: 08/12/18 05:48 Dose: 100 mls/hr Insulin Human Regular (Humulin R Low) 0 units SC ACHS [facility]; Protocol Last Admin: 08/12/18 08:58 Dose: 2 units Ondansetron HCl (Zofran Inj) 4 mg IVP Q6H PRN PRN Reason: Nausea/Vomiting Last Admin: 08/12/18 10:04 Dose: 4 mg Physical Exam - Constitutional Appears: Well, No Acute Distress, Cachectic, Chronically Ill - Head Exam Head Exam: ATRAUMATIC, NORMAL INSPECTION, NORMOCEPHALIC - Eye Exam Eye Exam: EOMI, Normal appearance, PERRL Pupil Exam: NORMAL ACCOMODATION, PERRL - ENT Exam ENT Exam: Mucous Membranes Dry - Neck Exam Neck exam: Positive for: Full Rom, Normal Inspection. Negative for: Tenderness, Thyromegaly - Respiratory Exam Respiratory Exam: Clear to Auscultation Bilateral, NORMAL BREATHING PATTERN. absent: Rhonchi, Wheezes - Cardiovascular Exam Cardiovascular Exam: REGULAR RHYTHM, +S1, +S2. absent: Gallop, Rubs - GI/Abdominal Exam GI & Abdominal Exam: Hypoactive Bowel Sounds, Soft, Tenderness (epigastric ). absent: Distended, Guarding, Organomegaly, Pulsatile Mass - Extremities Exam Additional comments: left LE: ankle edema, erythema, wound on lateral malleolus with dressing applied right LE: no edema, erythema. there is foot wound with dressing applied - Back Exam Back exam: NORMAL INSPECTION - Neurological Exam Neurological exam: Alert, CN II-XII Intact, Motor Sensory Deficit (LE muscle weakness and atrophy. intact sensation), Oriented x3, Reflexes Normal - Psychiatric Exam Psychiatric exam: Normal Affect, Normal Mood - Skin Additional comments: b/l LE wounds with erythema, edema Results - Vital Signs Recent Vital Signs: Last Vital Signs Temp 100.2 F H 08/11/18 21:21 Pulse 86 08/11/18 19:22 Resp 20 08/11/18 22:16 BP 125/61 08/11/18 19:22 Pulse Ox 98 08/11/18 19:22 - Labs Result Diagrams: 08/12/18 06:30 08/12/18 06:30 Labs: Laboratory Results - last 24 hr 08/11/18 08/11/18 08/11/18 15:16 15:47 15:47 WBC RBC Hgb Hct MCV MCH MCHC RDW Plt Count MPV Gran % Lymph % (Auto) Upton % (Auto) Eos % (Auto) Baso % (Auto) Gran # Lymph # (Auto) Upton # (Auto) Eos # (Auto) Baso # (Auto) pO2 65 H VBG pH 7.45 H VBG pCO2 32.0 L VBG HCO3 22.2 VBG Total CO2 23.2 VBG O2 Sat (Calc) 96.3 H VBG Base Excess -1.0 L VBG Potassium 4.2 Sodium 129.0 L 130 L Chloride 93.0 L 92 L Glucose 386 H Lactate 2.7 H FiO2 21.0 Potassium 4.3 Carbon Dioxide 20 L Anion Gap 22 H BUN 21 Creatinine 0.8 Est GFR ( Amer) > 60 Est GFR (Non-Af Amer) > 60 POC Glucose (mg/dL) 330 H Random Glucose 366 H* D Calcium 9.1 Phosphorus Magnesium 1.7 Total Bilirubin 0.8 AST 20 ALT 18 Alkaline Phosphatase 102 Troponin I < 0.01 Total Protein 8.3 Albumin 4.4 Globulin 3.9 Albumin/Globulin Ratio 1.1 Lipase 23 Venous Blood Potassium 4.2 Urine Color Urine Appearance Urine pH Ur Specific Hudson Urine Protein Urine Glucose (UA) Urine Ketones Urine Blood Urine Nitrate Urine Bilirubin Urine Urobilinogen Ur Leukocyte Esterase Urine RBC Urine WBC Ur Epithelial Cells 08/11/18 08/11/18 08/11/18 15:47 18:13 18:53 WBC 7.6 RBC 3.93 Hgb 12.3 L Hct 34.7 L MCV 88.3 MCH 31.3 MCHC 35.4 RDW 12.4 Plt Count 208 MPV 9.8 Gran % 84.5 H Lymph % (Auto) 9.9 L Upton % (Auto) 5.5 Eos % (Auto) 0.0 L Baso % (Auto) 0.1 Gran # 6.42 Lymph # (Auto) 0.8 L Upton # (Auto) 0.4 Eos # (Auto) 0.0 Baso # (Auto) 0.01 pO2 VBG pH VBG pCO2 VBG HCO3 VBG Total CO2 VBG O2 Sat (Calc) VBG Base Excess VBG Potassium Sodium Chloride Glucose Lactate FiO2 Potassium Carbon Dioxide Anion Gap BUN Creatinine Est GFR ( Amer) Est GFR (Non-Af Amer) POC Glucose (mg/dL) 320 H Random Glucose Calcium Phosphorus Magnesium Total Bilirubin AST ALT Alkaline Phosphatase Troponin I Total Protein Albumin Globulin Albumin/Globulin Ratio Lipase Venous Blood Potassium Urine Color Light yellow Urine Appearance Clear Urine pH 6.0 Ur Specific Hudson 1.025 Urine Protein Trace H Urine Glucose (UA) >=1000 Urine Ketones >=80 Urine Blood Trace-lysed H Urine Nitrate Negative Urine Bilirubin Negative Urine Urobilinogen 0.2 Ur Leukocyte Esterase Negative Urine RBC 0 - 2 Urine WBC Negative Ur Epithelial Cells None 08/11/18 08/11/18 08/11/18 20:15 21:34 21:38 WBC RBC Hgb Hct MCV MCH MCHC RDW Plt Count MPV Gran % Lymph % (Auto) Upton % (Auto) Eos % (Auto) Baso % (Auto) Gran # Lymph # (Auto) Upton # (Auto) Eos # (Auto) Baso # (Auto) pO2 40 VBG pH 7.44 H VBG pCO2 32.0 L VBG HCO3 21.7 VBG Total CO2 22.7 VBG O2 Sat (Calc) 80.2 H VBG Base Excess -1.6 L VBG Potassium 3.6 Sodium 131.0 L 131 L Chloride 98.0 98 Glucose 281 H Lactate 1.4 FiO2 21.0 Potassium 4.0 Carbon Dioxide 25 Anion Gap 13 BUN 17 Creatinine 0.7 L Est GFR ( Amer) > 60 Est GFR (Non-Af Amer) > 60 POC Glucose (mg/dL) 202 H Random Glucose 224 H Calcium 8.1 L Phosphorus Magnesium Total Bilirubin AST ALT Alkaline Phosphatase Troponin I Total Protein Albumin Globulin Albumin/Globulin Ratio Lipase Venous Blood Potassium 3.6 Urine Color Urine Appearance Urine pH Ur Specific Hudson Urine Protein Urine Glucose (UA) Urine Ketones Urine Blood Urine Nitrate Urine Bilirubin Urine Urobilinogen Ur Leukocyte Esterase Urine RBC Urine WBC Ur Epithelial Cells 08/12/18 08/12/18 08/12/18 06:30 06:30 07:14 WBC 5.0 D RBC 3.51 Hgb 10.6 L Hct 31.3 L MCV 89.2 MCH 30.2 MCHC 33.9 RDW 12.7 Plt Count 190 MPV 9.7 Gran % 61.6 Lymph % (Auto) 24.3 Upton % (Auto) 13.7 H Eos % (Auto) 0.2 L Baso % (Auto) 0.2 Gran # 3.10 Lymph # (Auto) 1.2 Upton # (Auto) 0.7 H Eos # (Auto) 0.0 Baso # (Auto) 0.01 pO2 VBG pH VBG pCO2 VBG HCO3 VBG Total CO2 VBG O2 Sat (Calc) VBG Base Excess VBG Potassium Sodium 133 Chloride 101 Glucose Lactate FiO2 Potassium 4.1 Carbon Dioxide 25 Anion Gap 11 BUN 15 Creatinine 0.7 L Est GFR ( Amer) > 60 Est GFR (Non-Af Amer) > 60 POC Glucose (mg/dL) 242 H Random Glucose 246 H Calcium 7.9 L Phosphorus 3.2 Magnesium 1.9 Total Bilirubin 0.4 AST 18 ALT 17 Alkaline Phosphatase 66 Troponin I Total Protein 6.6 Albumin 3.3 Globulin 3.3 Albumin/Globulin Ratio 1.0 L Lipase Venous Blood Potassium Urine Color Urine Appearance Urine pH Ur Specific Hudson Urine Protein Urine Glucose (UA) Urine Ketones Urine Blood Urine Nitrate Urine Bilirubin Urine Urobilinogen Ur Leukocyte Esterase Urine RBC Urine WBC Ur Epithelial Cells Assessment & Plan - Assessment and Plan (Free Text) Assessment: 48 year old male with PMH of DM1 on insulin pump, TIA, B/L LE DVT and enciso's palsy admitted to [facility] for progressive epigastric abdominal pain x1 week Plan: Intractable abdominal pain: -likely due gastroparesis in the setting of uncontrolled DM1 -patient is hemodynamically stable, afebrile, no leukocytosis, in NAD -Abd U/S and abd X-Ray did not show any acute events -continue PPI, IVF -started on a short course of reglan. EKG reviewed with normal QTc interval -advance diet to clear liquid -pain control -avoid narcotics -f/u iron studies, vitamin B12, folate levels -patient has multiple EGD consistent with chronic gastritis, esophagitis -patient counseled diabetic diet for better diabetes control, follow soft diet with proper chewing as he is missing some of his teeth -rubberizing mechanic consult -f/u with GI as outpatient -no endoscopic procedures needed at the moment -continue management as per primary team Case reviewed and plan discussed with attending Dr Lisa Vick, <Mca Gonzalez V - Last Filed: 08/12/18 23:40> Meds - Medications Medications: Current Medications Acetaminophen (Tylenol 325mg Tab) 650 mg PO Q4H PRN PRN Reason: Fever >100.4 F Last Admin: 08/11/18 21:21 Dose: 650 mg Enoxaparin Sodium (Lovenox) 40 mg SC DAILY [facility]; Protocol Last Admin: 08/12/18 09:55 Dose: 40 mg Sodium Chloride (Sodium Chloride 0.9%) 1,000 mls @ 100 mls/hr IV .Q10H [facility] Last Admin: 08/12/18 05:48 Dose: 100 mls/hr Insulin Human Regular (Humulin R Low) 0 units SC ACHS [facility]; Protocol Last Admin: 08/12/18 21:34 Dose: Not Given Ketorolac Tromethamine (Toradol) 30 mg IVP Q6H PRN PRN Reason: Pain, moderate (4-7) Last Admin: 08/12/18 12:27 Dose: 30 mg Metoclopramide HCl (Reglan) 5 mg IVP ACHS [facility] Last Admin: 08/12/18 21:30 Dose: 5 mg Ondansetron HCl (Zofran Inj) 4 mg IVP Q6H PRN PRN Reason: Nausea/Vomiting Last Admin: 08/12/18 10:04 Dose: 4 mg Pantoprazole Sodium (Protonix Inj) 40 mg IVP Q12 [facility] Last Admin: 08/12/18 21:30 Dose: 40 mg Results - Vital Signs Recent Vital Signs: Last Vital Signs Temp 97.9 F 08/12/18 16:18 Pulse 87 08/12/18 16:18 Resp 18 08/12/18 16:18 BP 138/91 H 08/12/18 16:18 Pulse Ox 98 08/12/18 16:18 - Labs Result Diagrams: 08/12/18 06:30 08/12/18 06:30 Labs: Laboratory Results - last 24 hr 08/12/18 08/12/18 08/12/18 06:30 06:30 07:14 WBC 5.0 D RBC 3.51 Hgb 10.6 L Hct 31.3 L MCV 89.2 MCH 30.2 MCHC 33.9 RDW 12.7 Plt Count 190 MPV 9.7 Gran % 61.6 Lymph % (Auto) 24.3 Upton % (Auto) 13.7 H Eos % (Auto) 0.2 L Baso % (Auto) 0.2 Gran # 3.10 Lymph # (Auto) 1.2 Upton # (Auto) 0.7 H Eos # (Auto) 0.0 Baso # (Auto) 0.01 Sodium 133 Potassium 4.1 Chloride 101 Carbon Dioxide 25 Anion Gap 11 BUN 15 Creatinine 0.7 L Est GFR ( Amer) > 60 Est GFR (Non-Af Amer) > 60 POC Glucose (mg/dL) 242 H Random Glucose 246 H Calcium 7.9 L Phosphorus 3.2 Magnesium 1.9 Iron TIBC % Saturation Ferritin Total Bilirubin 0.4 AST 18 ALT 17 Alkaline Phosphatase 66 Total Protein 6.6 Albumin 3.3 Globulin 3.3 Albumin/Globulin Ratio 1.0 L Vitamin B12 Folate 08/12/18 08/12/18 08/12/18 10:26 11:11 14:10 WBC RBC Hgb Hct MCV MCH MCHC RDW Plt Count MPV Gran % Lymph % (Auto) Upton % (Auto) Eos % (Auto) Baso % (Auto) Gran # Lymph # (Auto) Upton # (Auto) Eos # (Auto) Baso # (Auto) Sodium Potassium Chloride Carbon Dioxide Anion Gap BUN Creatinine Est GFR ( Amer) Est GFR (Non-Af Amer) POC Glucose (mg/dL) 226 H Random Glucose Calcium Phosphorus Magnesium Iron 18 L TIBC 195 L % Saturation 9 L Ferritin 330.0 Total Bilirubin AST ALT Alkaline Phosphatase Total Protein Albumin Globulin Albumin/Globulin Ratio Vitamin B12 559 Folate > 20.0 08/12/18 08/12/18 16:12 21:07 WBC RBC Hgb Hct MCV MCH MCHC RDW Plt Count MPV Gran % Lymph % (Auto) Upton % (Auto) Eos % (Auto) Baso % (Auto) Gran # Lymph # (Auto) Upton # (Auto) Eos # (Auto) Baso # (Auto) Sodium Potassium Chloride Carbon Dioxide Anion Gap BUN Creatinine Est GFR ( Amer) Est GFR (Non-Af Amer) POC Glucose (mg/dL) 169 H 246 H Random Glucose Calcium Phosphorus Magnesium Iron TIBC % Saturation Ferritin Total Bilirubin AST ALT Alkaline Phosphatase Total Protein Albumin Globulin Albumin/Globulin Ratio Vitamin B12 Folate Attending/Attestation - Attestation I have personally seen and examined this patient.: Yes I have fully participated in the care of the patient.: Yes I have reviewed all pertinent clinical information: Yes Notes (Text): This is an addendum to GI consult report dictated by the Military Analyst. The patient was seen and evaluated earlier. Medical records, lab studies, imagings were reviewed. Last 24 hours events reviewed. Agreed with the above treatment plan as outlined in Military Analyst 's notes with the addition of the following CT scan was reviewed Discussed with the patient and patient's father was at bedside at the request of the patient The likely diagnosis in this patient for epigastric pain should inc ga stroparesis Large amount of gastric food bezoar noticed in the CAT scan we will start the patient on clear liquid diet, PPI and short course of Reglan Risk benefits and alternatives of Reglan short course was explained to the patient who fully understood 08/12/18 23:38
--- NOTE | 2018-08-12 11:35 | CP.PCM.PN ---
<Lilo Staton - Last Filed: 08/12/18 12:57> Subjective - Date & Time of Evaluation Date of Evaluation: 08/12/18 Time of Evaluation: 07:00 - Subjective Subjective: Medicine Progress Note for David Arana PGY3 Patient seen and examined at bedside. There were no acute overnight events as per nursing staff. Patient reports having diffuse abdominal pain with nausea. He last vomited last night and his last BM was Saturday which was small. He is passing gas. Patient denies chest pain, shortness of breath, diarrhea, numbness/tingling, dysuria or hematuria. Patient does report subjective fever /chills however temperature has been within normal limits. Objective - Vital Signs/Intake and Output Vital Signs (last 24 hours): Temp Pulse Resp BP Pulse Ox 100.2 F H 86 20 125/61 98 08/11/18 21:21 08/11/18 19:22 08/11/18 22:16 08/11/18 19:22 08/11/18 19:22 Intake and Output: 08/12/18 08/12/18 06:59 18:59 Intake Total 1100 Output Total 400 Balance 700 - Medications Medications: Current Medications Acetaminophen (Tylenol 325mg Tab) 650 mg PO Q4H PRN PRN Reason: Fever >100.4 F Last Admin: 08/11/18 21:21 Dose: 650 mg Enoxaparin Sodium (Lovenox) 40 mg SC DAILY [facility]; Protocol Last Admin: 08/12/18 09:55 Dose: 40 mg Famotidine (Pepcid) 20 mg IVP DAILY [facility] Last Admin: 08/12/18 09:56 Dose: 20 mg Sodium Chloride (Sodium Chloride 0.9%) 1,000 mls @ 100 mls/hr IV .Q10H [facility] Last Admin: 08/12/18 05:48 Dose: 100 mls/hr Insulin Human Regular (Humulin R Low) 0 units SC ACHS [facility]; Protocol Last Admin: 08/12/18 08:58 Dose: 2 units Ondansetron HCl (Zofran Inj) 4 mg IVP Q6H PRN PRN Reason: Nausea/Vomiting Last Admin: 08/12/18 10:04 Dose: 4 mg - Labs Labs: 08/12/18 06:30 08/12/18 06:30 - Constitutional Appears: No Acute Distress - Head Exam Head Exam: ATRAUMATIC, NORMAL INSPECTION, NORMOCEPHALIC - Eye Exam Eye Exam: Normal appearance, PERRL Pupil Exam: NORMAL ACCOMODATION, PERRL - ENT Exam ENT Exam: Mucous Membranes Moist - Neck Exam Neck Exam: Full ROM - Respiratory Exam Respiratory Exam: Clear to Ausculation Bilateral, NORMAL BREATHING PATTERN. absent: Rales, Rhonchi, Wheezes - Cardiovascular Exam Cardiovascular Exam: REGULAR RHYTHM, +S1, +S2. absent: Gallop, Rubs, Murmur - GI/Abdominal Exam GI & Abdominal Exam: Soft, Tenderness (diffuse), Hypoactive Bowel Sounds. 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 Abdominal pain - secondary to gastroparesis v. gastroenteritis - GI consulted - NPO for bowel rest- will advance diet as tolerated - Abd XR no evidence of bowel obstruction or fecal impaction and Abd US showed no acute findings - NS@100 - Zofran prn nausea, Toradol prn pain (total 4 doses) - Endoscopy in 2016 showed esophagitis and gastritis - Qtc mildly prolonged- will hold reglan for now. 2. DM-I - Insulin pump removed and is at home - Insulin sliding scale - A1c in Mar 2018 was 9.4 Will recheck - No evidence of DKA - Follow up with Dr. Hudson as outpatient 3. Chronic L foot ulcer - Dressing in place - Podiatry consulted- follow up regularly with Dr. Christensen 4. Hx of DVT - Not on anticoagulation at home - Lovenox 40 SC 5. Anemia - Most likely chronic disease - Will check iron studies - No sign of overt bleeding at this time - Patient is 48yo and will need screening colonoscopy as outpatient - Pt reports having colonoscopy last yr but said it was poor prep despite taking all meds Case seen, discussed and reviewed with Dr. Justo Staton PGY3 <Janeen Kemp - Last Filed: 08/16/18 07:45> Objective - Vital Signs/Intake and Output Vital Signs (last 24 hours): Temp Pulse Resp BP Pulse Ox 100 F H 90 20 123/85 93 L 08/15/18 16:39 08/15/18 16:39 08/15/18 16:39 08/15/18 16:39 08/15/18 16:39 Intake and Output: 08/16/18 08/16/18 06:59 18:59 Intake Total 840 Balance 840 - Medications Medications: Current Medications Acetaminophen (Tylenol 325mg Tab) 650 mg PO Q4H PRN PRN Reason: Fever >100.4 F Last Admin: 08/15/18 16:00 Dose: 650 mg Acetaminophen (Tylenol 325mg Tab) 650 mg PO Q6H PRN PRN Reason: Pain, Mild (1-3) Dextrose (Dextrose 50% Inj) 0 ml IV STAT PRN; Protocol PRN Reason: Hypoglycemia Protocol Enoxaparin Sodium (Lovenox) 40 mg SC DAILY [facility]; Protocol Last Admin: 08/15/18 09:52 Dose: 40 mg Dextrose (Dextrose 5% In Water 1000 Ml) 1,000 mls @ 0 mls/hr IV .Q0M PRN; Pro tocol PRN Reason: Hypoglycemia Protocol Cefazolin Sodium (Ancef 1gm In Ns) 1 gm in 100 mls @ 100 mls/hr IVPB Q8 [facility]; Protocol Stop: 08/25/18 14:01 Last Admin: 08/16/18 04:59 Dose: 100 mls/hr Insulin Detemir (Levemir) 16 unit SC HS [facility] Last Admin: 08/16/18 02:23 Dose: Not Given Insulin Human Lispro (Humalog Low) 0 units SC ACHS [facility]; Protocol Last Admin: 08/16/18 02:22 Dose: Not Given Insulin Human Lispro (Humalog) 8 units SC AC [facility] Ketorolac Tromethamine (Toradol) 30 mg IVP Q6H PRN PRN Reason: Pain, moderate (4-7) Last Admin: 08/15/18 07:48 Dose: 30 mg Metoclopramide HCl (Reglan) 5 mg IVP ACHS [facility] Last Admin: 08/15/18 21:20 Dose: 5 mg Ondansetron HCl (Zofran Inj) 4 mg IVP Q6H PRN PRN Reason: Nausea/Vomiting Last Admin: 08/12/18 10:04 Dose: 4 mg Oxycodone/Acetaminophen (Percocet 5/325 Mg Tab) 1 tab PO Q6H PRN PRN Reason: Pain, moderate (4-7) Stop: 08/17/18 18:07 Oxycodone/Acetaminophen (Percocet 5/325 Mg Tab) 2 tab PO Q6H PRN PRN Reason: Pain, severe (8-10) Stop: 08/17/18 18:07 Pantoprazole Sodium (Protonix Inj) 40 mg IVP Q12 [facility] Last Admin: 08/15/18 21:20 Dose: 40 mg Polyethylene Glycol (Miralax) 17 gm PO DAILY [facility] Last Admin: 08/15/18 09:53 Dose: 17 gm - Labs Labs: 08/16/18 06:30 08/16/18 06:30 Attending/Attestation - Attestation I have personally seen and examined this patient.: Yes I have fully participated in the care of the patient.: Yes I have reviewed all pertinent clinical information, including history, physical exam and plan: Yes Notes (Text): Patient seen and examined by me with resident at 9:50 AM on 08/12/18. Case including HPI, physical exam, and assessment and plan discussed with resident. Agree with above with following additions/corrections. Patient is a 48-year-old male with past medical history significant for type 1 diabetes on insulin pump, osteomyelitis of left foot, TIA, bilateral lower extremity DVT, and Rascon's palsy that presented to the emergency room for 1 week history of abdominal pain and 1 day history of nonbloody vomiting. Patient states he is feeling ok. Still with some abdominal pain and nausea. Abdominal pain is generalized and cramping in nature. Last episode of vomiting was last night. Patient denies chest pain and shortness of breath. No headaches or dizziness. No lightheadedness. No change in vision. No dysuria. No fevers or chills. Last bowel movement was 08/10/18. Physical exam: General: Awake and alert, lying in bed in no acute distress. HEENT: Normocephalic, atraumatic, Extraocular muscles intact, pupils equal and reactive, no scleral icterus. Oropharynx is pink and moist. No pharyngeal erythema or exudate appreciated. Neck is supple. Cardiovascular: Normal rhythm. Normal S1 and S2. No murmus, rubs, or gallops appreciated. Pulmonary: Normal respiratory effort. No rhonchi, rales, or wheezing appreciated. Gastrointestinal: Soft. Nondistended. Positive generalized tenderness. Positive bowel sounds all 4 quadrants. No guarding. Musculoskeletal: Moves all extremities. No calf tenderness. Dressing left lower extremity clean, dry and intact. Central nervous system: AAO x3, CN2-12 grossly intact. Dermatologic: Skin warm and dry. Assessment and plan: Patient is a 48-year-old male with past medical history significant for type 1 diabetes on insulin pump, osteomyelitis of left foot, TIA, bilateral lower extremity DVT, and Rascon's palsy that presented to the emergency room for 1 week history of abdominal pain and 1 day history of nonbloody vomiting. 1. Nausea, vomiting, and abdominal pain. Possible gastroparesis secondary to uncontrolled DM type 1. GI Following, recommendaitons appreciated. Abdominal ultrasound radiologist showed no acute findings related to/accounting for her clinical presentation. Abdominal x-ray per radiologist showed no obstruction, no obvious evidence of fecal impaction. Started on clear liquid diet. Advance diet as tolerated. Also started on Reglan by GI. Per GI, patient has had multiple E GDs consistent with chronic gastritis, esophagitis. 2. DM type 1, uncontrolled. Patient uses insulin pump at home. Pending HgbA1C. Continue insulin sliding scale. Continue to monitor accuchecks 3. Chronic Left foot ulcer. Dressing in placed. Podiatry consulted, follow up recommendations. 4. Anemia. Pending iron studies. Appears to be chronic. Downtrending likely secondary to IV fluids. No acute signs of bleeding. Continue to monitor CBC. 5. History of DVT. Per patient, he completed treatment and is still on current anticoagulation. 6. GI/DVT prophylaxis. Protonix/Lovenox Case was discussed in detail with patient regarding current diagnosis and treatment plan. All questions answered.
--- NOTE | 2018-08-12 12:30 | CP.PCM.CON ---
<Fransico Hwang - Last Filed: 08/12/18 12:23> History of Present Illness - History of Present Illness History of Present Illness: Podiatry consult note for Dr. Christensen 48M seen and evaluated at bedside. Patient has a past medical history of left ankle wounds and is known to Dr. Christensen. Patient follows every M/W in the wound center at [facility]. Patient states he came in for an appointment yesterday and was vomiting in the bathroom and felt very ill. Was sent to the ED by Dr. Christensen. States he presented for abdominal pain and vomiting. States he has felt ill since . States he has mild pain in his left foot where his chronic wounds are present and he keeps his dressing clean and and intact and is nonweightbearing to his left lower extremity. PMHx: DM1 on insulin pump, osteomyelitis of the left foot, TIA, B/L LE DVT and enciso's palsy PSHx: right shoulder rotator cuff in 2006 All: NKDA Past Patient History - Infectious Disease Hx of Infectious Diseases: None - Tetanus Immunizations Tetanus Immunization: Unknown - Past Medical History & Family History Past Medical History?: Yes - Past Social History Smoking Status: Never Smoked - CARDIAC Hx Cardiac Disorders: No - PULMONARY Hx Respiratory Disorders: No - NEUROLOGICAL Hx Neurological Disorder: Yes Hx Dizziness: Yes Hx Transient Ischemic Attacks (TIA): Yes - HEENT Hx HEENT Problems: Yes Other/Comment: Left eye blurry vision - RENAL Hx Chronic Kidney Disease: No - ENDOCRINE/METABOLIC Hx Endocrine Disorders: Yes Hx Diabetes Mellitus Type 1: Yes - HEMATOLOGICAL/ONCOLOGICAL Hx Blood Disorders: No - INTEGUMENTARY Hx Dermatological Problems: No - MUSCULOSKELETAL/RHEUMATOLOGICAL Hx Musculoskeletal Disorders: Yes Hx Falls: No (last fall 3 years ago) Hx Unsteady Gait: Yes - GASTROINTESTINAL Hx Gastrointestinal Disorders: No - GENITOURINARY/GYNECOLOGICAL Hx Genitourinary Disorders: No - PSYCHIATRIC Hx Psychophysiologic Disorder: No - SURGICAL HISTORY Hx Surgeries: Yes Other/Comment: right shoulder rotator cuff sx 2005 - ANESTHESIA Hx Anesthesia: Yes Hx Anesthesia Reactions: No (UNK) Hx Malignant Hyperthermia: No (UNK) Meds Allergies/Adverse Reactions: Allergies Allergy/AdvReac Type Severity Reaction Status Date / Time No Known Allergies Allergy Verified 03/17/18 21:43 - Medications Medications: Current Medications Acetaminophen (Tylenol 325mg Tab) 650 mg PO Q4H PRN PRN Reason: Fever >100.4 F Last Admin: 08/11/18 21:21 Dose: 650 mg Enoxaparin Sodium (Lovenox) 40 mg SC DAILY [facility]; Protocol Last Admin: 08/12/18 09:55 Dose: 40 mg Famotidine (Pepcid) 20 mg IVP DAILY [facility] Last Admin: 08/12/18 09:56 Dose: 20 mg Sodium Chloride (Sodium Chloride 0.9%) 1,000 mls @ 100 mls/hr IV .Q10H [facility] Last Admin: 08/12/18 05:48 Dose: 100 mls/hr Insulin Human Regular (Humulin R Low) 0 units SC ACHS [facility]; Protocol Last Admin: 08/12/18 12:01 Dose: 2 units Ketorolac Tromethamine (Toradol) 30 mg IVP Q6H PRN PRN Reason: Pain, moderate (4-7) Ondansetron HCl (Zofran Inj) 4 mg IVP Q6H PRN PRN Reason: Nausea/Vomiting Last Admin: 08/12/18 10:04 Dose: 4 mg Physical Exam - Constitutional Appears: Non-toxic, No Acute Distress - Head Exam Head Exam: ATRAUMATIC, NORMOCEPHALIC - Extremities Exam Additional comments: LE focused Vasc: DP and PT pulses palpable; cap refill <3 seconds to all digits; temp gradient warm to warm from proximal to distal; edema noted at the left ankle L>M as well as about the left fifth metatarsal base Derm: R: medial malleolar closed wound with no drainage or active signs of infection L: lateral malleolar wound 2cm x 1.5 cm x 0.5 cm with no clinical signs of infection; no drainage, no streaking, mild periwound erythema, no tunneling or PTB appreciated, no pus or purulent drainage; 5th met base wound 1 cm x 0.5 cm superificial with no PTB, no clinical signs of infection, no malodor, no tunneling or tracking, mild periwound erythema, no pus or fibrotic tissue appreciated Ortho: no pain on palpation at wound sites; muscle tone diminished Neuro: gross and protective sensation intact - Neurological Exam Neurological exam: Alert, Oriented x3 - Psychiatric Exam Psychiatric exam: Normal Affect, Normal Mood Results - Vital Signs Recent Vital Signs: Last Vital Signs Temp 100.2 F H 08/11/18 21:21 Pulse 86 08/11/18 19:22 Resp 20 08/11/18 22:16 BP 125/61 08/11/18 19:22 Pulse Ox 98 08/11/18 19:22 - Labs Result Diagrams: 08/12/18 06:30 08/12/18 06:30 Labs: Laboratory Results - last 24 hr 08/11/18 08/11/18 08/11/18 15:16 15:47 15:47 WBC RBC Hgb Hct MCV MCH MCHC RDW Plt Count MPV Gran % Lymph % (Auto) Bailey % (Auto) Eos % (Auto) Baso % (Auto) Gran # Lymph # (Auto) Bailey # (Auto) Eos # (Auto) Baso # (Auto) pO2 65 H VBG pH 7.45 H VBG pCO2 32.0 L VBG HCO3 22.2 VBG Total CO2 23.2 VBG O2 Sat (Calc) 96.3 H VBG Base Excess -1.0 L VBG Potassium 4.2 Sodium 129.0 L 130 L Chloride 93.0 L 92 L Glucose 386 H Lactate 2.7 H FiO2 21.0 Potassium 4.3 Carbon Dioxide 20 L Anion Gap 22 H BUN 21 Creatinine 0.8 Est GFR ( Amer) > 60 Est GFR (Non-Af Amer) > 60 POC Glucose (mg/dL) 330 H Random Glucose 366 H* D Calcium 9.1 Phosphorus Magnesium 1.7 Total Bilirubin 0.8 AST 20 ALT 18 Alkaline Phosphatase 102 Troponin I < 0.01 Total Protein 8.3 Albumin 4.4 Globulin 3.9 Albumin/Globulin Ratio 1.1 Lipase 23 Venous Blood Potassium 4.2 Urine Color Urine Appearance Urine pH Ur Specific Standard Urine Protein Urine Glucose (UA) Urine Ketones Urine Blood Urine Nitrate Urine Bilirubin Urine Urobilinogen Ur Leukocyte Esterase Urine RBC Urine WBC Ur Epithelial Cells 08/11/18 08/11/18 08/11/18 15:47 18:13 18:53 WBC 7.6 RBC 3.93 Hgb 12.3 L Hct 34.7 L MCV 88.3 MCH 31.3 MCHC 35.4 RDW 12.4 Plt Count 208 MPV 9.8 Gran % 84.5 H Lymph % (Auto) 9.9 L Bailey % (Auto) 5.5 Eos % (Auto) 0.0 L Baso % (Auto) 0.1 Gran # 6.42 Lymph # (Auto) 0.8 L Bailey # (Auto) 0.4 Eos # (Auto) 0.0 Baso # (Auto) 0.01 pO2 VBG pH VBG pCO2 VBG HCO3 VBG Total CO2 VBG O2 Sat (Calc) VBG Base Excess VBG Potassium Sodium Chloride Glucose Lactate FiO2 Potassium Carbon Dioxide Anion Gap BUN Creatinine Est GFR ( Amer) Est GFR (Non-Af Amer) POC Glucose (mg/dL) 320 H Random Glucose Calcium Phosphorus Magnesium Total Bilirubin AST ALT Alkaline Phosphatase Troponin I Total Protein Albumin Globulin Albumin/Globulin Ratio Lipase Venous Blood Potassium Urine Color Light yellow Urine Appearance Clear Urine pH 6.0 Ur Specific Standard 1.025 Urine Protein Trace H Urine Glucose (UA) >=1000 Urine Ketones >=80 Urine Blood Trace-lysed H Urine Nitrate Negative Urine Bilirubin Negative Urine Urobilinogen 0.2 Ur Leukocyte Esterase Negative Urine RBC 0 - 2 Urine WBC Negative Ur Epithelial Cells None 08/11/18 08/11/18 08/11/18 20:15 21:34 21:38 WBC RBC Hgb Hct MCV MCH MCHC RDW Plt Count MPV Gran % Lymph % (Auto) Bailey % (Auto) Eos % (Auto) Baso % (Auto) Gran # Lymph # (Auto) Bailey # (Auto) Eos # (Auto) Baso # (Auto) pO2 40 VBG pH 7.44 H VBG pCO2 32.0 L VBG HCO3 21.7 VBG Total CO2 22.7 VBG O2 Sat (Calc) 80.2 H VBG Base Excess -1.6 L VBG Potassium 3.6 Sodium 131.0 L 131 L Chloride 98.0 98 Glucose 281 H Lactate 1.4 FiO2 21.0 Potassium 4.0 Carbon Dioxide 25 Anion Gap 13 BUN 17 Creatinine 0.7 L Est GFR ( Amer) > 60 Est GFR (Non-Af Amer) > 60 POC Glucose (mg/dL) 202 H Random Glucose 224 H Calcium 8.1 L Phosphorus Magnesium Total Bilirubin AST ALT Alkaline Phosphatase Troponin I Total Protein Albumin Globulin Albumin/Globulin Ratio Lipase Venous Blood Potassium 3.6 Urine Color Urine Appearance Urine pH Ur Specific Standard Urine Protein Urine Glucose (UA) Urine Ketones Urine Blood Urine Nitrate Urine Bilirubin Urine Urobilinogen Ur Leukocyte Esterase Urine RBC Urine WBC Ur Epithelial Cells 0108/12/18 08/12/18 06:30 06:30 07:14 WBC 5.0 D RBC 3.51 Hgb 10.6 L Hct 31.3 L MCV 89.2 MCH 30.2 MCHC 33.9 RDW 12.7 Plt Count 190 MPV 9.7 Gran % 61.6 Lymph % (Auto) 24.3 Bailey % (Auto) 13.7 H Eos % (Auto) 0.2 L Baso % (Auto) 0.2 Gran # 3.10 Lymph # (Auto) 1.2 Bailey # (Auto) 0.7 H Eos # (Auto) 0.0 Baso # (Auto) 0.01 pO2 VBG pH VBG pCO2 VBG HCO3 VBG Total CO2 VBG O2 Sat (Calc) VBG Base Excess VBG Potassium Sodium 133 Chloride 101 Glucose Lactate FiO2 Potassium 4.1 Carbon Dioxide 25 Anion Gap 11 BUN 15 Creatinine 0.7 L Est GFR ( Amer) > 60 Est GFR (Non-Af Amer) > 60 POC Glucose (mg/dL) 242 H Random Glucose 246 H Calcium 7.9 L Phosphorus 3.2 Magnesium 1.9 Total Bilirubin 0.4 AST 18 ALT 17 Alkaline Phosphatase 66 Troponin I Total Protein 6.6 Albumin 3.3 Globulin 3.3 Albumin/Globulin Ratio 1.0 L Lipase Venous Blood Potassium Urine Color Urine Appearance Urine pH Ur Specific Standard Urine Protein Urine Glucose (UA) Urine Ketones Urine Blood Urine Nitrate Urine Bilirubin Urine Urobilinogen Ur Leukocyte Esterase Urine RBC Urine WBC Ur Epithelial Cells 08/12/18 11:11 WBC RBC Hgb Hct MCV MCH MCHC RDW Plt Count MPV Gran % Lymph % (Auto) Bailey % (Auto) Eos % (Auto) Baso % (Auto) Gran # Lymph # (Auto) Bailey # (Auto) Eos # (Auto) Baso # (Auto) pO2 VBG pH VBG pCO2 VBG HCO3 VBG Total CO2 VBG O2 Sat (Calc) VBG Base Excess VBG Potassium Sodium Chloride Glucose Lactate FiO2 Potassium Carbon Dioxide Anion Gap BUN Creatinine Est GFR ( Amer) Est GFR (Non-Af Amer) POC Glucose (mg/dL) 226 H Random Glucose Calcium Phosphorus Magnesium Total Bilirubin AST ALT Alkaline Phosphatase Troponin I Total Protein Albumin Globulin Albumin/Globulin Ratio Lipase Venous Blood Potassium Urine Color Urine Appearance Urine pH Ur Specific Standard Urine Protein Urine Glucose (UA) Urine Ketones Urine Blood Urine Nitrate Urine Bilirubin Urine Urobilinogen Ur Leukocyte Esterase Urine RBC Urine WBC Ur Epithelial Cells Assessment & Plan - Assessment and Plan (Free Text) Assessment: 48M seen and evaluated for left lateral malleolar and fifth met base chronic wounds secondary to flores Plan: Patient seen and evaluated Discussed in detail with Dr. Christensen Febrile 100.2 (08/11), absent leukocytosis Compressive dressing taken down, wounds cleansed with sterile saline, and dressed with maxorb and optifoam Continue medications per medicine team NPO status maintained Will continue to follow Thank you for the consult - Date & Time Date: 08/12/18 Time: 12:34 <Jennifer Christensen - Last Filed: 08/16/18 14:16> Meds - Medications Medications: Current Medications Acetaminophen (Tylenol 325mg Tab) 650 mg PO Q4H PRN PRN Reason: Fever >100.4 F Last Admin: 08/15/18 16:00 Dose: 650 mg Acetaminophen (Tylenol 325mg Tab) 650 mg PO Q6H PRN PRN Reason: Pain, Mild (1-3) Dextrose (Dextrose 50% Inj) 0 ml IV STAT PRN; Protocol PRN Reason: Hypoglycemia Protocol Enoxaparin Sodium (Lovenox) 40 mg SC DAILY [facility]; Protocol Last Admin: 08/16/18 09:58 Dose: 40 mg Dextrose (Dextrose 5% In Water 1000 Ml) 1,000 mls @ 0 mls/hr IV .Q0M PRN; Protocol PRN Reason: Hypoglycemia Protocol Cefazolin Sodium (Ancef 1gm In Ns) 1 gm in 100 mls @ 100 mls/hr IVPB Q8 [facility]; Protocol Stop: 08/25/18 14:01 Last Admin: 08/16/18 13:28 Dose: 100 mls/hr Insulin Detemir (Levemir) 24 unit SC HS [facility] Insulin Human Lispro (Humalog Low) 0 units SC ACHS [facility]; Protocol Last Admin: 08/16/18 11:45 Dose: Not Given Insulin Human Lispro (Humalog) 12 units SC AC [facility] Last Admin: 08/16/18 11:48 Dose: 12 units Ketorolac Tromethamine (Toradol) 30 mg IVP Q6H PRN PRN Reason: Pain, moderate (4-7) Last Admin: 08/15/18 07:48 Dose: 30 mg Metoclopramide HCl (Reglan) 5 mg IVP ACHS [facility] Last Admin: 08/16/18 11:49 Dose: 5 mg Ondansetron HCl (Zofran Inj) 4 mg IVP Q6H PRN PRN Reason: Nausea/Vomiting Last Admin: 08/12/18 10:04 Dose: 4 mg Oxycodone/Acetaminophen (Percocet 5/325 Mg Tab) 1 tab PO Q6H PRN PRN Reason: Pain, moderate (4-7) Stop: 08/17/18 18:07 Oxycodone/Acetaminophen (Percocet 5/325 Mg Tab) 2 tab PO Q6H PRN PRN Reason: Pain, severe (8-10) Stop: 08/17/18 18:07 Pantoprazole Sodium (Protonix Inj) 40 mg IVP Q12 [facility] Last Admin: 08/16/18 09:58 Dose: 40 mg Polyethylene Glycol (Miralax) 17 gm PO DAILY PRN PRN Reason: Constipation Results - Vital Signs Recent Vital Signs: Last Vital Signs Temp 97.5 F L 08/16/18 06:00 Pulse 90 08/16/18 06:00 Resp 18 08/16/18 06:00 BP 138/89 08/16/18 06:00 Pulse Ox 99 08/16/18 06:00 - Labs Result Diagrams: 08/16/18 06:30 08/16/18 06:30 Labs: Laboratory Results - last 24 hr 08/15/18 08/15/18 08/16/18 15:55 21:06 05:00 WBC RBC Hgb Hct MCV MCH MCHC RDW Plt Count MPV Gran % Lymph % (Auto) Bailey % (Auto) Eos % (Auto) Baso % (Auto) Gran # Lymph # (Auto) Bailey # (Auto) Eos # (Auto) Baso # (Auto) Sodium Potassium Chloride Carbon Dioxide Anion Gap BUN Creatinine Est GFR ( Amer) Est GFR (Non-Af Amer) POC Glucose (mg/dL) 256 H 311 H Random Glucose Calcium Magnesium Total Bilirubin AST ALT Alkaline Phosphatase Total Protein Albumin Globulin Albumin/Globulin Ratio Triglycerides Cholesterol LDL Cholesterol Direct HDL Cholesterol 25-OH Vitamin D Total 29.2 L TSH 3rd Generation Testosterone Level 08/16/18 08/16/18 08/16/18 06:30 06:30 07:00 WBC 7.4 D RBC 3.47 L Hgb 10.4 L Hct 30.3 L MCV 87.3 MCH 30.0 MCHC 34.3 RDW 12.1 Plt Count 219 MPV 9.7 Gran % 71.7 H Lymph % (Auto) 16.4 L Bailey % (Auto) 9.6 H Eos % (Auto) 2.2 Baso % (Auto) 0.1 Gran # 5.28 Lymph # (Auto) 1.2 Bailey # (Auto) 0.7 H Eos # (Auto) 0.2 Baso # (Auto) 0.01 Sodium 129 L Potassium 4.8 Chloride 92 L Carbon Dioxide 30 Anion Gap 12 BUN 13 Creatinine 0.7 L Est GFR ( Amer) > 60 Est GFR (Non-Af Amer) > 60 POC Glucose (mg/dL) Random Glucose 314 H* D Calcium 8.4 Magnesium 1.8 Total Bilirubin 0.3 AST 16 L D ALT 21 Alkaline Phosphatase 76 Total Protein 6.8 Albumin 3.4 Globulin 3.4 Albumin/Globulin Ratio 1.0 L Triglycerides 159 Cholesterol 169 LDL Cholesterol Direct 107 HDL Cholesterol 23 L 25-OH Vitamin D Total TSH 3rd Generation 0.93 Testosterone Level 441 08/16/18 08/16/18 07:30 11:21 WBC RBC Hgb Hct MCV MCH MCHC RDW Plt Count MPV Gran % Lymph % (Auto) Bailey % (Auto) Eos % (Auto) Baso % (Auto) Gran # Lymph # (Auto) Bailey # (Auto) Eos # (Auto) Baso # (Auto) Sodium Potassium Chloride Carbon Dioxide Anion Gap BUN Creatinine Est GFR ( Amer) Est GFR (Non-Af Amer) POC Glucose (mg/dL) 261 H 176 H Random Glucose Calcium Magnesium Total Bilirubin AST ALT Alkaline Phosphatase Total Protein Albumin Globulin Albumin/Globulin Ratio Triglycerides Cholesterol LDL Cholesterol Direct HDL Cholesterol 25-OH Vitamin D Total TSH 3rd Generation Testosterone Level Attending/Attestation - Attestation I have personally seen and examined this patient.: Yes I have fully participated in the care of the patient.: Yes I have reviewed all pertinent clinical information: Yes
[2018-08-12 14:18] LABS: IRON 18 ug/dL (45-180)
--- NOTE | 2018-08-12 14:21 | CARD ---
APPROVED REPORT Date of service: 08/12/2018 EKG Measurement Heart [id number] <Conclusion> Normal sinus rhythm Normal ECG
[2018-08-12 14:27] LABS: % IRON SATURATION 9 % (20-55); TOTAL IRON BINDING CAPACITY 195 ug/dL (261-462)
[2018-08-12 20:22] LABS: FOLATE > 20.0 ng/mL
[2018-08-13] MEDS: Sodium Chloride 0.9% 1,000 ML IV SCH ×2 (00:29→20:18)
[2018-08-13 07:02] LABS: ALB/GLOB RATIO 0.9 (1.1-1.8); ALT/SGPT 22 U/L (7-56); AST/SGOT 21 U/L (17-59); BLOOD UREA NITROGEN 9 mg/dL (7-21); GFR NON-AFRICAN AMERICAN > 60
[2018-08-13 07:05] LABS: BASO # 0.01 K/mm3 (0.0-2.0); BASO % 0.2 % (0.0-3.0); EOS % 0.4 % (1.5-5.0); GRAN # 2.81 (1.4-6.5); GRAN % 61.8 % (50.0-68.0); HEMOGLOBIN 10.6 g/dL (14.0-18.0); LYMPH # 1.2 (1.2-3.4); LYMPH % 27.3 % (22.0-35.0); MEAN CELL VOLUME 88.6 fl (80.0-105.0); MEAN CORPUSCULAR HEMOGLOBIN 30.2 pg (25.0-35.0); MEAN CORPUSCULAR HGB CONC 34.1 g/dl (31.0-37.0); MEAN PLATELET VOLUME 9.8 fl (7.0-11.0); MONO # 0.5 (0.1-0.6); MONO % 10.3 % (1.0-6.0); RBC 3.51 10^6/uL (3.5-6.1); RED CELL DISTRIBUTION WIDTH 12.5 % (11.5-14.5); WHITE BLOOD COUNT 4.6 10^3/uL (4.5-11.0)
[2018-08-13] MEDS: Insulin Reg-LOW-Coverage SC SCH ×4 (08:43→22:38)
[2018-08-13] MEDS: Enoxaparin 40 mg Syringe SC SCH (09:24)
--- NOTE | 2018-08-13 13:00 | CP.PCM.PN ---
<Issa Vick - Last Filed: 08/13/18 17:58> Subjective - Date & Time of Evaluation Date of Evaluation: 08/13/18 Time of Evaluation: 08:45 - Subjective Subjective: Issa Vick DO, PGY1. GI progress note for Dr Gonzalez Patient seen and examined at bedside. No acute events overnight. Epigastric pain improving. Tolerating his liquid diet. Denied vomiting, diarrhea, fever, chills, change in bowel movement Objective - Vital Signs/Intake and Output Vital Signs (last 24 hours): Temp Pulse Resp BP Pulse Ox 98.0 F 87 20 150/91 H 97 08/13/18 06:00 08/13/18 06:00 08/13/18 06:00 08/13/18 06:00 08/13/18 06:00 Intake and Output: 08/13/18 08/13/18 06:59 18:59 Intake Total 1920 Output Total 575 Balance 1345 - Medications Medications: Current Medications Acetaminophen (Tylenol 325mg Tab) 650 mg PO Q4H PRN PRN Reason: Fever >100.4 F Last Admin: 08/11/18 21:21 Dose: 650 mg Enoxaparin Sodium (Lovenox) 40 mg SC DAILY [facility]; Protocol Last Admin: 08/13/18 09:24 Dose: 40 mg Sodium Chloride (Sodium Chloride 0.9%) 1,000 mls @ 100 mls/hr IV .Q10H [facility] Last Admin: 08/13/18 00:29 Dose: 100 mls/hr Insulin Human Regular (Humulin R Low) 0 units SC ACHS [facility]; Protocol Last Admin: 08/13/18 08:43 Dose: 2 units Ketorolac Tromethamine (Toradol) 30 mg IVP Q6H PRN PRN Reason: Pain, moderate (4-7) Last Admin: 08/12/18 12:27 Dose: 30 mg Metoclopramide HCl (Reglan) 5 mg IVP ACHS [facility] Last Admin: 08/13/18 09:25 Dose: 5 mg Ondansetron HCl (Zofran Inj) 4 mg IVP Q6H PRN PRN Reason: Nausea/Vomiting Last Admin: 08/12/18 10:04 Dose: 4 mg Pantoprazole Sodium (Protonix Inj) 40 mg IVP Q12 [facility] Last Admin: 08/13/18 09:24 Dose: 40 mg - Labs Labs: 08/13/18 06:15 08/13/18 06:15 - Additional Findings Additional findings: - Constitutional Appears: Well, No Acute Distress, Cachectic, Chronically Ill - Head Exam Head Exam: ATRAUMATIC, NORMAL INSPECTION, NORMOCEPHALIC - Eye Exam Eye Exam: EOMI, Normal appearance, PERRL Pupil Exam: NORMAL ACCOMODATION, PERRL - ENT Exam ENT Exam: Mucous Membranes Dry - Neck Exam Neck exam: Positive for: Full Rom, Normal Inspection. Negative for: Tenderness, Thyromegaly - Respiratory Exam Respiratory Exam: Clear to Auscultation Bilateral, NORMAL BREATHING PATTERN. absent: Rhonchi, Wheezes - Cardiovascular Exam Cardiovascular Exam: REGULAR RHYTHM, +S1, +S2. absent: Gallop, Rubs - GI/Abdominal Exam GI & Abdominal Exam: Hypoactive Bowel Sounds, Soft, Tenderness (epigastric ). absent: Distended, Guarding, Organomegaly, Pulsatile Mass - Extremities Exam Additional comments: left LE: ankle edema, erythema, wound on lateral malleolus with dressing applied right LE: no edema, erythema. there is foot wound with dressing applied - Back Exam Back exam: NORMAL INSPECTION - Neurological Exam Neurological exam: Alert, CN II-XII Intact, Motor Sensory Deficit (LE muscle weakness and atrophy. intact sensation), Oriented x3, Reflexes Normal - Psychiatric Exam Psychiatric exam: Normal Affect, Normal Mood - Skin Additional comments: b/l LE wounds with erythema, edema Assessment and Plan - Assessment and Plan (Free Text) Assessment: 48 year old male with PMH of DM1 on insulin pump, TIA, B/L LE DVT and enciso's palsy admitted to [facility] for progressive epigastric abdominal pain x1 week Plan: -likely due gastroparesis in the setting of uncontrolled DM1 -patient is hemodynamically stable, afebrile, no leukocytosis, in NAD -Abd U/S and abd X-Ray did not show any acute events -CT A/P shows large amount of gastric food bezoar -continue PPI, IVF -continue short course of reglan for 5 days. EKG reviewed with normal QTc interval -advance diet to soft -pain control -avoid narcotics -f/u iron studies -LFT,vitamin B12, folate wnl -patient has multiple EGD consistent with chronic gastritis, esophagitis -patient counseled diabetic diet for better diabetes control, follow soft diet with proper chewing as he is missing some of his teeth -first mate consult -no endoscopic procedures needed at the moment -f/u with GI as outpatient Case reviewed and plan discussed with attending Dr Lisa Vick, DO <Mac Gonzalez V - Last Filed: 08/13/18 23:05> Objective - Vital Signs/Intake and Output Vital Signs (last 24 hours): Temp Pulse Resp BP Pulse Ox 98.0 F 87 20 150/91 H 97 08/13/18 06:00 08/13/18 06:00 08/13/18 06:00 08/13/18 06:00 08/13/18 06:00 Intake and Output: 08/13/18 08/14/18 18:59 06:59 Intake Total 1760 Output Total 1700 Balance 60 - Medications Medications: Current Medications Acetaminophen (Tylenol 325mg Tab) 650 mg PO Q4H PRN PRN Reason: Fever >100.4 F Last Admin: 08/11/18 21:21 Dose: 650 mg Enoxaparin Sodium (Lovenox) 40 mg SC DAILY [facility]; Protocol Last Admin: 08/13/18 09:24 Dose: 40 mg Insulin Human Regular (Humulin R Low) 0 units SC ACHS [facility]; Protocol Last Admin: 08/13/18 22:38 Dose: Not Given Ketorolac Tromethamine (Toradol) 30 mg IVP Q6H PRN PRN Reason: Pain, moderate (4-7) Last Admin: 08/12/18 12:27 Dose: 30 mg Metoclopramide HCl (Reglan) 5 mg IVP ACHS [facility] Last Admin: 08/13/18 22:38 Dose: Not Given Ondansetron HCl (Zofran Inj) 4 mg IVP Q6H PRN PRN Reason: Nausea/Vomiting Last Admin: 08/12/18 10:04 Dose: 4 mg Pantoprazole Sodium (Protonix Inj) 40 mg IVP Q12 [facility] Last Admin: 08/13/18 22:38 Dose: 40 mg - Labs Labs: 08/13/18 06:15 08/13/18 06:15 Attending/Attestation - Attestation I have personally seen and examined this patient.: Yes I have fully participated in the care of the patient.: Yes I have reviewed all pertinent clinical information, including history, physical exam and plan: Yes Notes (Text): This is an addendum to GI progress report dictated by the GI Resident .The patient was seen and examined earlier. Medical records, lab studies, imagings were reviewed. Last 24 hours events reviewed. Agreed with the above treatment plan as outlined in Resident 's notes with the addition of the following 08/13/18 23:04
--- NOTE | 2018-08-13 13:01 | CP.PCM.PN ---
<Deena Olivo - Last Filed: 08/13/18 15:10> Subjective - Date & Time of Evaluation Date of Evaluation: 08/13/18 Time of Evaluation: 12:34 - Subjective Subjective: Podiatry progress note for Dr. Christensen, 48 yo male seen and evaluated at bedside. Patient denies any acute overnight events. Admits to mild pain in his left foot where his chronic wounds are present. Admits to being nonweightbearing. Denies f/n/v/sob. Objective - Vital Signs/Intake and Output Vital Signs (last 24 hours): Temp Pulse Resp BP Pulse Ox 98.0 F 87 20 150/91 H 97 08/13/18 06:00 08/13/18 06:00 08/13/18 06:00 08/13/18 06:00 08/13/18 06:00 Intake and Output: 08/13/18 08/13/18 06:59 18:59 Intake Total 1920 Output Total 575 Balance 1345 - Medications Medications: Current Medications Acetaminophen (Tylenol 325mg Tab) 650 mg PO Q4H PRN PRN Reason: Fever >100.4 F Last Admin: 08/11/18 21:21 Dose: 650 mg Enoxaparin Sodium (Lovenox) 40 mg SC DAILY [facility]; Protocol Last Admin: 08/13/18 09:24 Dose: 40 mg Sodium Chloride (Sodium Chloride 0.9%) 1,000 mls @ 100 mls/hr IV .Q10H [facility] Last Admin: 08/13/18 00:29 Dose: 100 mls/hr Insulin Human Regular (Humulin R Low) 0 units SC ACHS [facility]; Protocol Last Admin: 08/13/18 08:43 Dose: 2 units Ketorolac Tromethamine (Toradol) 30 mg IVP Q6H PRN PRN Reason: Pain, moderate (4-7) Last Admin: 08/12/18 12:27 Dose: 30 mg Metoclopramide HCl (Reglan) 5 mg IVP ACHS [facility] Last Admin: 08/13/18 09:25 Dose: 5 mg Ondansetron HCl (Zofran Inj) 4 mg IVP Q6H PRN PRN Reason: Nausea/Vomiting Last Admin: 08/12/18 10:04 Dose: 4 mg Pantoprazole Sodium (Protonix Inj) 40 mg IVP Q12 [facility] Last Admin: 08/13/18 09:24 Dose: 40 mg - Labs Labs: 08/13/18 06:15 08/13/18 06:15 - Constitutional Appears: Well, Non-toxic, No Acute Distress - Head Exam Head Exam: ATRAUMATIC, NORMOCEPHALIC - Eye Exam Eye Exam: Normal appearance Pupil Exam: NORMAL ACCOMODATION - ENT Exam ENT Exam: Mucous Membranes Moist - Respiratory Exam Respiratory Exam: Clear to Ausculation Bilateral, NORMAL BREATHING PATTERN - Cardiovascular Exam Cardiovascular Exam: REGULAR RHYTHM, +S1, +S2 - Extremities Exam Additional comments: LE focused Vasc: DP and PT pulses palpable; cap refill <3 seconds to all digits; temp gradient warm to warm from proximal to distal; edema noted at the left ankle L>M as well as about the left fifth metatarsal base Derm: R: medial malleolar closed wound with no drainage or active signs of infection L: lateral malleolar wound 2cm x 1.5 cm x 0.5 cm with no clinical signs of infection; no drainage, no streaking, mild periwound erythema, no tunneling or PTB appreciated, no pus or purulent drainage; 5th met base wound 1 cm x 0.5 cm superificial with probe to bone, moderate malodor,with undermining, mild periwound erythema, minimal purulent drainage from the proximal aspect of the wound Ortho: no pain on palpation at wound sites; muscle tone diminished Neuro: gross and protective sensation intact Assessment and Plan - Assessment and Plan (Free Text) Assessment: 48M seen and evaluated for left lateral malleolar and fifth met base chronic wounds secondary to flores Plan: Patient seen and evaluated Discussed in detail with Dr. Christensen Febrile 100.2 (08/11), absent leukocytosis Right foot dressed with optifoam Left foot dressing with hydrogel, gauze, ABD and Kerlix Left foot MRI ordered Multipodus boots to be worn at all times f/u wound cultures Will continue to follow <Jennifer Christensen - Last Filed: 08/16/18 14:13> Objective - Vital Signs/Intake and Output Vital Signs (last 24 hours): Temp Pulse Resp BP Pulse Ox 97.5 F L 90 18 138/89 99 08/16/18 06:00 08/16/18 06:00 08/16/18 06:00 08/16/18 06:00 08/16/18 06:00 Intake and Output: 08/16/18 08/16/18 06:59 18:59 Intake Total 840 360 Balance 840 360 - Medications Medications: Current Medications Acetaminophen (Tylenol 325mg Tab) 650 mg PO Q4H PRN PRN Reason: Fever >100.4 F Last Admin: 08/15/18 16:00 Dose: 650 mg Acetaminophen (Tylenol 325mg Tab) 650 mg PO Q6H PRN PRN Reason: Pain, Mild (1-3) Dextrose (Dextrose 50% Inj) 0 ml IV STAT PRN; Protocol PRN Reason: Hypoglycemia Protocol Enoxaparin Sodium (Lovenox) 40 mg SC DAILY [facility]; Protocol Last Admin: 08/16/18 09:58 Dose: 40 mg Dextrose (Dextrose 5% In Water 1000 Ml) 1,000 mls @ 0 mls/hr IV .Q0M PRN; Protocol PRN Reason: Hypoglycemia Protocol Cefazolin Sodium (Ancef 1gm In Ns) 1 gm in 100 mls @ 100 mls/hr IVPB Q8 [facility]; Protocol Stop: 08/25/18 14:01 Last Admin: 08/16/18 13:28 Dose: 100 mls/hr Insulin Detemir (Levemir) 24 unit SC [facility] Insulin Human Lispro (Humalog Low) 0 units SC [facility]; Protocol Last Admin: 08/16/18 11:45 Dose: Not Given Insulin Human Lispro (Humalog) 12 units SC AC [facility] Last Admin: 08/16/18 11:48 Dose: 12 units Ketorolac Tromethamine (Toradol) 30 mg IVP Q6H PRN PRN Reason: Pain, moderate (4-7) Last Admin: 08/15/18 07:48 Dose: 30 mg Metoclopramide HCl (Reglan) 5 mg IVP ACHS [facility] Last Admin: 08/16/18 11:49 Dose: 5 mg Ondansetron HCl (Zofran Inj) 4 mg IVP Q6H PRN PRN Reason: Nausea/Vomiting Last Admin: 08/12/18 10:04 Dose: 4 mg Oxycodone/Acetaminophen (Percocet 5/325 Mg Tab) 1 tab PO Q6H PRN PRN Reason: Pain, moderate (4-7) Stop: 08/17/18 18:07 Oxycodone/Acetaminophen (Percocet 5/325 Mg Tab) 2 tab PO Q6H PRN PRN Reason: Pain, severe (8-10) Stop: 08/17/18 18:07 Pantoprazole Sodium (Protonix Inj) 40 mg IVP Q12 [facility] Last Admin: 08/16/18 09:58 Dose: 40 mg Polyethylene Glycol (Miralax) 17 gm PO DAILY PRN PRN Reason: Constipation - Labs Labs: 08/16/18 06:30 08/16/18 06:30 Attending/Attestation - Attestation I have personally seen and examined this patient.: Yes I have fully participated in the care of the patient.: Yes I have reviewed all pertinent clinical information, including history, physical exam and plan: Yes
--- NOTE | 2018-08-13 14:26 | CP.PCM.APN ---
Subjective - Date & Time of Evaluation Date of Evaluation: 08/13/18 Time of Evaluation: 13:30 - Subjective Subjective: Patient seen and examined at bedside. Tolerated soft diet, denied nausea, vomiting, states epigastic discomfort still present. Also complains of left foot pain, states had fever earlier today, however no fever documented. States walks at home with crutches. Review of Systems - Constitutional Constitutional: Chills, Fever - Gastrointestinal Gastrointestinal: Abdominal Pain - Musculoskeletal Musculoskeletal: As Per HPI Additional comments: left foot wrapped with dressing. - Integumentary Integumentary: Non-Healing Lesions Additional comments: left foot, with ulcer to lateral foot, wrapped. Objective - Vital Signs/Intake and Output Vital Signs (last 24 hours): Temp Pulse Resp BP Pulse Ox 98.0 F 87 20 150/91 H 97 08/13/18 06:00 08/13/18 06:00 08/13/18 06:00 08/13/18 06:00 08/13/18 06:00 Intake and Output: 08/13/18 08/13/18 06:59 18:59 Intake Total 1920 Output Total 575 Balance 1345 - Medications Medications: Current Medications Acetaminophen (Tylenol 325mg Tab) 650 mg PO Q4H PRN PRN Reason: Fever >100.4 F Last Admin: 08/11/18 21:21 Dose: 650 mg Enoxaparin Sodium (Lovenox) 40 mg SC DAILY [facility]; Protocol Last Admin: 08/13/18 09:24 Dose: 40 mg Sodium Chloride (Sodium Chloride 0.9%) 1,000 mls @ 100 mls/hr IV .Q10H [facility] Last Admin: 08/13/18 00:29 Dose: 100 mls/hr Insulin Human Regular (Humulin R Low) 0 units SC ACHS [facility]; Protocol Last Admin: 08/13/18 08:43 Dose: 2 units Ketorolac Tromethamine (Toradol) 30 mg IVP Q6H PRN PRN Reason: Pain, moderate (4-7) Last Admin: 08/12/18 12:27 Dose: 30 mg Metoclopramide HCl (Reglan) 5 mg IVP ACHS [facility] Last Admin: 08/13/18 09:25 Dose: 5 mg Ondansetron HCl (Zofran Inj) 4 mg IVP Q6H PRN PRN Reason: Nausea/Vomiting Last Admin: 08/12/18 10:04 Dose: 4 mg Pantoprazole Sodium (Protonix Inj) 40 mg IVP Q12 [facility] Last Admin: 08/13/18 09:24 Dose: 40 mg - Labs Labs: 08/13/18 06:15 08/13/18 06:15 - Constitutional Appears: Well, Non-toxic - Head Exam Head Exam: ATRAUMATIC - Eye Exam Eye Exam: Normal appearance Pupil Exam: NORMAL ACCOMODATION - ENT Exam ENT Exam: Mucous Membranes Moist, Normal Exam - Neck Exam Neck Exam: Full ROM, Normal Inspection - Respiratory Exam Respiratory Exam: Clear to Ausculation Bilateral - Cardiovascular Exam Cardiovascular Exam: +S1, +S2 - GI/Abdominal Exam GI & Abdominal Exam: Soft, Normal Bowel Sounds - Rectal Exam Rectal Exam: Deferred - Extremities Exam Extremities Exam: Pedal Edema Additional comments: left foot with +2 edema - Back Exam Back Exam: NORMAL INSPECTION - Neurological Exam Neurological Exam: Abnormal Gait, Oriented x3 - Skin Skin Exam: Dry, Intact, Normal Color, Warm Assessment and Plan - Assessment and Plan (Free Text) Assessment: 48yo male with past medical history of DM-I (currently on insulin pump), TIA, enciso's palsy, bilateral DVT (2000 after accident) and UE DVT s/p picc (2014), L chronic foot wound, L charcot ankle who was admitted for gastroparesis, sent from Dr. Christensen's office, with complaints of nausea and vomitting. Radiology Results Abdomen Ultrasound 08/11/18 15:43 IMPRESSION: No acute findings related to/ accounting for the clinical presentation. Additional benign and/or incidental findings described above. No significant interval change compared to the prior examination(s). Chest X-Ray 08/11/18 15:43 IMPRESSION: No active disease. Abdomen X-Ray 08/11/18 19:47 IMPRESSION: No obstruction. No obvious evidence of fecal impaction. Assessment/Plan 1. Abdominal pain - secondary to gastroparesis v. gastroenteritis - GI consulted - Liquid diet advanced to soft, tolerated for lunch - Abd XR no evidence of bowel obstruction or fecal impaction and Abd US showed no acute findings - NS@100 - Zofran prn nausea, Toradol prn pain (total 4 doses) - Endoscopy in 2016 showed esophagitis and gastritis - Qtc mildly prolonged- will hold reglan for now. 2. Gastroparesis - secondary to uncontrolled blood glucose, glucose 330 in ED. Nausea and vomitting improved, continue with Zofran prn 3. Left Foot Wound (Chronic) - Evaluated by Dr. Christensen, left foot lateral ulcer with opening extending to bone, clinical osteomyelitis upon assessment, requiring 4-6 ` weeks IV antibiotics. Picc line insertion pending, MRI ordered pending, wound culture from left foot obtained, pending results. ID consult ordered, pending. Patient will likely need IV Antibiotic treatment of osteomyelitis, workup is pending. Discussed with SW, [facility] needed, CM/JOSEPH for DC planning to [facility], PT eval pending. Will continue to monitor clinical status and follow closely.
--- NOTE | 2018-08-13 14:29 | CP.PCM.PN ---
<Alex Aguayo - Last Filed: 08/13/18 14:25> Subjective - Date & Time of Evaluation Date of Evaluation: 08/13/18 Time of Evaluation: 07:30 - Subjective Subjective: Pt seen and examined this morning. Pt denies nausea, vomiting, constipation, diarrhea. Pt reports some mild abdominal pain. Objective - Vital Signs/Intake and Output Vital Signs (last 24 hours): Temp Pulse Resp BP Pulse Ox 98.0 F 87 20 150/91 H 97 08/13/18 06:00 08/13/18 06:00 08/13/18 06:00 08/13/18 06:00 08/13/18 06:00 Intake and Output: 08/13/18 08/13/18 06:59 18:59 Intake Total 1920 Output Total 575 Balance 1345 - Medications Medications: Current Medications Acetaminophen (Tylenol 325mg Tab) 650 mg PO Q4H PRN PRN Reason: Fever >100.4 F Last Admin: 08/11/18 21:21 Dose: 650 mg Enoxaparin Sodium (Lovenox) 40 mg SC DAILY [facility]; Protocol Last Admin: 08/13/18 09:24 Dose: 40 mg Sodium Chloride (Sodium Chloride 0.9%) 1,000 mls @ 100 mls/hr IV .Q10H [facility] Last Admin: 08/13/18 00:29 Dose: 100 mls/hr Insulin Human Regular (Humulin R Low) 0 units SC ACHS [facility]; Protocol Last Admin: 08/13/18 08:43 Dose: 2 units Ketorolac Tromethamine (Toradol) 30 mg IVP Q6H PRN PRN Reason: Pain, moderate (4-7) Last Admin: 08/12/18 12:27 Dose: 30 mg Metoclopramide HCl (Reglan) 5 mg IVP ACHS [facility] Last Admin: 08/13/18 09:25 Dose: 5 mg Ondansetron HCl (Zofran Inj) 4 mg IVP Q6H PRN PRN Reason: Nausea/Vomiting Last Admin: 08/12/18 10:04 Dose: 4 mg Pantoprazole Sodium (Protonix Inj) 40 mg IVP Q12 [facility] Last Admin: 08/13/18 09:24 Dose: 40 mg - Labs Labs: 08/13/18 06:15 01/02/19 06:15 - Constitutional Appears: No Acute Distress - Head Exam Head Exam: ATRAUMATIC, NORMOCEPHALIC - Eye Exam Eye Exam: EOMI - ENT Exam ENT Exam: Mucous Membranes Moist - Neck Exam Neck Exam: Full ROM - Respiratory Exam Respiratory Exam: Clear to Ausculation Bilateral, NORMAL BREATHING PATTERN. absent: Accessory Muscle Use, Wheezes - Cardiovascular Exam Cardiovascular Exam: +S1, +S2. absent: Diastolic murmur - GI/Abdominal Exam GI & Abdominal Exam: Soft, Normal Bowel Sounds Additional comments: pain to palpation over rib, mid clavicular line, left sided - Extremities Exam Extremities Exam: Full ROM Additional comments: chronic open sores on feet are bandaged bl - Neurological Exam Neurological Exam: Alert, Awake, Oriented x3 - Psychiatric Exam Psychiatric exam: Normal Affect, Normal Mood - Skin Skin Exam: Dry, Intact, Warm Assessment and Plan - Assessment and Plan (Free Text) Assessment: Pt is a 48yo male with past medical history of DM-I (currently on insulin pump), TIA, rascon's palsy, bilateral DVT (2000 after accident) and UE DVT s/p picc (2014), L chronic foot wound (was tx for osteomyelitis of same foot in past), L charcot ankle who was admitted for abdominal pain. Plan: Abdominal pain - secondary to gastroparesis v. gastroenteritis - HHD, advance diet as tolerated - Abd XR no evidence of bowel obstruction or fecal impaction and Abd US showed no acute findings - NS@100 - Zofran prn nausea, Toradol prn pain (total 4 doses) - Endoscopy in 2016 showed esophagitis and gastritis - Qtc mildly prolonged- will hold reglan for now. - GI consulted Chronic L foot ulcer/ Clinical Osteomyolitis - Dressing in place - MRI follow up - [facility]E follow up - Podiatry consulted- follow up regularly with Dr. Christensen DM - Insulin pump removed and is at home - ISS - HA1C 10.3 - Follow up with Dr. Hudson as outpatient Hx of DVT - Lovenox 40 SC Anemia - Most likely chronic disease - No sign of overt bleeding at this time - Patient is 48yo and will need screening colonoscopy as outpatient - Pt reports having colonoscopy last yr but said it was poor prep despite taking all meds Pt seen, examined, assessment and plan discussed with Dr Janeen Aguayo PGY1, Internal Medicine Resident <Janeen Kemp R - Last Filed: 08/16/18 08:12> Objective - Vital Signs/Intake and Output Vital Signs (last 24 hours): Temp Pulse Resp BP Pulse Ox 100 F H 90 20 123/85 93 L 08/15/18 16:39 08/15/18 16:39 08/15/18 16:39 08/15/18 16:39 08/15/18 16:39 Intake and Output: 08/16/18 08/16/18 06:59 18:59 Intake Total 840 Balance 840 - Medications Medications: Current Medications Acetaminophen (Tylenol 325mg Tab) 650 mg PO Q4H PRN PRN Reason: Fever >100.4 F Last Admin: 08/15/18 16:00 Dose: 650 mg Acetaminophen (Tylenol 325mg Tab) 650 mg PO Q6H PRN PRN Reason: Pain, Mild (1-3) Dextrose (Dextrose 50% Inj) 0 ml IV STAT PRN; Protocol PRN Reason: Hypoglycemia Protocol Enoxaparin Sodium (Lovenox) 40 mg SC DAILY [facility]; Protocol Last Admin: 08/15/18 09:52 Dose: 40 mg Dextrose (Dextrose 5% In Water 1000 Ml) 1,000 mls @ 0 mls/hr IV .Q0M PRN; Protocol PRN Reason: Hypoglycemia Protocol Cefazolin Sodium (Ancef 1gm In Ns) 1 gm in 100 mls @ 100 mls/hr IVPB Q8 [facility]; Protocol Stop: 08/25/18 14:01 Last Admin: 08/16/18 04:59 Dose: 100 mls/hr Insulin Detemir (Levemir) 16 unit SC HS [facility] Last Admin: 08/16/18 02:23 Dose: Not Given Insulin Human Lispro (Humalog Low) 0 units SC ACHS [facility]; Protocol Last Admin: 08/16/18 02:22 Dose: Not Given Insulin Human Lispro (Humalog) 8 units SC AC [facility] Ketorolac Tromethamine (Toradol) 30 mg IVP Q6H PRN PRN Reason: Pain, moderate (4-7) Last Admin: 08/15/18 07:48 Dose: 30 mg Metoclopramide HCl (Reglan) 5 mg IVP ACHS [facility] Last Admin: 08/15/18 21:20 Dose: 5 mg Ondansetron HCl (Zofran Inj) 4 mg IVP Q6H PRN PRN Reason: Nausea/Vomiting Last Admin: 08/12/18 10:04 Dose: 4 mg Oxycodone/Acetaminophen (Percocet 5/325 Mg Tab) 1 tab PO Q6H PRN PRN Reason: Pain, moderate (4-7) Stop: 08/17/18 18:07 Oxycodone/Acetaminophen (Percocet 5/325 Mg Tab) 2 tab PO Q6H PRN PRN Reason: Pain, severe (8-10) Stop: 08/17/18 18:07 Pantoprazole Sodium (Protonix Inj) 40 mg IVP Q12 [facility] Last Admin: 08/15/18 21:20 Dose: 40 mg Polyethylene Glycol (Miralax) 17 gm PO DAILY [facility] Last Admin: 08/15/18 09:53 Dose: 17 gm - Labs Labs: 08/16/18 06:30 08/16/18 06:30 Attending/Attestation - Attestation I have personally seen and examined this patient.: Yes I have fully participated in the care of the patient.: Yes I have reviewed all pertinent clinical information, including history, physical exam and plan: Yes Notes (Text): Patient seen and examined by me with resident at 11:10 AM on 08/13/18. Case including HPI, physical exam, and assessment and plan discussed with resident. Agree with above with following additions/corrections. Patient is a 48-year-old male with past medical history significant for type 1 diabetes on insulin pump, osteomyelitis of left foot, TIA, bilateral lower extremity DVT, and Rascon's palsy that presented to the emergency room for 1 week history of abdominal pain and 1 day history of nonbloody vomiting. Patient states he is feeling a little better today. States abdominal pain is better but still hurt in upper part of abdomen. Nausea has improved. Patient is tolerating diet. Patient denies any pain in his left lower extremity. No chest pain or shortness of breath. No headaches or dizziness. No lightheadedness. No change in vision. No dysuria. No fevers or chills. Last bowel movement was 08/10/18. Physical exam: General: Awake and alert, lying in bed in no acute distress. HEENT: Normocephalic, atraumatic, Extraocular muscles intact, pupils equal and reactive, no scleral icterus. Oropharynx is pink and moist. No pharyngeal erythema or exudate appreciated. Neck is supple. Cardiovascular: Normal rhythm. Normal S1 and S2. No murmus, rubs, or gallops appreciated. Pulmonary: Normal respiratory effort. No rhonchi, rales, or wheezing appreciated. Gastrointestinal: Soft. Nondistended. Positive generalized tenderness. Positive bowel sounds all 4 quadrants. No guarding. Musculoskeletal: Moves all extremities. No calf tenderness. Dressing left lower extremity clean, dry and intact. Central nervous system: AAO x3, CN2-12 grossly intact. Dermatologic: Skin warm and dry. Assessment and plan: Patient is a 48-year-old male with past medical history significant for type 1 diabetes on insulin pump, osteomyelitis of left foot, TIA, bilateral lower extremity DVT, and Rascon's palsy that presented to the emergency room for 1 week history of abdominal pain and 1 day history of nonbloody vomiting. 1. Nausea, vomiting, and abdominal pain. Possible gastroparesis secondary to uncontrolled DM type 1. Slowly improving. GI Following, recommendaitons appreciated. Diet advanced. Continue Reglan per GI. Abdominal ultrasound radiologist showed no acute findings related to/accounting for her clinical presentation. Abdominal x-ray per radiologist showed no obstruction, no obvious evidence of fecal impaction.Per GI, patient has had multiple EGDs consistent with chronic gastritis, esophagitis. 2. DM type 1, uncontrolled. Patient uses insulin pump at home. HgbA1C 10.3. Continue insulin sliding scale. Continue to monitor accuchecks. Per patient, his insulin was adjusted by his doctor in July. 3. Chronic Left foot ulcer. Dressing in place. Podiatry following, recommendations appreciated. Pending MRI and BARRIE results. Continue care as per podiatry. ID consulted for possible antibiotic need 4. Anemia. Appears to be chronic. H&H stable. No acute signs of bleeding. Continue to monitor CBC. Iron 18, TIBC 195, percent saturation 9, ferritin 330. 5. History of DVT. Per patient, he completed treatment and is still on current anticoagulation. 6. GI/DVT prophylaxis. Protonix/Lovenox Case was discussed in detail with patient regarding current diagnosis and treatment plan. All questions answered.
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
--- NOTE | 2018-08-13 17:00 | US ---
PROCEDURE: Lower extremity BARRIE exam HISTORY: Peripheral vascular disease with pain and ulceration. Diabetes.. PHYSICIAN(S): Hamilton Wills MD. FINDINGS: The resting BARRIE's are normal: right, 1.16and left, 1.14. The brachial systolic pressures are symmetric. The high thigh pressures are noncompressible. The high thigh PVR waveforms are normal and symmetric The calf PVR waveforms augment normally. No significant gradients are noted across the thighs. The left ankle and metatarsal waveforms are normal. The right ankle and metatarsal waveforms are mildly blunted. This could be related to technique or possibly right tibial disease. IMPRESSION: 1. Relatively normal BARRIE and PVR examination at rest. 2. Possible right tibial occlusive disease
[2018-08-14 06:43] LABS: BASO # 0.01 K/mm3 (0.0-2.0); BASO % 0.2 % (0.0-3.0); EOS # 0.1 (0.0-0.7); EOS % 1.1 % (1.5-5.0); GRAN # 2.73 (1.4-6.5); GRAN % 58.3 % (50.0-68.0); HEMOGLOBIN 10.9 g/dL (14.0-18.0); LYMPH # 1.3 (1.2-3.4); LYMPH % 28.2 % (22.0-35.0); MEAN CELL VOLUME 87.1 fl (80.0-105.0); MEAN CORPUSCULAR HEMOGLOBIN 29.9 pg (25.0-35.0); MEAN CORPUSCULAR HGB CONC 34.4 g/dl (31.0-37.0); MEAN PLATELET VOLUME 9.6 fl (7.0-11.0); MONO # 0.6 (0.1-0.6); MONO % 12.2 % (1.0-6.0); RBC 3.64 10^6/uL (3.5-6.1); RED CELL DISTRIBUTION WIDTH 12.2 % (11.5-14.5); WHITE BLOOD COUNT 4.7 10^3/uL (4.5-11.0)
[2018-08-14 07:01] LABS: ALBUMIN 3.4 g/dL (3.0-4.8); ALT/SGPT 21 U/L (7-56); AST/SGOT 20 U/L (17-59); BLOOD UREA NITROGEN 8 mg/dL (7-21); CALCIUM 8.4 mg/dL (8.4-10.5); GFR NON-AFRICAN AMERICAN > 60
[2018-08-14] MEDS: Insulin Reg-LOW-Coverage SC SCH ×4 (08:51→21:45)
--- NOTE | 2018-08-14 09:26 | CP.PCM.PN ---
<Deena Olivo - Last Filed: 08/14/18 09:17> Subjective - Date & Time of Evaluation Date of Evaluation: 08/14/18 Time of Evaluation: 09:17 - Subjective Subjective: Podiatry progress note for Dr. Christensen, 48 yo male seen and evaluated at bedside. Patient denies any acute overnight events. Admits to mild pain in his left foot where his chronic wounds are present. Admits to being nonweightbearing. Denies fever, nausea, vomiting. Objective - Vital Signs/Intake and Output Vital Signs (last 24 hours): Temp Pulse Resp BP Pulse Ox 98.1 F 88 19 122/86 97 08/14/18 08:18 08/14/18 08:18 08/14/18 08:18 08/14/18 08:18 08/14/18 08:18 Intake and Output: 08/14/18 08/14/18 06:59 18:59 Intake Total 1760 Output Total 1700 Balance 60 - Medications Medications: Current Medications Acetaminophen (Tylenol 325mg Tab) 650 mg PO Q4H PRN PRN Reason: Fever >100.4 F Last Admin: 08/11/18 21:21 Dose: 650 mg Enoxaparin Sodium (Lovenox) 40 mg SC DAILY [facility]; Protocol Last Admin: 08/13/18 09:24 Dose: 40 mg Insulin Human Regular (Humulin R Low) 0 units SC ACHS [facility]; Protocol Last Admin: 08/14/18 08:51 Dose: 4 units Ketorolac Tromethamine (Toradol) 30 mg IVP Q6H PRN PRN Reason: Pain, moderate (4-7) Last Admin: 08/14/18 08:55 Dose: 30 mg Metoclopramide HCl (Reglan) 5 mg IVP ACHS [facility] Last Admin: 08/14/18 08:52 Dose: 5 mg Ondansetron HCl (Zofran Inj) 4 mg IVP Q6H PRN PRN Reason: Nausea/Vomiting Last Admin: 08/12/18 10:04 Dose: 4 mg Pantoprazole Sodium (Protonix Inj) 40 mg IVP Q12 [facility] Last Admin: 08/13/18 22:38 Dose: 40 mg - Labs Labs: 08/14/18 06:00 08/14/18 06:00 - Constitutional Appears: Well, Non-toxic, No Acute Distress - Head Exam Head Exam: ATRAUMATIC, NORMOCEPHALIC - Eye Exam Eye Exam: Normal appearance Pupil Exam: NORMAL ACCOMODATION - ENT Exam ENT Exam: Mucous Membranes Moist - Respiratory Exam Respiratory Exam: NORMAL BREATHING PATTERN - Cardiovascular Exam Cardiovascular Exam: REGULAR RHYTHM - Extremities Exam Additional comments: LE focused Vasc: DP and PT pulses palpable; cap refill <3 seconds to all digits; temp gradient warm to warm from proximal to distal; edema noted at the left ankle L>M as well as about the left fifth metatarsal base Derm: R: medial malleolar closed wound with no drainage or active signs of infection L: lateral malleolar wound 2cm x 1.5 cm x 0.5 cm with no clinical signs of infection; no drainage, no streaking, mild periwound erythema, no tunneling or PTB appreciated, no pus or purulent drainage; 5th met base wound 1 cm x 0.5 cm superificial with probe to bone, moderate malodor,with undermining, mild periwound erythema, minimal purulent drainage from the proximal aspect of the wound Ortho: no pain on palpation at wound sites; muscle tone diminished Neuro: gross and protective sensation intact - Neurological Exam Neurological Exam: Alert Assessment and Plan - Assessment and Plan (Free Text) Assessment: 48M seen and evaluated for left lateral malleolar and fifth met base chronic wounds secondary to flores Plan: Patient seen and evaluated Discussed in detail with Dr. Christensen Febrile 100.2 (08/11), absent leukocytosis B/l wounds cleansed with saline Right foot dressed with optifoam Left foot dressing with hydrogel, gauze, ABD and Kerlix Left foot MRI ordered; official read pending Multipodus boots to be worn at all times Patient to be brought into the OR at 5:00 pm for bone biopsy from the L fifth metatarsal. Patient aware of the surgery patient NPO after breakfast. f/u wound cultures Will continue to follow <Jennifer Christensen - Last Filed: 08/16/18 14:13> Objective - Vital Signs/Intake and Output Vital Signs (last 24 hours): Temp Pulse Resp BP Pulse Ox 97.5 F L 90 18 138/89 99 08/16/18 06:00 08/16/18 06:00 08/16/18 06:00 08/16/18 06:00 08/16/18 06:00 Intake and Output: 08/16/18 08/16/18 06:59 18:59 Intake Total 840 360 Balance 840 360 - Medications Medications: Current Medications Acetaminophen (Tylenol 325mg Tab) 650 mg PO Q4H PRN PRN Reason: Fever >100.4 F Last Admin: 08/15/18 16:00 Dose: 650 mg Acetaminophen (Tylenol 325mg Tab) 650 mg PO Q6H PRN PRN Reason: Pain, Mild (1-3) Dextrose (Dextrose 50% Inj) 0 ml IV STAT PRN; Protocol PRN Reason: Hypoglycemia Protocol Enoxaparin Sodium (Lovenox) 40 mg SC DAILY [facility]; Protocol Last Admin: 08/16/18 09:58 Dose: 40 mg Dextrose (Dextrose 5% In Water 1000 Ml) 1,000 mls @ 0 mls/hr IV .Q0M PRN; Protocol PRN Reason: Hypoglycemia Protocol Cefazolin Sodium (Ancef 1gm In Ns) 1 gm in 100 mls @ 100 mls/hr IVPB Q8 [facility]; Protocol Stop: 08/25/18 14:01 Last Admin: 08/16/18 13:28 Dose: 100 mls/hr Insulin Detemir (Levemir) 24 unit SC [facility] Insulin Human Lispro (Humalog Low) 0 units SC [facility]; Protocol Last Admin: 08/16/18 11:45 Dose: Not Given Insulin Human Lispro (Humalog) 12 units SC [facility] Last Admin: 08/16/18 11:48 Dose: 12 units Ketorolac Tromethamine (Toradol) 30 mg IVP Q6H PRN PRN Reason: Pain, moderate (4-7) Last Admin: 08/15/18 07:48 Dose: 30 mg Metoclopramide HCl (Reglan) 5 mg IVP ACHS [facility] Last Admin: 08/16/18 11:49 Dose: 5 mg Ondansetron HCl (Zofran Inj) 4 mg IVP Q6H PRN PRN Reason: Nausea/Vomiting Last Admin: 08/12/18 10:04 Dose: 4 mg Oxycodone/Acetaminophen (Percocet 5/325 Mg Tab) 1 tab PO Q6H PRN PRN Reason: Pain, moderate (4-7) Stop: 08/17/18 18:07 Oxycodone/Acetaminophen (Percocet 5/325 Mg Tab) 2 tab PO Q6H PRN PRN Reason: Pain, severe (8-10) Stop: 08/17/18 18:07 Pantoprazole Sodium (Protonix Inj) 40 mg IVP Q12 [facility] Last Admin: 08/16/18 09:58 Dose: 40 mg Polyethylene Glycol (Miralax) 17 gm PO DAILY PRN PRN Reason: Constipation - Labs Labs: 08/16/18 06:30 08/16/18 06:30 Attending/Attestation - Attestation I have personally seen and examined this patient.: Yes I have fully participated in the care of the patient.: Yes I have reviewed all pertinent clinical information, including history, physical exam and plan: Yes
[2018-08-14] MEDS: Enoxaparin 40 mg Syringe SC SCH (10:01)
--- NOTE | 2018-08-14 15:33 | CP.PCM.PN ---
<Alex Aguayo - Last Filed: 08/14/18 15:41> Subjective - Date & Time of Evaluation Date of Evaluation: 08/14/18 Time of Evaluation: 08:35 - Subjective Subjective: Pt seen and examined this morning at bedside. Pt reports mild abdominal pain. Denies chest pain, SOB, nausea, vomiting, or diarrhea. Objective - Vital Signs/Intake and Output Vital Signs (last 24 hours): Temp Pulse Resp BP Pulse Ox 98.1 F 88 19 122/86 97 08/14/18 08:18 08/14/18 08:18 08/14/18 08:18 08/14/18 08:18 08/14/18 08:18 Intake and Output: 08/14/18 08/14/18 06:59 18:59 Intake Total 1760 Output Total 1700 Balance 60 - Medications Medications: Current Medications Acetaminophen (Tylenol 325mg Tab) 650 mg PO Q4H PRN PRN Reason: Fever >100.4 F Last Admin: 08/11/18 21:21 Dose: 650 mg Enoxaparin Sodium (Lovenox) 40 mg SC DAILY [facility]; Protocol Last Admin: 08/14/18 10:01 Dose: 40 mg Insulin Detemir (Levemir) 5 unit SC HS [facility] Insulin Human Regular (Humulin R Low) 0 units SC ACHS [facility]; Protocol Last Admin: 08/14/18 13:28 Dose: 3 units Ketorolac Tromethamine (Toradol) 30 mg IVP Q6H PRN PRN Reason: Pain, moderate (4-7) Last Admin: 08/14/18 08:55 Dose: 30 mg Metoclopramide HCl (Reglan) 5 mg IVP ACHS [facility] Last Admin: 08/14/18 13:28 Dose: 5 mg Ondansetron HCl (Zofran Inj) 4 mg IVP Q6H PRN PRN Reason: Nausea/Vomiting Last Admin: 08/12/18 10:04 Dose: 4 mg Pantoprazole Sodium (Protonix Inj) 40 mg IVP Q12 [facility] Last Admin: 08/14/18 10:01 Dose: 40 mg - Labs Labs: 08/14/18 06:00 08/14/18 06:00 - Constitutional Appears: No Acute Distress - Head Exam Head Exam: ATRAUMATIC, NORMOCEPHALIC - Eye Exam Eye Exam: EOMI - ENT Exam ENT Exam: Mucous Membranes Moist - Neck Exam Neck Exam: Full ROM - Respiratory Exam Respiratory Exam: Clear to Ausculation Bilateral, NORMAL BREATHING PATTERN. absent: Respiratory Distress - Cardiovascular Exam Cardiovascular Exam: +S1, +S2. absent: Diastolic murmur - GI/Abdominal Exam GI & Abdominal Exam: Soft, Normal Bowel Sounds - Extremities Exam Extremities Exam: Full ROM. 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 Plan: Abdominal pain - secondary to gastroparesis v. gastroenteritis - HHD, advance diet as tolerated - Zofran prn - Toradol prn - Reglan - GI consulted Chronic L foot ulcer/ Clinical Osteomyolitis - MRI: fracture through the base of the 5th metatarsal with diffuse marrow edema. 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 Christensen DM - ISS - start levemir 5 HS - HA1C 10.3 - Follow up with Dr. Hudson as outpatient Constipation - miralax Hx of DVT - Lovenox 40 SC Anemia - likely anemia of chronic disease - No sign of overt bleeding at this time Pt seen, examined, assessment, and plan discussed with Dr Janeen Aguayo PGY1, Internal Medicine Resident <Janeen Kemp R - Last Filed: 08/16/18 10:54> Objective - Vital Signs/Intake and Output Vital Signs (last 24 hours): Temp Pulse Resp BP Pulse Ox 97.5 F L 90 18 138/89 99 08/16/18 06:00 08/16/18 06:00 08/16/18 06:00 08/16/18 06:00 08/16/18 06:00 Intake and Output: 08/16/18 08/16/18 06:59 18:59 Intake Total 840 Balance 840 - Medications Medications: Current Medications Acetaminophen (Tylenol 325mg Tab) 650 mg PO Q4H PRN PRN Reason: Fever >100.4 F Last Admin: 08/15/18 16:00 Dose: 650 mg Acetaminophen (Tylenol 325mg Tab) 650 mg PO Q6H PRN PRN Reason: Pain, Mild (1-3) Dextrose (Dextrose 50% Inj) 0 ml IV STAT PRN; Protocol PRN Reason: Hypoglycemia Protocol Enoxaparin Sodium (Lovenox) 40 mg SC DAILY [facility]; Protocol Last Admin: 08/16/18 09:58 Dose: 40 mg Dextrose (Dextrose 5% In Water 1000 Ml) 1,000 mls @ 0 mls/hr IV .Q0M PRN; Protocol PRN Reason: Hypoglycemia Protocol Cefazolin Sodium (Ancef 1gm In Ns) 1 gm in 100 mls @ 100 mls/hr IVPB Q8 [facility]; Protocol Stop: 08/25/18 14:01 Last Admin: 08/16/18 04:59 Dose: 100 mls/hr Insulin Detemir (Levemir) 24 unit SC HS [facility] Insulin Human Lispro (Humalog Low) 0 units SC ACHS [facility]; Protocol Last Admin: 08/16/18 08:25 Dose: Not Given Insulin Human Lispro (Humalog) 12 units SC AC [facility] Ketorolac Tromethamine (Toradol) 30 mg IVP Q6H PRN PRN Reason: Pain, moderate (4-7) Last Admin: 08/15/18 07:48 Dose: 30 mg Metoclopramide HCl (Reglan) [address] [facility] Last Admin: 08/16/18 08:25 Dose: 5 mg Ondansetron HCl (Zofran Inj) 4 mg IVP Q6H PRN PRN Reason: Nausea/Vomiting Last Admin: 08/12/18 10:04 Dose: 4 mg Oxycodone/Acetaminophen (Percocet 5/325 Mg Tab) 1 tab PO Q6H PRN PRN Reason: Pain, moderate (4-7) Stop: 08/17/18 18:07 Oxycodone/Acetaminophen (Percocet 5/325 Mg Tab) 2 tab PO Q6H PRN PRN Reason: Pain, severe (8-10) Stop: 08/17/18 18:07 Pantoprazole Sodium (Protonix Inj) 40 mg IVP Q12 [facility] Last Admin: 08/16/18 09:58 Dose: 40 mg Polyethylene Glycol (Miralax) 17 gm PO DAILY PRN PRN Reason: Constipation - Labs Labs: 08/16/18 06:30 08/16/18 06:30 Attending/Attestation - Attestation I have personally seen and examined this patient.: Yes I have fully participated in the care of the patient.: Yes I have reviewed all pertinent clinical information, including history, physical exam and plan: Yes Notes (Text): Patient seen and examined by me with resident at 11:40 AM on 08/14/18. Case including HPI, physical exam, and assessment and plan discussed with resident. Agree with above with following additions/corrections. Patient is a 48-year-old male with past medical history significant for type 1 diabetes on insulin pump, osteomyelitis of left foot, TIA, bilateral lower extremity DVT, and Rascon's palsy that presented to the emergency room for 1 week history of abdominal pain and 1 day history of nonbloody vomiting. Patient states he is feels ok. States abdominal pain is better but still there. No nausea or vomiting today. Patient is tolerating his diet. He denies pain in his left lower extremity. No chest pain or shortness of breath. No headaches or dizziness. No lightheadedness. No change in vision. No dysuria. No fevers or chills. No bowel movement yet. Physical exam: General: Awake and alert, lying in bed in no acute distress. HEENT: Normocephalic, atraumatic, Extraocular muscles intact, pupils equal and reactive, no scleral icterus. Oropharynx is pink and moist. No pharyngeal erythema or exudate appreciated. Neck is supple. Cardiovascular: Normal rhythm. Normal S1 and S2. No murmus, rubs, or gallops appreciated. Pulmonary: Normal respiratory effort. No rhonchi, rales, or wheezing appreciated. Gastrointestinal: Soft. Nondistended. Positive generalized tenderness. Positive bowel sounds all 4 quadrants. No guarding. Musculoskeletal: Moves all extremities. No calf tenderness. Dressing left lower extremity clean, dry and intact. Central nervous system: AAO x3, CN2-12 grossly intact. Dermatologic: Skin warm and dry. Assessment and plan: Patient is a 48-year-old male with past medical history si gnificant for type 1 diabetes on insulin pump, osteomyelitis of left foot, TIA, bilateral lower extremity DVT, and Rascon's palsy that presented to the emergency room for 1 week history of abdominal pain and 1 day history of nonbloody vomiting. 1. Nausea, vomiting, and abdominal pain. Likely gastroparesis secondary to uncontrolled DM type 1. Continues to improve. Patient advised to eat small meals. GI Following, recommendaitons appreciated. Diet advanced. Continue Reglan per GI. Abdominal ultrasound radiologist showed no acute findings related to/accounting for her clinical presentation. Abdominal x-ray per radiologist showed no obstruction, no obvious evidence of fecal impaction. Per GI, patient has had multiple EGDs consistent with chronic gastritis, esophagitis. 2. DM type 1, uncontrolled. Patient uses insulin pump at home. HgbA1C 10.3. Continue insulin sliding scale. Will start Levemir at bedtime. Continue to monitor accuchecks. Per patient, his insulin was adjusted by his doctor in July. 3. Chronic Left foot ulcer. Dressing in place. Podiatry following, recommendations appreciated. Left foot MRI per radiologist showed fracture through the base of the 5th metatarsal with diffuse marrow edema, chronic collapse and fragmentation of the talus. Lower extremity BARRIE exam per radiologist showed relatively normal BARRIE and PVR exam at rest, possible right tibial occlusive disease. Pulses intact on right. Continue care as per podiatry. Patient for OR for bone biopsy this evening. ID following, recommendations appreciated. Antibiotics to be started once culture results are back. No leukocytosis. Patient afebrile. 4. Anemia. Appears to be chronic. H&H stable. No acute signs of bleeding. Continue to monitor CBC. Iron 18, TIBC 195, % saturation 9, ferritin 330. 5. History of DVT. Per patient, he completed treatment and is no longer on anticoagulation. 6. GI/DVT prophylaxis. Protonix/Lovenox Case was discussed in detail with patient regarding current diagnosis and treat ment plan. All questions answered. 08/16/18 10:53
--- NOTE | 2018-08-14 15:33 | MRI ---
Date of service: 08/13/2018 PROCEDURE: MRI of the left foot without contrast HISTORY: osteomyelitis COMPARISON: Plain film dated 03/17/2018 TECHNIQUE: MRI of the left foot was performed in multiple planes using multiple pulse sequences. FINDINGS: On the current study there is no recognizable talus. Multiple small bony fragments are seen at the expected location of the talus. This was also seen on the previous plain film. There is deformity and degeneration of the navicular. The remaining bones of the midfoot are intact. The metatarsals are intact. There is a fracture through the tip of the base of the 5th metatarsal with a mild amount of marrow edema throughout the 5th metatarsal. This finding can be seen on image 23 series 3. The report concurs with the preliminary [facility] report IMPRESSION: Fracture through the base of the 5th metatarsal with diffuse marrow edema. 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
--- NOTE | 2018-08-14 15:55 | PN ---
DATE: 08/14/2018 SUBJECTIVE: The patient is in bed. Seen earlier today. No fevers, no chills. PHYSICAL EXAMINATION: VITAL SIGNS: Temperature is 98, T-max on 08/11/2018 was 100.2, respiratory rate 20, heart rate of 87. HEENT: Unremarkable. NECK: Supple. LUNGS: Have decreased breath sounds. HEART: Normal S1, S2. ABDOMEN: Soft and nontender. EXTREMITIES: Examination of the foot is noted. LABORATORY DATA: Cultures are pending. MRI is pending. ASSESSMENT AND PLAN: This is a 48-year-old male with diabetes mellitus and chronic foot infection, who was admitted with a history of bilateral deep vein thrombosis and transient ischemic attack and Rascon's palsy, now with a left foot ulcer, possible osteomyelitis. Since the patient is nontoxic, we will hold off on antibiotics, pending bone biopsy for cultures and MRI results and will make further recommendations. After biopsy, we can start empiric antibiotics. Stephen Gonzáles MD
[2018-08-14] MEDS ORDERED: Lactated Ringer's 1,000 ML IV SCH (16:30)
[2018-08-14] MEDS ORDERED: Lidocaine 2% Inj (20ml) ONE (16:54)
[2018-08-14] MEDS ORDERED: Midazolam 2 MG/2 ML VIAL ONE ×2 (17:19)
[2018-08-14] MEDS ORDERED: Gentamicin 80 mg/2mL Inj. ONE (17:29)
[2018-08-14] MEDS ORDERED: Oxycodone/Acetaminophen 5/325 mg Tab PO PRN ×2 (18:06)
--- NOTE | 2018-08-14 18:12 | PCM.SURG1 ---
Surgeon's Initial Post Op Note - Surgeon's Notes Surgeon: Jennifer Christensen DPM File Conversion Operator: Deena Olivo PGY1 Type of Anesthesia: IV Sedation Anesthesia Administered By: Dr. shearer Pre-Operative Diagnosis: left foot ulcer with possible osteomyelitis of the fifth metatarsal Operative Findings: see dictation. injectibles: 8 cc of 2% lidocaine plain. materials: 3-0 nylon Post-Operative Diagnosis: same Operation Performed: bone biopsy of the left fifth metatarsal Specimen/Specimens Removed: culture: left fifth metatarsal base. pathology: left fifth metatarsal base Estimated Blood Loss: EBL {In ML}: 2 Blood Products Given: N/A Drains Used: No Drains Post-Op Condition: Good Date of Surgery/Procedure: 08/14/18 Time of Surgery/Procedure: 18:12
--- NOTE | 2018-08-14 18:58 | CP.PCM.APN ---
Subjective - Date & Time of Evaluation Date of Evaluation: 08/14/18 Time of Evaluation: 12:00 - Subjective Subjective: Pt seen and examined at bedside. Denied abdominal Pain , nausea, vomiting, resting comfortabley, denied fever or chills. Review of Systems - Constitutional Constitutional: As Per HPI - EENT Eyes: Spots in Vision. absent: As Per HPI - Gastrointestinal Gastrointestinal: Abdominal Pain, Vomiting - Musculoskeletal Additional comments: left foot wrapped with dressing, Objective - Vital Signs/Intake and Output Vital Signs (last 24 hours): Temp Pulse Resp BP Pulse Ox 98.2 F 78 15 135/72 98 08/14/18 18:25 08/14/18 18:25 08/14/18 18:25 08/14/18 18:25 08/14/18 18:25 Intake and Output: 08/14/18 08/14/18 06:59 18:59 Intake Total 1760 1000 Output Total 1700 Balance 60 1000 - Medications Medications: Current Medications Acetaminophen (Tylenol 325mg Tab) 650 mg PO Q4H PRN PRN Reason: Fever >100.4 F Last Admin: 08/11/18 21:21 Dose: 650 mg Acetaminophen (Tylenol 325mg Tab) 650 mg PO Q6H PRN PRN Reason: Pain, Mild (1-3) Enoxaparin Sodium (Lovenox) 40 mg SC DAILY [facility]; Protocol Last Admin: 08/14/18 10:01 Dose: 40 mg Insulin Detemir (Levemir) 5 unit SC HS [facility] Insulin Human Regular (Humulin R Low) 0 units SC ACHS [facility]; Protocol Last Admin: 08/14/18 13:28 Dose: 3 units Ketorolac Tromethamine (Toradol) 30 mg IVP Q6H PRN PRN Reason: Pain, moderate (4-7) Last Admin: 08/14/18 08:55 Dose: 30 mg Metoclopramide HCl (Reglan) 5 mg IVP ACHS [facility] Last Admin: 08/14/18 13:28 Dose: 5 mg Ondansetron HCl (Zofran Inj) 4 mg IVP Q6H PRN PRN Reason: Nausea/Vomiting Last Admin: 08/12/18 10:04 Dose: 4 mg Oxycodone/Acetaminophen (Percocet 5/325 Mg Tab) 1 tab PO Q6H PRN PRN Reason: Pain, moderate (4-7) Stop: 08/17/18 18:07 Oxycodone/Acetaminophen (Percocet 5/325 Mg Tab) 2 tab PO Q6H PRN PRN Reason: Pain, severe (8-10) Stop: 08/17/18 18:07 Pantoprazole Sodium (Protonix Inj) 40 mg IVP Q12 [facility] Last Admin: 08/14/18 10:01 Dose: 40 mg Polyethylene Glycol (Miralax) 17 gm PO DAILY [facility] - Labs Labs: 08/14/18 06:00 08/14/18 06:00 - Constitutional Appears: Well - Head Exam Head Exam: ATRAUMATIC, NORMOCEPHALIC - ENT Exam ENT Exam: Mucous Membranes Moist, Normal Exam - Neck Exam Neck Exam: Full ROM - GI/Abdominal Exam GI & Abdominal Exam: Soft, Normal Bowel Sounds - Rectal Exam Rectal Exam: Deferred - Extremities Exam Extremities Exam: Tenderness - Back Exam Back Exam: NORMAL INSPECTION - Neurological Exam Neurological Exam: Oriented x3 - Psychiatric Exam Psychiatric exam: Normal Affect - Skin Skin Exam: Dry, Normal Color Assessment and Plan - Assessment and Plan (Free Text) Assessment: Microbiology 08/13/18 14:00 Gram Stain - Final Foot - Left Wound Culture - Preliminary Gram Pos Cocci In Clusters Impressions Abdomen Ultrasound 08/11/18 15:43 IMPRESSION: No acute findings related to/ accounting for the clinical presentation. Additional benign and/or incidental findings described above. No significant interval change compared to the prior examination(s). Chest X-Ray 08/11/18 15:43 IMPRESSION: No active disease. Abdomen X-Ray 08/11/18 19:47 IMPRESSION: No obstruction. No obvious evidence of fecal impaction. Foot MRI 08/13/18 13:59 IMPRESSION: Fracture through the base of the 5th metatarsal with diffuse marrow edema. 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 Extremity Ultrasound 08/13/18 14:35 IMPRESSION: 1. Relatively normal BARRIE and PVR examination at rest. 2. Possible right tibial occlusive disease Laboratory Results WBC 4.7 10^3/uL (4.5-11.0) 08/14/18 06:00 RBC 3.64 10^6/uL (3.5-6.1) 08/14/18 06:00 Hgb 10.9 g/dL (14.0-18.0) L 08/14/18 06:00 Hct 31.7 % (42.0-52.0) L 08/14/18 06:00 MCV 87.1 fl (80.0-105.0) 08/14/18 06:00 MCH 29.9 pg (25.0-35.0) 08/14/18 06:00 MCHC 34.4 g/dl (31.0-37.0) 08/14/18 06:00 RDW 12.2 % (11.5-14.5) 08/14/18 06:00 Plt Count 194 10^3/uL (120.0-450.0) 08/14/18 06:00 MPV 9.6 fl (7.0-11.0) 08/14/18 06:00 Gran % 58.3 % (50.0-68.0) 08/14/18 06:00 Lymph % (Auto) 28.2 % (22.0-35.0) 08/14/18 06:00 [place] % (Auto) 12.2 % (1.0-6.0) H 08/14/18 06:00 Eos % (Auto) 1.1 % (1.5-5.0) L 08/14/18 06:00 Baso % (Auto) 0.2 % (0.0-3.0) 08/14/18 06:00 Gran # 2.73 (1.4-6.5) 08/14/18 06:00 Lymph # (Auto) 1.3 (1.2-3.4) 08/14/18 06:00 [place] # (Auto) 0.6 (0.1-0.6) 08/14/18 06:00 Eos # (Auto) 0.1 (0.0-0.7) 08/14/18 06:00 Baso # (Auto) 0.01 K/mm3 (0.0-2.0) 08/14/18 06:00 ESR 80 mm/hr (0.00-15.0) H 08/13/18 15:00 pO2 40 mm/Hg (30-55) 08/11/18 20:15 VBG pH 7.44 (7.32-7.43) H 08/11/18 20:15 VBG pCO2 32.0 (40-60) L 08/11/18 20:15 VBG HCO3 21.7 mmol/l (21-28) 08/11/18 20:15 VBG Total CO2 22.7 mmol.L (22-28) 08/11/18 20:15 VBG O2 Sat (Calc) 80.2 % (40-65) H 08/11/18 20:15 VBG Base Excess -1.6 mmol/L (0.0-2.0) L 08/11/18 20:15 VBG Potassium 3.6 mmol/L (3.6-5.2) 08/11/18 20:15 Sodium 131.0 mmol/L (132-148) L 08/11/18 20:15 Chloride 98.0 mmol/L (98-107) 08/11/18 20:15 Glucose 281 mg/dl (75-110) H 08/11/18 20:15 Lactate 1.4 mmol/L (0.7-2.1) 08/11/18 20:15 FiO2 21.0 % 08/11/18 20:15 Sodium 131 mmol/L (132-148) L 08/14/18 06:00 Potassium 4.0 mmol/L (3.6-5.0) 08/14/18 06:00 Chloride 93 mmol/L (98-107) L 08/14/18 06:00 Carbon Dioxide 30 mmol/L (21-33) 08/14/18 06:00 Anion Gap 12 (10-20) 08/14/18 06:00 BUN 8 mg/dL (7-21) 08/14/18 06:00 Creatinine 0.7 mg/dl (0.8-1.5) L 08/14/18 06:00 Est GFR ( Amer) > 60 08/14/18 06:00 Est GFR (Non-Af Amer) > 60 08/14/18 06:00 POC Glucose (mg/dL) 260 mg/dL (65-110) H 08/14/18 16:17 Random Glucose 296 mg/dL (70-110) H 08/14/18 06:00 Hemoglobin A1c 10.3 % (4.2-6.5) H 08/12/18 14:10 Calcium 8.4 mg/dL (8.4-10.5) 08/14/18 06:00 Phosphorus 3.2 mg/dL (2.5-4.5) 08/12/18 06:30 Magnesium 1.9 mg/dL (1.7-2.2) 08/12/18 06:30 Iron 18 ug/dL (45-180) L 08/12/18 10:26 TIBC 195 ug/dL (261-462) L 08/12/18 10:26 % Saturation 9 % (20-55) L 08/12/18 10:26 Ferritin 330.0 ng/mL 08/12/18 14:10 Total Bilirubin 0.5 mg/dL (0.2-1.3) 08/14/18 06:00 AST 20 U/L (17-59) 08/14/18 06:00 ALT 21 U/L (7-56) 08/14/18 06:00 Alkaline Phosphatase 71 U/L (38-126) 08/14/18 06:00 Troponin I < 0.01 ng/mL 08/11/18 15:47 C-Reactive Protein 85.90 mg/L (0.0-9.9) H 08/13/18 15:00 Total Protein 6.8 g/dL (5.8-8.3) 08/14/18 06:00 Albumin 3.4 g/dL (3.0-4.8) 08/14/18 06:00 Globulin 3.5 gm/dL 08/14/18 06:00 Albumin/Globulin Ratio 1.0 (1.1-1.8) L 08/14/18 06:00 Lipase 23 U/L (23-300) 08/11/18 15:47 Vitamin B12 559 pg/mL (239-931) 08/12/18 14:10 Folate > 20.0 ng/mL 08/12/18 14:10 Venous Blood Potassium 3.6 mmol/L (3.6-5.2) 08/11/18 20:15 Urine Color Light yellow (YELLOW) 08/11/18 18:53 Urine Appearance Clear (CLEAR) 08/11/18 18:53 Urine pH 6.0 (4.7-8.0) 08/11/18 18:53 Ur Specific [place] 1.025 (1.005-1.035) 08/11/18 18:53 Urine Protein Trace mg/dL (<30 mg/dL) H 08/11/18 18:53 Urine Glucose (UA) >=1000 mg/dL (NEGATIVE) 08/11/18 18:53 Urine Ketones >=80 mg/dL (NEGATIVE) 08/11/18 18:53 Urine Blood Trace-lysed (NEGATIVE) H 08/11/18 18:53 Urine Nitrate Negative (NEGATIVE) 08/11/18 18:53 Urine Bilirubin Negative (NEGATIVE) 08/11/18 18:53 Urine Urobilinogen 0.2 E.U./dL (<1 E.U./dL) 08/11/18 18:53 Ur Leukocyte Esterase Negative Edil/uL (NEGATIVE) 08/11/18 18:53 Urine RBC 0 - 2 /hpf (0-2) 08/11/18 18:53 Urine WBC Negative /hpf (0-6) 08/11/18 18:53 Ur Epithelial Cells None /hpf (0-5) 08/11/18 18:53 Assessment/Plan 48 year old male with pmh IDDM, TIA, B/L DVT, UE DVT, Rascon's Palsy, Chronic left foot, admitted with gastroparesis, sent from Dr. Christensen 's office, with complaints of abdominal pain, nausea, vomiting, found to have osteomyelitis , clinically, with exposed bone of left foot. 1. Osteomyelitis left foot - Awaiting Picc LIne Insertion, will need 4-6 weeks of Antibiotic treatment per podiatry. Bone Bx of left foot pendingj by podiatry - Awaiting final results of wound culture. MRI of left foot inconclusive for acute osteomyelitis. - ID recommending antibx after bone bx. 2. Gastroparesis resolved Continue to monitor clinical status and follow closely PT eval pending, SW/CM planning for DC to [facility]
--- NOTE | 2018-08-14 19:35 | CP.PCM.PCO ---
Physician Communication Note - Physician Communication Note Physician Communication Note: please do not cancel physical therapy eval order, patient needs eval
[2018-08-14] MEDS ORDERED: Insulin Detemir 100 units/ml Vial (Levemir) SC SCH (22:00)
[2018-08-15 06:28] LABS: BASO # 0.01 K/mm3 (0.0-2.0); BASO % 0.2 % (0.0-3.0); EOS # 0.1 (0.0-0.7); EOS % 1.5 % (1.5-5.0); GRAN # 2.5 (1.4-6.5); GRAN % 61.9 % (50.0-68.0); MEAN CELL VOLUME 87.6 fl (80.0-105.0); MEAN CORPUSCULAR HEMOGLOBIN 30.2 pg (25.0-35.0); MEAN CORPUSCULAR HGB CONC 34.5 g/dl (31.0-37.0); MEAN PLATELET VOLUME 9.8 fl (7.0-11.0); MONO # 0.5 (0.1-0.6); MONO % 12.4 % (1.0-6.0); RBC 3.64 10^6/uL (3.5-6.1); RED CELL DISTRIBUTION WIDTH 12.2 % (11.5-14.5)
[2018-08-15] MEDS ORDERED: Insulin Lispro 1 UNITS/0.01 ML SC SCH ×3 (07:30→12:08)
[2018-08-15 07:41] LABS: ALBUMIN 3.3 g/dL (3.0-4.8); ALT/SGPT 27 U/L (7-56); AST/SGOT 11 U/L (17-59); BLOOD UREA NITROGEN 12 mg/dL (7-21); CALCIUM 8.8 mg/dL (8.4-10.5); GFR NON-AFRICAN AMERICAN > 60
[2018-08-15] MEDS: Insulin Reg-LOW-Coverage SC SCH ×4 (07:48→21:22)
--- NOTE | 2018-08-15 09:45 | CP.PCM.PN ---
<Deena Olivo - Last Filed: 08/15/18 11:10> Subjective - Date & Time of Evaluation Date of Evaluation: 08/15/18 Time of Evaluation: 09:41 - Subjective Subjective: Podiatry progress note for Dr. Christensen, 48 yo male seen and evaluated at bedside. Patient is 1 day s/p left foot bone biopsy. Patient denies any acute overnight events. Admits to mild pain in his left foot where his chronic wounds are present. Admits to being nonweight bearing. Denies fever, nausea, vomiting. Objective - Vital Signs/Intake and Output Vital Signs (last 24 hours): Temp Pulse Resp BP Pulse Ox 98.1 F 89 20 145/96 H 96 08/15/18 08:22 08/15/18 08:22 08/15/18 08:22 08/15/18 08:22 08/15/18 08:22 Intake and Output: 08/15/18 08/15/18 06:59 18:59 Intake Total 340 Output Total 900 Balance -560 - Medications Medications: Current Medications Acetaminophen (Tylenol 325mg Tab) 650 mg PO Q4H PRN PRN Reason: Fever >100.4 F Last Admin: 08/11/18 21:21 Dose: 650 mg Acetaminophen (Tylenol 325mg Tab) 650 mg PO Q6H PRN PRN Reason: Pain, Mild (1-3) Enoxaparin Sodium (Lovenox) 40 mg SC DAILY [facility]; Protocol Last Admin: 08/14/18 10:01 Dose: 40 mg Insulin Detemir (Levemir) 5 unit SC HS [facility] Last Admin: 08/14/18 21:38 Dose: 5 u Insulin Human Lispro (Humalog) 4 units SC AC [facility] Last Admin: 08/15/18 07:47 Dose: 4 units Insulin Human Regular (Humulin R Low) 0 units SC ACHS [facility]; Protocol Last Admin: 08/15/18 07:48 Dose: 4 units Ketorolac Tromethamine (Toradol) 30 mg IVP Q6H PRN PRN Reason: Pain, moderate (4-7) Last Admin: 08/15/18 07:48 Dose: 30 mg Metoclopramide HCl (Reglan) 5 mg IVP ACHS [facility] Last Admin: 08/15/18 07:55 Dose: 5 mg Ondansetron HCl (Zofran Inj) 4 mg IVP Q6H PRN PRN Reason: Nausea/Vomiting Last Admin: 08/12/18 10:04 Dose: 4 mg Oxycodone/Acetaminophen (Percocet 5/325 Mg Tab) 1 tab PO Q6H PRN PRN Reason: Pain, moderate (4-7) Stop: 08/17/18 18:07 Oxycodone/Acetaminophen (Percocet 5/325 Mg Tab) 2 tab PO Q6H PRN PRN Reason: Pain, severe (8-10) Stop: 08/17/18 18:07 Pantoprazole Sodium (Protonix Inj) 40 mg IVP Q12 [facility] Last Admin: 08/14/18 21:36 Dose: 40 mg Polyethylene Glycol (Miralax) 17 gm PO DAILY [facility] - Labs Labs: 08/15/18 05:44 08/15/18 06:30 - Constitutional Appears: Well, Non-toxic, No Acute Distress - Head Exam Head Exam: ATRAUMATIC, NORMOCEPHALIC - Eye Exam Eye Exam: Normal appearance Pupil Exam: NORMAL ACCOMODATION - ENT Exam ENT Exam: Mucous Membranes Moist - Extremities Exam Additional comments: LE focused Vasc: DP and PT pulses palpable; cap refill <3 seconds to all digits; temp gradient warm to warm from proximal to distal; edema noted at the left ankle L>M as well as about the left fifth metatarsal base Derm: R: medial malleolar wound healing with no drainage or active signs of infection L: lateral malleolar wound 2cm x 1.5 cm x 0.5 cm with no clinical signs of infection; no drainage, no streaking, mild periwound erythema, no tunneling or Probe to bone appreciated, no pus or purulent drainage; 5th met base wound 1 cm x 0.5 cm superificial with probe to bone, moderate malodor,with undermining, mild periwound erythema, minimal purulent drainage from the proximal aspect of the wound surgical site dorsal to fifth met base dry and clean, no wound dehiscence, no dr rose, sutures intact. Ortho: no pain on palpation at wound sites; muscle tone diminished Neuro: gross and protective sensation intact Assessment and Plan - Assessment and Plan (Free Text) Assessment: 48M seen and evaluated for left lateral malleolar and fifth met base chronic wounds; 1 day s/p left foot fifth metatarsal bone biopsy. Plan: Patient seen and evaluated Discussed in detail with Dr. Christensen Febrile 100.2 (08/11), absent leukocytosis B/l wounds cleansed with saline Right foot dressed with optifoam Left foot dressed with vallejo compression and well padded posterior splint. Left foot MRI ordered; fracture of the fifth met base, bone marrow edema of the fifth metatarsal Multipodus boots to be worn at all times wound cultures: staph aureus Continue physical therapy; NWB to the left lower extremity Patient will follow up with Dr. Christensen Pathology report for bone biopsy pending. Will continue to follow <Jennifer Christensen - Last Filed: 08/16/18 14:08> Objective - Vital Signs/Intake and Output Vital Signs (last 24 hours): Temp Pulse Resp BP Pulse Ox 97.5 F L 90 18 138/89 99 08/16/18 06:00 08/16/18 06:00 08/16/18 06:00 08/16/18 06:00 08/16/18 06:00 Intake and Output: 08/16/18 08/16/18 06:59 18:59 Intake Total 840 360 Balance 840 360 - Medications Medications: Current Medications Acetaminophen (Tylenol 325mg Tab) 650 mg PO Q4H PRN PRN Reason: Fever >100.4 F Last Admin: 08/15/18 16:00 Dose: 650 mg Acetaminophen (Tylenol 325mg Tab) 650 mg PO Q6H PRN PRN Reason: Pain, Mild (1-3) Dextrose (Dextrose 50% Inj) 0 ml IV STAT PRN; Protocol PRN Reason: Hypoglycemia Protocol Enoxaparin Sodium (Lovenox) 40 mg SC DAILY [facility]; Protocol Last Admin: 08/16/18 09:58 Dose: 40 mg Dextrose (Dextrose 5% In Water 1000 Ml) 1,000 mls @ 0 mls/hr IV .Q0M PRN; Protocol PRN Reason: Hypoglycemia Protocol Cefazolin Sodium (Ancef 1gm In Ns) 1 gm in 100 mls @ 100 mls/hr IVPB Q8 [facility]; Protocol Stop: 08/25/18 14:01 Last Admin: 08/16/18 13:28 Dose: 100 mls/hr Insulin Detemir (Levemir) 24 unit SC HS [facility] Insulin Human Lispro (Humalog Low) 0 units SC [facility]; Protocol Last Admin: 08/16/18 11:45 Dose: Not Given Insulin Human Lispro (Humalog) 12 units SC [facility] Last Admin: 08/16/18 11:48 Dose: 12 units Ketorolac Tromethamine (Toradol) 30 mg IVP Q6H PRN PRN Reason: Pain, moderate (4-7) Last Admin: 08/15/18 07:48 Dose: 30 mg Metoclopramide HCl (Reglan) 5 mg IVP [facility] Last Admin: 08/16/18 11:49 Dose: 5 mg Ondansetron HCl (Zofran Inj) 4 mg IVP Q6H PRN PRN Reason: Nausea/Vomiting Last Admin: 08/12/18 10:04 Dose: 4 mg Oxycodone/Acetaminophen (Percocet 5/325 Mg Tab) 1 tab PO Q6H PRN PRN Reason: Pain, moderate (4-7) Stop: 08/17/18 18:07 Oxycodone/Acetaminophen (Percocet 5/325 Mg Tab) 2 tab PO Q6H PRN PRN Reason: Pain, severe (8-10) Stop: 08/17/18 18:07 Pantoprazole Sodium (Protonix Inj) 40 mg IVP Q12 [facility] Last Admin: 08/16/18 09:58 Dose: 40 mg Polyethylene Glycol (Miralax) 17 gm PO DAILY PRN PRN Reason: Constipation - Labs Labs: 08/16/18 06:30 08/16/18 06:30 Attending/Attestation - Attestation I have personally seen and examined this patient.: Yes I have fully participated in the care of the patient.: Yes I have reviewed all pertinent clinical information, including history, physical exam and plan: Yes Notes (Text): 08/16/18 14:07 pt s/p bone biopsy and bone culture last night; fracture noted of 5th metatarsal base; even if OM there is no surgery planned since this is the attachment of the peroneal tendon and this will destabilize the foot even further; pt will need to be NWB
[2018-08-15] MEDS: Enoxaparin 40 mg Syringe SC SCH (09:52)
[2018-08-15] MEDS: POLYETHYLENE GLYCOL 3350 17 GM/Dose PACKET PO SCH (09:53)
[2018-08-15] MEDS ORDERED: Insulin Detemir 100 units/ml Vial (Levemir) SC SCH ×4 (10:51→22:00)
[2018-08-15] MEDS ORDERED: Dextrose 50% SYRINGE Inj (50 ml) IV PRN (12:06)
--- NOTE | 2018-08-15 13:52 | CP.PCM.PN ---
Subjective - Date & Time of Evaluation Date of Evaluation: 08/15/18 Time of Evaluation: 11:00 - Subjective Subjective: S&E at bedside earlier today, no acute overnight events reported. Chart reviewed. Endorse improvement of epigastric pain. Tolerating oral intake, following advise and eating small meals and chewing food well. Having BM, no diarrhea or overt GI bleeding. No N/V. Objective - Vital Signs/Intake and Output Vital Signs (last 24 hours): Temp Pulse Resp BP Pulse Ox 98.1 F 89 20 145/96 H 96 08/15/18 08:22 08/15/18 08:22 08/15/18 08:22 08/15/18 08:22 08/15/18 08:22 Intake and Output: 08/15/18 08/15/18 06:59 18:59 Intake Total 340 340 Output Total 900 900 Balance -560 -560 - Medications Medications: Current Medications Acetaminophen (Tylenol 325mg Tab) 650 mg PO Q4H PRN PRN Reason: Fever >100.4 F Last Admin: 08/11/18 21:21 Dose: 650 mg Acetaminophen (Tylenol 325mg Tab) 650 mg PO Q6H PRN PRN Reason: Pain, Mild (1-3) Dextrose (Dextrose 50% Inj) 0 ml IV STAT PRN; Protocol PRN Reason: Hypoglycemia Protocol Enoxaparin Sodium (Lovenox) 40 mg SC DAILY [facility]; Protocol Last Admin: 08/15/18 09:52 Dose: 40 mg Dextrose (Dextrose 5% In Water 1000 Ml) 1,000 mls @ 0 mls/hr IV .Q0M PRN; Protocol PRN Reason: Hypoglycemia Protocol Cefazolin Sodium (Ancef 1gm In Ns) 1 gm in 100 mls @ 100 mls/hr IVPB Q8 [facility]; Protocol Stop: 08/25/18 14:01 Insulin Detemir (Levemir) 10 unit SC HS [facility] Insulin Human Lispro (Humalog) 4 units SC AC [facility] Insulin Human Regular (Humulin R Low) 0 units SC ACHS [facility]; Protocol Last Admin: 08/15/18 12:17 Dose: Not Given Ketorolac Tromethamine (Toradol) 30 mg IVP Q6H PRN PRN Reason: Pain, moderate (4-7) Last Admin: 08/15/18 07:48 Dose: 30 mg Metoclopramide HCl (Reglan) 5 mg IVP ACHS [facility] Last Admin: 08/15/18 12:20 Dose: 5 mg Ondansetron HCl (Zofran Inj) 4 mg IVP Q6H PRN PRN Reason: Nausea/Vomiting Last Admin: 08/12/18 10:04 Dose: 4 mg Oxycodone/Acetaminophen (Percocet 5/325 Mg Tab) 1 tab PO Q6H PRN PRN Reason: Pain, moderate (4-7) Stop: 08/17/18 18:07 Oxycodone/Acetaminophen (Percocet 5/325 Mg Tab) 2 tab PO Q6H PRN PRN Reason: Pain, severe (8-10) Stop: 08/17/18 18:07 Pantoprazole Sodium (Protonix Inj) 40 mg IVP Q12 [facility] Last Admin: 08/15/18 09:53 Dose: 40 mg Polyethylene Glycol (Miralax) 17 gm PO DAILY [facility] Last Admin: 08/15/18 09:53 Dose: 17 gm - Labs Labs: 08/15/18 05:44 08/15/18 06:30 - Constitutional Appears: No Acute Distress - Eye Exam Eye Exam: Normal appearance. absent: Scleral icterus - ENT Exam ENT Exam: Mucous Membranes Moist - Neck Exam Neck Exam: Normal Inspection - Respiratory Exam Respiratory Exam: Clear to Ausculation Bilateral, NORMAL BREATHING PATTERN. absent: Respiratory Distress - Cardiovascular Exam Cardiovascular Exam: +S1, +S2 - GI/Abdominal Exam GI & Abdominal Exam: Soft, Normal Bowel Sounds. absent: Guarding, Tenderness, Rebound - Extremities Exam Extremities Exam: absent: Calf Tenderness, Pedal Edema - Neurological Exam Neurological Exam: Alert, Awake, Oriented x3 Assessment and Plan - Assessment and Plan (Free Text) Assessment: ASSESSMENT: Resolving Epigastric discomfort, abdominal US negative Gastroparesis DM type I, insulin pump TIA PLAN: diet as tolerated, continue small frequent meal/chew food well continue PPI Ct scan A&P, large gastric bezoar on short course reglan on Miralax, hold for stool>2/day Seen and discussed w/ Dr. Singh, covering Dr. Gonzalez.
--- NOTE | 2018-08-15 14:27 | CP.PCM.PN ---
<Donna Deleon - Last Filed: 08/15/18 14:16> Subjective - Date & Time of Evaluation Date of Evaluation: 08/15/18 Time of Evaluation: 14:17 - Subjective Subjective: ID progress note PGY-[address] Clark Pt complained of chills and sweat. No cough. No other acute complain Objective - Vital Signs/Intake and Output Vital Signs (last 24 hours): Temp Pulse Resp BP Pulse Ox 98.1 F 89 20 145/96 H 96 08/15/18 08:22 08/15/18 08:22 08/15/18 08:22 08/15/18 08:22 08/15/18 08:22 Intake and Output: 08/15/18 08/15/18 06:59 18:59 Intake Total 340 340 Output Total 900 900 Balance -560 -560 - Medications Medications: Current Medications Acetaminophen (Tylenol 325mg Tab) 650 mg PO Q4H PRN PRN Reason: Fever >100.4 F Last Admin: 08/11/18 21:21 Dose: 650 mg Acetaminophen (Tylenol 325mg Tab) 650 mg PO Q6H PRN PRN Reason: Pain, Mild (1-3) Dextrose (Dextrose 50% Inj) 0 ml IV STAT PRN; Protocol PRN Reason: Hypoglycemia Protocol Enoxaparin Sodium (Lovenox) 40 mg SC DAILY [facility]; Protocol Last Admin: 08/15/18 09:52 Dose: 40 mg Dextrose (Dextrose 5% In Water 1000 Ml) 1,000 mls @ 0 mls/hr IV .Q0M PRN; Protocol PRN Reason: Hypoglycemia Protocol Cefazolin Sodium (Ancef 1gm In Ns) 1 gm in 100 mls @ 100 mls/hr IVPB Q8 [facility]; Protocol Stop: 08/25/18 14:01 Insulin Detemir (Levemir) 10 unit SC HS [facility] Insulin Human Lispro (Humalog) 4 units SC AC [facility] Insulin Human Regular (Humulin R Low) 0 units SC ACHS [facility]; Protocol Last Admin: 08/15/18 12:17 Dose: Not Given Ketorolac Tromethamine (Toradol) 30 mg IVP Q6H PRN PRN Reason: Pain, moderate (4-7) Last Admin: 08/15/18 07:48 Dose: 30 mg Metoclopramide HCl (Reglan) 5 mg IVP ACHS [facility] Last Admin: 08/15/18 12:20 Dose: 5 mg Ondansetron HCl (Zofran Inj) 4 mg IVP Q6H PRN PRN Reason: Nausea/Vomiting Last Admin: 08/12/18 10:04 Dose: 4 mg Oxycodone/Acetaminophen (Percocet 5/325 Mg Tab) 1 tab PO Q6H PRN PRN Reason: Pain, moderate (4-7) Stop: 08/17/18 18:07 Oxycodone/Acetaminophen (Percocet 5/325 Mg Tab) 2 tab PO Q6H PRN PRN Reason: Pain, severe (8-10) Stop: 08/17/18 18:07 Pantoprazole Sodium (Protonix Inj) 40 mg IVP Q12 [facility] Last Admin: 08/15/18 09:53 Dose: 40 mg Polyethylene Glycol (Miralax) 17 gm PO DAILY [facility] Last Admin: 08/15/18 09:53 Dose: 17 gm - Labs Labs: 08/15/18 05:44 08/15/18 06:30 - Constitutional Appears: No Acute Distress - Head Exam Head Exam: ATRAUMATIC, NORMAL INSPECTION, NORMOCEPHALIC - Eye Exam Eye Exam: EOMI, Normal appearance, PERRL. absent: Scleral icterus Pupil Exam: NORMAL ACCOMODATION - ENT Exam ENT Exam: Mucous Membranes Moist - Neck Exam Additional comments: supple - Respiratory Exam Respiratory Exam: Clear to Ausculation Bilateral. absent: Rales, Rhonchi, Wheezes - Cardiovascular Exam Cardiovascular Exam: REGULAR RHYTHM, +S1, +S2 - GI/Abdominal Exam GI & Abdominal Exam: Soft, Tenderness (mild epigastric), Normal Bowel Sounds - Extremities Exam Extremities Exam: Pedal Edema. absent: Calf Tenderness Additional comments: LLE dressing d/c/i, skin warmer than R - Back Exam Back Exam: absent: CVA tenderness (L), CVA tenderness (R) - Neurological Exam Neurological Exam: Alert, Awake, Oriented x3 - Psychiatric Exam Psychiatric exam: Normal Affect, Normal Mood - Skin Skin Exam: Dry, Warm Assessment and Plan - Assessment and Plan (Free Text) Plan: A: Chronic diabetic foot wound, L, from prior trauma and burn, superimposed purulent cellulitis, r/o osteomyelitis (probe to bone) Hx osteomyelitis of the L foot (03/2018) klebsiella and staph aureus Hx enterococcus faecalis in blood (03/2016) DM1 on insulin pump complicated by gastropaeresis, retinopathy, peripheral neuropathy, PVD and charot's foot, avascular necrosis of talus L foot, osteomyelitis of the left foot, flores to bilateral heel Hx TIA, B/L LE DVT (not on anticoagulant) and enciso's palsy P: Continue wound care with podiatry start Ancef IV (day 1) for possible osteomyelitis, pending r/o Follow on bone biopsy result. Trend WBC Imaging/Lab: - deep tissue culture obtained in OR (08/14/18): neg x 1d - swab wound culture (08/13/18): MSSA - BARRIE: relavtively BARRIE and PVR at rest - ESR 80 - CRP 86 - MRI of foot: facture through base of 5th metatarsal with diffuse marrow edema s/r/d/w Dr Clark <Ran Clark S - Last Filed: 08/15/18 19:38> Objective - Vital Signs/Intake and Output Vital Signs (last 24 hours): Temp Pulse Resp BP Pulse Ox 100 F H 90 20 123/85 93 L 08/15/18 16:39 08/15/18 16:39 08/15/18 16:39 08/15/18 16:39 08/15/18 16:39 Intake and Output: 08/15/18 08/16/18 18:59 06:59 Intake Total 340 Output Total 900 Balance -560 - Medications Medications: Current Medications Acetaminophen (Tylenol 325mg Tab) 650 mg PO Q4H PRN PRN Reason: Fever >100.4 F Last Admin: 08/15/18 16:00 Dose: 650 mg Acetaminophen (Tylenol 325mg Tab) 650 mg PO Q6H PRN PRN Reason: Pain, Mild (1-3) Dextrose (Dextrose 50% Inj) 0 ml IV STAT PRN; Protocol PRN Reason: Hypoglycemia Protocol Enoxaparin Sodium (Lovenox) 40 mg SC DAILY [facility]; Protocol Last Admin: 08/15/18 09:52 Dose: 40 mg Dextrose (Dextrose 5% In Water 1000 Ml) 1,000 mls @ 0 mls/hr IV .Q0M PRN; Protocol PRN Reason: Hypoglycemia Protocol Cefazolin Sodium (Ancef 1gm In Ns) 1 gm in 100 mls @ 100 mls/hr IVPB Q8 [facility]; Protocol Stop: 08/25/18 14:01 Last Admin: 08/15/18 16:01 Dose: 100 mls/hr Insulin Detemir (Levemir) 10 unit SC HS [facility] Insulin Human Lispro (Humalog) 4 units SC AC [facility] Last Admin: 08/15/18 17:49 Dose: 4 units Insulin Human Regular (Humulin R Low) 0 units SC [facility]; Protocol Last Admin: 08/15/18 17:50 Dose: 3 units Ketorolac Tromethamine (Toradol) 30 mg IVP Q6H PRN PRN Reason: Pain, moderate (4-7) Last Admin: 08/15/18 07:48 Dose: 30 mg Metoclopramide HCl (Reglan) 5 mg IVP [facility] Last Admin: 08/15/18 17:51 Dose: 5 mg Ondansetron HCl (Zofran Inj) 4 mg IVP Q6H PRN PRN Reason: Nausea/Vomiting Last Admin: 08/12/18 10:04 Dose: 4 mg Oxycodone/Acetaminophen (Percocet 5/325 Mg Tab) 1 tab PO Q6H PRN PRN Reason: Pain, moderate (4-7) Stop: 08/17/18 18:07 Oxycodone/Acetaminophen (Percocet 5/325 Mg Tab) 2 tab PO Q6H PRN PRN Reason: Pain, severe (8-10) Stop: 08/17/18 18:07 Pantoprazole Sodium (Protonix Inj) 40 mg IVP Q12 [facility] Last Admin: 08/15/18 09:53 Dose: 40 mg Polyethylene Glycol (Miralax) 17 gm PO DAILY [facility] Last Admin: 08/15/18 09:53 Dose: 17 gm - Labs Labs: 08/15/18 05:44 08/15/18 06:30 Assessment and Plan - Assessment and Plan (Free Text) Plan: Infectious diseases Attending Physician Attestation Patient seen and examined, discussed with certified medical aide. I have reviewed the patient's history of present illness, past medical, social, personal and family histories, pertinent physical exam findings, course so far in this hospital admission, pertinent laboratory and imaging results. I agree with the above findings, assessment and plan. In addition, will start Cefazolin or patient with diabetic foot of the left, R/O osteomyelitis, S/P one biopsy, grew MSSA on superficial ulcers. Follow up bone biopsy results and cultures to determine course of treatment.
--- NOTE | 2018-08-15 14:34 | CP.PCM.PN ---
<Alex Aguayo - Last Filed: 08/15/18 16:49> Subjective - Date & Time of Evaluation Date of Evaluation: 08/15/18 Time of Evaluation: 08:25 - Subjective Subjective: Pt seen and examined. Pt admits to abdominal pain. Denies chest pain, SOB. Objective - Vital Signs/Intake and Output Vital Signs (last 24 hours): Temp Pulse Resp BP Pulse Ox 98.1 F 89 20 145/96 H 96 08/15/18 08:22 08/15/18 08:22 08/15/18 08:22 08/15/18 08:22 08/15/18 08:22 Intake and Output: 08/15/18 08/15/18 06:59 18:59 Intake Total 340 340 Output Total 900 900 Balance -560 -560 - Medications Medications: Current Medications Acetaminophen (Tylenol 325mg Tab) 650 mg PO Q4H PRN PRN Reason: Fever >100.4 F Last Admin: 08/11/18 21:21 Dose: 650 mg Acetaminophen (Tylenol 325mg Tab) 650 mg PO Q6H PRN PRN Reason: Pain, Mild (1-3) Dextrose (Dextrose 50% Inj) 0 ml IV STAT PRN; Protocol PRN Reason: Hypoglycemia Protocol Enoxaparin Sodium (Lovenox) 40 mg SC DAILY [facility]; Protocol Last Admin: 08/15/18 09:52 Dose: 40 mg Dextrose (Dextrose 5% In Water 1000 Ml) 1,000 mls @ 0 mls/hr IV .Q0M PRN; Protocol PRN Reason: Hypoglycemia Protocol Cefazolin Sodium (Ancef 1gm In Ns) 1 gm in 100 mls @ 100 mls/hr IVPB Q8 [facility]; Protocol Stop: 08/25/18 14:01 Insulin Detemir (Levemir) 10 unit SC HS [facility] Insulin Human Lispro (Humalog) 4 units SC AC [facility] Insulin Human Regular (Humulin R Low) 0 units SC ACHS [facility]; Protocol Last Admin: 08/15/18 12:17 Dose: Not Given Ketorolac Tromethamine (Toradol) 30 mg IVP Q6H PRN PRN Reason: Pain, moderate (4-7) Last Admin: 08/15/18 07:48 Dose: 30 mg Metoclopramide HCl (Reglan) 5 mg IVP ACHS [facility] Last Admin: 08/15/18 12:20 Dose: 5 mg Ondansetron HCl (Zofran Inj) 4 mg IVP Q6H PRN PRN Reason: Nausea/Vomiting Last Admin: 08/12/18 10:04 Dose: 4 mg Oxycodone/Acetaminophen (Percocet 5/325 Mg Tab) 1 tab PO Q6H PRN PRN Reason: Pain, moderate (4-7) Stop: 08/17/18 18:07 Oxycodone/Acetaminophen (Percocet 5/325 Mg Tab) 2 tab PO Q6H PRN PRN Reason: Pain, severe (8-10) Stop: 08/17/18 18:07 Pantoprazole Sodium (Protonix Inj) 40 mg IVP Q12 [facility] Last Admin: 08/15/18 09:53 Dose: 40 mg Polyethylene Glycol (Miralax) 17 gm PO DAILY [facility] Last Admin: 08/15/18 09:53 Dose: 17 gm - Labs Labs: 08/15/18 05:44 08/15/18 06:30 - Constitutional Appears: No Acute Distress - Head Exam Head Exam: ATRAUMATIC, NORMOCEPHALIC - Eye Exam Eye Exam: EOMI - ENT Exam ENT Exam: Mucous Membranes Moist - Neck Exam Neck Exam: Full ROM - Respiratory Exam Respiratory Exam: Clear to Ausculation Bilateral, NORMAL BREATHING PATTERN. absent: Accessory Muscle Use, Respiratory Distress - Cardiovascular Exam Cardiovascular Exam: +S1, +S2. absent: Diastolic murmur, Murmur - GI/Abdominal Exam GI & Abdominal Exam: Soft, Normal Bowel Sounds - Extremities Exam Extremities Exam: Full ROM. absent: Pedal Edema - Neurological Exam Neurological Exam: Alert, Awake, Oriented x3 - Psychiatric Exam Psychiatric exam: Normal Affect, Normal Mood - Skin Skin Exam: Dry, Intact, Warm Assessment and Plan - Assessment and Plan (Free Text) Assessment: Pt is a 48yo male with past medical history of DM, TIA, rascon's palsy, DVT, L chr onic foot wound, L charcot ankle who was admitted for abdominal pain. Plan: Clinical Osteomyolitis - MRI: fracture through the base of the 5th metatarsal with diffuse marrow edema. Chronic collapse and fragmentation of the talus - BARRIE: normal BARRIE and PVR, possible right tibial occlusive disease - bone biopsy report pending - Podiatry, Dr. Christensen Abdominal pain, improving - HHD, advance diet as tolerated - Zofran prn - Toradol prn - Reglan - GI consulted DM - ISS low - levemir 10 HS - HA1C 10.3 - Follow up with Dr. Hudson as outpatient Hx of DVT - Lovenox 40 SC Anemia - Hgb 11 - likely anemia of chronic disease Pt seen, examined, assessment, and plan discussed with Dr Janeen Aguayo PGY1, Internal Medicine Resident <Janeen Kemp R - Last Filed: 08/16/18 11:12> Objective - Vital Signs/Intake and Output Vital Signs (last 24 hours): Temp Pulse Resp BP Pulse Ox 97.5 F L 90 18 138/89 99 08/16/18 06:00 08/16/18 06:00 08/16/18 06:00 08/16/18 06:00 08/16/18 06:00 Intake and Output: 08/16/18 08/16/18 06:59 18:59 Intake Total 840 Balance 840 - Medications Medications: Current Medications Acetaminophen (Tylenol 325mg Tab) 650 mg PO Q4H PRN PRN Reason: Fever >100.4 F Last Admin: 08/15/18 16:00 Dose: 650 mg Acetaminophen (Tylenol 325mg Tab) 650 mg PO Q6H PRN PRN Reason: Pain, Mild (1-3) Dextrose (Dextrose 50% Inj) 0 ml IV STAT PRN; Protocol PRN Reason: Hypoglycemia Protocol Enoxaparin Sodium (Lovenox) 40 mg SC DAILY [facility]; Protocol Last Admin: 08/16/18 09:58 Dose: 40 mg Dextrose (Dextrose 5% In Water 1000 Ml) 1,000 mls @ 0 mls/hr IV .Q0M PRN; Protocol PRN Reason: Hypoglycemia Protocol Cefazolin Sodium (Ancef 1gm In Ns) 1 gm in 100 mls @ 100 mls/hr IVPB Q8 [facility]; Protocol Stop: 08/25/18 14:01 Last Admin: 08/16/18 04:59 Dose: 100 mls/hr Insulin Detemir (Levemir) 24 unit SC HS [facility] Insulin Human Lispro (Humalog Low) 0 units SC ACHS [facility]; Protocol Last Admin: 08/16/18 08:25 Dose: Not Given Insulin Human Lispro (Humalog) 12 units SC AC [facility] Ketorolac Tromethamine (Toradol) 30 mg IVP Q6H PRN PRN Reason: Pain, moderate (4-7) Last Admin: 08/15/18 07:48 Dose: 30 mg Metoclopramide HCl (Reglan) 5 mg IVP ACHS [facility] Last Admin: 08/16/18 08:25 Dose: 5 mg Ondansetron HCl (Zofran Inj) 4 mg IVP Q6H PRN PRN Reason: Nausea/Vomiting Last Admin: 08/12/18 10:04 Dose: 4 mg Oxycodone/Acetaminophen (Percocet 5/325 Mg Tab) 1 tab PO Q6H PRN PRN Reason: Pain, moderate (4-7) Stop: 08/17/18 18:07 Oxycodone/Acetaminophen (Percocet 5/325 Mg Tab) 2 tab PO Q6H PRN PRN Reason: Pain, severe (8-10) Stop: 08/17/18 18:07 Pantoprazole Sodium (Protonix Inj) 40 mg IVP Q12 [facility] Last Admin: 08/16/18 09:58 Dose: 40 mg Polyethylene Glycol (Miralax) 17 gm PO DAILY PRN PRN Reason: Constipation - Labs Labs: 08/16/18 06:30 08/16/18 06:30 Attending/Attestation - Attestation I have personally seen and examined this patient.: Yes I have fully participated in the care of the patient.: Yes I have reviewed all pertinent clinical information, including history, physical exam and plan: Yes Notes (Text): Patient seen and examined by me with resident at 11:25 AM on 08/15/18. Case including HPI, physical exam, and assessment and plan discussed with resident. Agree with above with following additions/corrections. Patient is a 48-year-old male with past medical history significant for type 1 diabetes on insulin pump, osteomyelitis of left foot, TIA, bilateral lower extremity DVT, and Rascon's palsy that presented to the emergency room for 1 week history of abdominal pain and 1 day history of nonbloody vomiting. Patient states he is feels better today. He states abdominal pain is dull today and improved. No nausea or vomiting. Tolerating diet. States he fot PICC line placed earlier in his left arm but believes it's not working and states that he PICC line is re-evaluating it. He denies pain in his left lower extremity. No chest pain or shortness of breath. No headaches or dizziness. No lightheadedness. No change in vision. No dysuria. No fevers or chills. Patient is having bowel movements now. Physical exam: General: Awake and alert, lying in bed in no acute distress. HEENT: Normocephalic, atraumatic, Extraocular muscles intact, pupils equal and reactive, no scleral icterus. Oropharynx is pink and moist. No pharyngeal erythema or exudate appreciated. Neck is supple. Cardiovascular: Normal rhythm. Normal S1 and S2. No murmus, rubs, or gallops appreciated. Pulmonary: Normal respiratory effort. No rhonchi, rales, or wheezing apprec iated. Gastrointestinal: Soft. Nondistended. Improved generalized tenderness. Positive bowel sounds all 4 quadrants. No guarding. Musculoskeletal: Moves all extremities. No calf tenderness. Dressing left lower extremity clean, dry and intact. Central nervous system: AAO x3, CN2-12 grossly intact. Dermatologic: Skin warm and dry. Assessment and plan: Patient is a 48-year-old male with past medical history significant for type 1 diabetes on insulin pump, osteomyelitis of left foot, TIA, bilateral lower extremity DVT, and Rascon's palsy that presented to the emergency room for 1 week history of abdominal pain and 1 day history of nonbloody vomiting. 1. Left foot ulcer. Dressing in place. S/P bone biopsy of left fifth metatarsal. Results pending. ID following, recommendations appreciated. Started on Ancef. No leukocytosis. Patient afebrile. Podiatry following, recommendations appreciated. Left foot MRI per radiologist showed fracture through the base of the 5th metatarsal with diffuse marrow edema, chronic collapse and fragmentation of the talus. Lower extremity BARRIE exam per radiologist showed relatively normal BARRIE and PVR exam at rest, possible right tibial occlusive disease. Pulses intact on right. Continue care as per podiatry. 2. Nausea, vomiting, and abdominal pain. Likely gastroparesis secondary to uncontrolled DM type 1. Improving. Patient advised to eat small meals. GI Following, recommendaitons appreciated. Diet advanced. Continue Reglan ACHS per GI. Abdominal ultrasound radiologist showed no acute findings related to/accounting for her clinical presentation. Abdominal x-ray per radiologist showed no obstruction, no obvious evidence of fecal impaction. Per GI, patient has had multiple EGDs consistent with chronic gastritis, esophagitis. 3. DM type 1, uncontrolled. Patient uses insulin pump at home. HgbA1C 10.3. Continue insulin sliding scale. Bedtime levemir increased. Lispro AC added. Endocrinology consulted, follow up recommendations. Continue to monitor accuchecks. Per patient, his insulin was adjusted by his doctor in July. 4. Anemia. Appears to be chronic. H&H stable. No acute signs of bleeding. Continue to monitor CBC. Iron 18, TIBC 195, % saturation 9, ferritin 330. 5. History of DVT. Per patient, he completed treatment and is no longer on anticoagulation. 6. GI/DVT prophylaxis. Protonix/Lovenox 7. Patient is a full code. Case was discussed in detail with patient regarding current diagnosis and treatment plan. All questions answered.
[2018-08-15] MEDS: ceFAZolin 1 gm in NS 1 GM/100 ML BAG IVPB SCH ×2 (16:01→21:20)
--- NOTE | 2018-08-15 16:07 | CP.PCM.PCO ---
Physician Communication Note - Physician Communication Note Physician Communication Note: Awaiting bone bx left foot,results likely Saturday,wound cx pos Staph Aureus, Assessment/Plan Progress Note - Assessment/Plan Assessment (Free Text): patient awaiting acceptance to [facility] , will need 4-6 weeks of antibiotics for clinical osteomyelits. Midline inserted via left arm, is functional and flushing as per [facility] team nurse, could not insert PiCC , if >28 days IV antibiotics needed, consider insertion of midline at [facility] facility. Plan- Awaiting final ID sensitivity of wound cx results, recs Antibiotics per I.D, and awaiting bone bx results. - Problems Patient Problems: Problem List (Active/Current) Problem Status Onset Code Failure of outpatient treatment Acute Z78.9 Gastroparesis due to DM Acute E11.43, K31.84 Hyperglycemia without ketosis Acute R73.9 Intractable nausea and vomiting Acute R11.2
[2018-08-15] MEDS ORDERED: Iohexol 240 (50 ml) ONE (20:23)
[2018-08-16] MEDS: Insulin Lispro (humaLOG) LOW Coverage SC SCH ×5 (02:22→22:53)
--- NOTE | 2018-08-16 03:54 | CON ---
DATE: 08/15/2018 ENDOCRINOLOGY CONSULT LOCATION: Room 364. HISTORY OF PRESENT ILLNESS: This is a 48-year-old male with known history of type 1 insulin-dependent diabetes, currently on an insulin pump, and admitted here with diffuse abdominal pain and associated dyspepsia and vomiting with underlying diabetic gastroparesis and is now being referred for diabetic evaluation because of persistent glycemic fluctuations as noted thereof. PAST MEDICAL HISTORY: The patient has been diagnosed with type 1 diabetes in 2004, has been on an [employer] insulin pump with persistently elevated A1c values, the last one of which was 10.3%. History of diabetic retinopathy, polyneuropathy, and a previous transient ischemic event with underlying peripheral arterial disease and vasculopathy. He had a previous Rascon's palsy that resolved spontaneously as noted. History of diabetic gastroparesis with multiple admissions for exacerbations of the same. He also has a Charcot foot with recent avascular necrosis of the left foot and also previous osteomyelitis of the left foot diagnosed in 03/2018. He has also sustained flores to both heels associated with prior exposure to asphalt and has been followed very closely by Podiatry on the outpatient with debridement and antibiotic therapy as given. FAMILY HISTORY: Positive for diabetes and hypertension. SOCIAL HISTORY: The patient has a supportive family. No known substance use. REVIEW OF SYSTEMS: As mentioned above, admits to generalized body weakness with episodic bouts of dizziness and lightheadedness and suboptimal energy level. No chest pains or palpitations. His oral intake has been variable with nausea, dyspepsia, and intermittent upper abdominal pain. Also admits to polyuria, nocturia, and polydipsia. Moreover, also admits to lower extremity painful paresthesias. PHYSICAL EXAMINATION: GENERAL: This is an average built male in no apparent distress. VITAL SIGNS: Blood pressure of 140/80; pulse of 70 beats per minute, regular; temperature 98; respirations 20; height is 5 feet 4 inches; weight is 124 pounds. HEENT: Head normocephalic. Eyes anicteric with pink conjunctivae. Funduscopy not possible at this time. Ears, nose, and throat otherwise normal. NECK: Supple. Thyroid gland is normal size. No carotid bruits or cervical adenopathy. CARDIOPULMONARY: Some adynamic precordium. S1, S2 is rapid and regular. LUNGS: Clear to auscultation. ABDOMEN: Flat, soft with positive bowel sounds. EXTREMITIES: No peripheral edema. Pulses are +2 bilaterally. The heels in both feet have been noted with also a necrotic ulcer in the fifth metatarsal of the left foot. LABORATORIES: Chemistries, BUN of 12, sodium 133, potassium 5, chloride 97, CO2 of 31, glucose 419, and creatinine 0.7. His glucose levels have been erratic and fluctuating, ranging from 76 to 256 and 311 and 376 mg/dL. ASSESSMENT: This is a 48-year-old male with uncontrolled and decompensated type 1 insulin-dependent diabetes with extremes of glycemic fluctuations and suboptimal metabolic control related to a subtherapeutic insulin regimen as noted. 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 PLAN OF MANAGEMENT: We will modify his current insulin regimen and optimize his basal and bolus insulin dose regimen as ordered. We will increase the Humalog to 80 units subcu t.i.d. before meals and we will titrate incrementally to optimize metabolic control. We will also modify the coverage scale to a very low dose algorithm to obviate hypoglycemia, and detailed orders have been given. Moreover, we will modify his basal insulin and increase the Levemir to 16 units subcu at bedtime daily as given. We will titrate incrementally as indicated to optimize metabolic control. We will also obtain a hemoglobin A1c if not already done and also baseline thyroid function studies and a lipid panel as ordered. We will follow. Chrystal Butler MD
[2018-08-16] MEDS: ceFAZolin 1 gm in NS 1 GM/100 ML BAG IVPB SCH ×3 (04:59→23:00)
[2018-08-16 07:10] LABS: BASO # 0.01 K/mm3 (0.0-2.0); BASO % 0.1 % (0.0-3.0); EOS # 0.2 (0.0-0.7); EOS % 2.2 % (1.5-5.0); GRAN # 5.28 (1.4-6.5); GRAN % 71.7 % (50.0-68.0); HEMOGLOBIN 10.4 g/dL (14.0-18.0); LYMPH # 1.2 (1.2-3.4); LYMPH % 16.4 % (22.0-35.0); MEAN CELL VOLUME 87.3 fl (80.0-105.0); MEAN CORPUSCULAR HGB CONC 34.3 g/dl (31.0-37.0); MEAN PLATELET VOLUME 9.7 fl (7.0-11.0); MONO # 0.7 (0.1-0.6); MONO % 9.6 % (1.0-6.0); RBC 3.47 10^6/uL (3.5-6.1); RED CELL DISTRIBUTION WIDTH 12.1 % (11.5-14.5); WHITE BLOOD COUNT 7.4 10^3/uL (4.5-11.0)
[2018-08-16 07:23] LABS: LDL CHOLESTEROL 107 mg/dL (0-129)
[2018-08-16 07:29] LABS: ALBUMIN 3.4 g/dL (3.0-4.8); ALT/SGPT 21 U/L (7-56); AST/SGOT 16 U/L (17-59); BLOOD UREA NITROGEN 13 mg/dL (7-21); CALCIUM 8.4 mg/dL (8.4-10.5); GFR NON-AFRICAN AMERICAN > 60; HDL CHOLESTEROL 23 mg/dL (29-60)
[2018-08-16] MEDS ORDERED: Insulin Lispro 1 UNITS/0.01 ML SC SCH (07:30)
--- NOTE | 2018-08-16 08:17 | CP.PCM.PN ---
<ChanningAlejandra perea - Last Filed: 08/16/18 08:13> Subjective - Date & Time of Evaluation Date of Evaluation: 08/16/18 Time of Evaluation: 08:14 - Subjective Subjective: Podiatry Progress Note - Dr. Christensen/Pamela 48 yo male seen and evaluated at bedside this morning with Dr. Santiago, 2 days s/p left foot bone biopsy. Patient denies any acute overnight events. Says he slept well and the pain to his left foot has decreased. Denies fever, nausea, vomiting, chills. Objective - Vital Signs/Intake and Output Vital Signs (last 24 hours): Temp Pulse Resp BP Pulse Ox 100 F H 90 20 123/85 93 L 08/15/18 16:39 08/15/18 16:39 08/15/18 16:39 08/15/18 16:39 08/15/18 16:39 Intake and Output: 08/16/18 08/16/18 06:59 18:59 Intake Total 840 Balance 840 - Medications Medications: Current Medications Acetaminophen (Tylenol 325mg Tab) 650 mg PO Q4H PRN PRN Reason: Fever >100.4 F Last Admin: 08/15/18 16:00 Dose: 650 mg Acetaminophen (Tylenol 325mg Tab) 650 mg PO Q6H PRN PRN Reason: Pain, Mild (1-3) Dextrose (Dextrose 50% Inj) 0 ml IV STAT PRN; Protocol PRN Reason: Hypoglycemia Protocol Enoxaparin Sodium (Lovenox) 40 mg SC DAILY [facility]; Protocol Last Admin: 08/15/18 09:52 Dose: 40 mg Dextrose (Dextrose 5% In Water 1000 Ml) 1,000 mls @ 0 mls/hr IV .Q0M PRN; Protocol PRN Reason: Hypoglycemia Protocol Cefazolin Sodium (Ancef 1gm In Ns) 1 gm in 100 mls @ 100 mls/hr IVPB Q8 [facility]; Protocol Stop: 08/25/18 14:01 Last Admin: 08/16/18 04:59 Dose: 100 mls/hr Insulin Detemir (Levemir) 16 unit SC HS [facility] Last Admin: 08/16/18 02:23 Dose: Not Given Insulin Human Lispro (Humalog Low) 0 units SC ACHS [facility]; Protocol Last Admin: 08/16/18 02:22 Dose: Not Given Insulin Human Lispro (Humalog) 8 units SC [facility] Ketorolac Tromethamine (Toradol) 30 mg IVP Q6H PRN PRN Reason: Pain, moderate (4-7) Last Admin: 08/15/18 07:48 Dose: 30 mg Metoclopramide HCl (Reglan) 5 mg IVP ACHS [facility] Last Admin: 08/15/18 21:20 Dose: 5 mg Ondansetron HCl (Zofran Inj) 4 mg IVP Q6H PRN PRN Reason: Nausea/Vomiting Last Admin: 08/12/18 10:04 Dose: 4 mg Oxycodone/Acetaminophen (Percocet 5/325 Mg Tab) 1 tab PO Q6H PRN PRN Reason: Pain, moderate (4-7) Stop: 08/17/18 18:07 Oxycodone/Acetaminophen (Percocet 5/325 Mg Tab) 2 tab PO Q6H PRN PRN Reason: Pain, severe (8-10) Stop: 08/17/18 18:07 Pantoprazole Sodium (Protonix Inj) 40 mg IVP Q12 [facility] Last Admin: 08/15/18 21:20 Dose: 40 mg Polyethylene Glycol (Miralax) 17 gm PO DAILY [facility] Last Admin: 08/15/18 09:53 Dose: 17 gm - Labs Labs: 08/16/18 06:30 08/16/18 06:30 - Constitutional Appears: Well, Non-toxic, No Acute Distress - Extremities Exam Additional comments: Lower extremity focused exam: Left lower extremity posterior splint clean dry and intact Right foot dressings in place, clean dry and intact No strikethrough present on bandages - Neurological Exam Neurological Exam: Alert, Awake, Oriented x3 - Psychiatric Exam Psychiatric exam: Normal Affect, Normal Mood Assessment and Plan - Assessment and Plan (Free Text) Assessment: 48 y/o male with 1) left foot non-healing ulcer with possible osteomyelitis, 2 days s/p left foot fifth metatarsal bone biopsy and 2) left foot 5th metatarsal base fracture Plan: Patient seen and evaluated with Dr. Santiago Left foot posterior splint remains in place - to remain clean, dry and intact at all times Left foot MRI shows fracture of the fifth met base, bone marrow edema of the fifth metatarsal Multipodus boots to be worn at all times in bed to RLE Wound cultures: staph aureus Await OR pathology from bone biopsy performed on 08/14/18 Continue physical therapy; NWB to the left lower extremity Patient will follow up with Dr. Christensen in office upon discharge Will continue to follow <Bassem Santiago - Last Filed: 08/17/18 20:25> Objective - Vital Signs/Intake and Output Vital Signs (last 24 hours): Temp Pulse Resp BP Pulse Ox 98.1 F 87 19 100/65 96 08/17/18 17:53 08/17/18 17:53 08/17/18 17:53 08/17/18 17:53 08/17/18 17:53 Intake and Output: 08/17/18 08/18/18 18:59 06:59 Intake Total 2420 Output Total 2700 Balance -280 - Medications Medications: Current Medications Acetaminophen (Tylenol 325mg Tab) 650 mg PO Q4H PRN PRN Reason: Fever >100.4 F Last Admin: 08/15/18 16:00 Dose: 650 mg Acetaminophen (Tylenol 325mg Tab) 650 mg PO Q6H PRN PRN Reason: Pain, Mild (1-3) Dextrose (Dextrose 50% Inj) 0 ml IV STAT PRN; Protocol PRN Reason: Hypoglycemia Protocol Enoxaparin Sodium (Lovenox) 40 mg SC DAILY [facility]; Protocol Last Admin: 08/17/18 10:10 Dose: 40 mg Dextrose (Dextrose 5% In Water 1000 Ml) 1,000 mls @ 0 mls/hr IV .Q0M PRN; Protocol PRN Reason: Hypoglycemia Protocol Cefazolin Sodium (Ancef 1gm In Ns) 1 gm in 100 mls @ 100 mls/hr IVPB Q8 [facility]; Protocol Stop: 08/25/18 14:01 Last Admin: 08/17/18 13:17 Dose: 100 mls/hr Insulin Detemir (Levemir) 20 unit SC HS [facility] Insulin Human Lispro (Humalog Low) 0 units SC ACHS [facility]; Protocol Last Admin: 08/17/18 12:07 Dose: Not Given Insulin Human Lispro (Humalog) 8 units SC AC [facility] Last Admin: 08/17/18 16:24 Dose: 8 unit Ketorolac Tromethamine (Toradol) 30 mg IVP Q6H PRN PRN Reason: Pain, moderate (4-7) Last Admin: 08/15/18 07:48 Dose: 30 mg Ondansetron HCl (Zofran Inj) 4 mg IVP Q6H PRN PRN Reason: Nausea/Vomiting Last Admin: 08/12/18 10:04 Dose: 4 mg Pantoprazole Sodium (Protonix Ec Tab) 40 mg PO 0600,1600 [facility] Last Admin: 08/17/18 16:24 Dose: 40 mg Polyethylene Glycol (Miralax) 17 gm PO DAILY PRN PRN Reason: Constipation - Labs Labs: 08/17/18 05:30 08/17/18 05:30 Attending/Attestation - Attestation I have personally seen and examined this patient.: Yes I have fully participated in the care of the patient.: Yes I have reviewed all pertinent clinical information, including history, physical exam and plan: Yes
[2018-08-16] MEDS: Enoxaparin 40 mg Syringe SC SCH (09:58)
[2018-08-16] MEDS: POLYETHYLENE GLYCOL 3350 17 GM/Dose PACKET PO SCH (09:59)
[2018-08-16] MEDS ORDERED: POLYETHYLENE GLYCOL 3350 17 GM/Dose PACKET PO PRN (10:21)
--- NOTE | 2018-08-16 10:38 | PN ---
DATE: 08/16/2018 SUBJECTIVE: Patient is in bed, in no acute distress, nontoxic. No fevers and chills. OBJECTIVE: GENERAL: He is awake and alert, was seen earlier this morning. VITAL SIGNS: Temperature is 97 and T-max yesterday was 100, blood pressure is 138/80, respiratory rate of 16. HEENT: Unremarkable. NECK: Supple. LUNGS: Have decreased breath sounds. HEART: Normal S1, S2. ABDOMEN: Soft. LABORATORY EXAMINATION: Reveals the patient's sed rate is 80, white count of 7.4. Chemistries are noted and urinalysis is noted. Microbiology reveals the staph aureus from the left foot culture. It is sensitive oxacillin staph aureus and the patient is on cefazolin currently. 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 The patient did have an MRI of the foot on 08/13 which showed fracture and she had a chronic collapsed fragments of the talus. We will follow with you. Stephen Gonzáles MD
--- NOTE | 2018-08-16 11:11 | PN ---
DATE: 08/16/2018 ENDO FOLLOWUP NOTE LOCATION: Room 364. HISTORY OF PRESENT ILLNESS: This is a 48-year-old male with recent uncontrolled type 1 insulin-dependent diabetes, previously on an insulin pump infusion and now undergoing IV antibiotic management and debridement of left foot osteomyelitis and is being followed closely for metabolic management because of recent hyperglycemic accelerations as noted thereof. His glucose levels overnight have ranged from 260-311 mg/dl. His chemistry showed a BUN of 13, sodium 129, potassium 4.8, chloride 92, CO2 of 30, glucose 314 and creatinine 0.7. His hemoglobin A1c has been reported as 10.3% which is quite elevated and indicative of suboptimal metabolic control of his diabetic condition even prior to this admission. ASSESSMENT: This is a 48-year-old male with uncontrolled and decompensated type 1 insulin-dependent diabetes presenting here with lower left foot osteomyelitis and bilateral heel burn affected and necrosis and currently undergoing debridement on IV antibiotic management with the recent bone biopsy of the fifth metatarsal in the left foot as noted. He also has diabetic microvascular complications of retinopathy and polyneuropathy with diabetic macrovascular complications of cerebrovascular disease with peripheral arterial disease and vasculopathy. PLAN: Plan of management will modify once again his basal and bolus insulin regimen to optimize metabolic control. We will titrate this long-acting insulin given as basal insulin with Levemir at 24 units subcu at bedtime daily to start tonight. We will also titrate his prandial insulin with Humalog to be given at a higher dosing of 12 units 3 times daily before meals to start at lunchtime today as ordered. We will modify the coverage scale to obviate hypoglycemia and detailed orders have been given. We will obtain serial chemistries and supplement accordingly as needed. We will reinforce diabetic education and dietary instructions also at the time of this admission. We will follow and advise accordingly. Chrystal Butler MD
--- NOTE | 2018-08-16 11:42 | CP.PCM.PN ---
<Alex Aguayo - Last Filed: 08/16/18 11:42> Subjective - Date & Time of Evaluation Date of Evaluation: 08/16/18 Time of Evaluation: 09:00 - Subjective Subjective: Pt seen and examined this morning at bedside. Pt reports some abdominal pain. Denies chest pain, or SOB. Objective - Vital Signs/Intake and Output Vital Signs (last 24 hours): Temp Pulse Resp BP Pulse Ox 97.5 F L 90 18 138/89 99 08/16/18 06:00 08/16/18 06:00 08/16/18 06:00 08/16/18 06:00 08/16/18 06:00 Intake and Output: 08/16/18 08/16/18 06:59 18:59 Intake Total 840 Balance 840 - Medications Medications: Current Medications Acetaminophen (Tylenol 325mg Tab) 650 mg PO Q4H PRN PRN Reason: Fever >100.4 F Last Admin: 08/15/18 16:00 Dose: 650 mg Acetaminophen (Tylenol 325mg Tab) 650 mg PO Q6H PRN PRN Reason: Pain, Mild (1-3) Dextrose (Dextrose 50% Inj) 0 ml IV STAT PRN; Protocol PRN Reason: Hypoglycemia Protocol Enoxaparin Sodium (Lovenox) 40 mg SC DAILY [facility]; Protocol Last Admin: 08/16/18 09:58 Dose: 40 mg Dextrose (Dextrose 5% In Water 1000 Ml) 1,000 mls @ 0 mls/hr IV .Q0M PRN; Protocol PRN Reason: Hypoglycemia Protocol Cefazolin Sodium (Ancef 1gm In Ns) 1 gm in 100 mls @ 100 mls/hr IVPB Q8 [facility]; Protocol Stop: 08/25/18 14:01 Last Admin: 08/16/18 04:59 Dose: 100 mls/hr Insulin Detemir (Levemir) 24 unit SC HS [facility] Insulin Human Lispro (Humalog Low) 0 units SC ACHS [facility]; Protocol Last Admin: 08/16/18 08:25 Dose: Not Given Insulin Human Lispro (Humalog) 12 units SC AC [facility] Ketorolac Tromethamine (Toradol) 30 mg IVP Q6H PRN PRN Reason: Pain, moderate (4-7) Last Admin: 08/15/18 07:48 Dose: 30 mg Metoclopramide HCl (Reglan) 5 mg IVP ACHS [facility] Last Admin: 08/16/18 08:25 Dose: 5 mg Ondansetron HCl (Zofran Inj) 4 mg IVP Q6H PRN PRN Reason: Nausea/Vomiting Last Admin: 08/12/18 10:04 Dose: 4 mg Oxycodone/Acetaminophen (Percocet 5/325 Mg Tab) 1 tab PO Q6H PRN PRN Reason: Pain, moderate (4-7) Stop: 08/17/18 18:07 Oxycodone/Acetaminophen (Percocet 5/325 Mg Tab) 2 tab PO Q6H PRN PRN Reason: Pain, severe (8-10) Stop: 08/17/18 18:07 Pantoprazole Sodium (Protonix Inj) 40 mg IVP Q12 [facility] Last Admin: 08/16/18 09:58 Dose: 40 mg Polyethylene Glycol (Miralax) 17 gm PO DAILY PRN PRN Reason: Constipation - Labs Labs: 08/16/18 06:30 08/16/18 06:30 - Constitutional Appears: No Acute Distress - Head Exam Head Exam: ATRAUMATIC, NORMOCEPHALIC - Eye Exam Eye Exam: EOMI - ENT Exam ENT Exam: Mucous Membranes Moist - Neck Exam Neck Exam: Full ROM - Respiratory Exam Respiratory Exam: Clear to Ausculation Bilateral, NORMAL BREATHING PATTERN. absent: Accessory Muscle Use - Cardiovascular Exam Cardiovascular Exam: Irregular Rhythm, +S1, +S2 - GI/Abdominal Exam GI & Abdominal Exam: Soft, Tenderness, Normal Bowel Sounds - Extremities Exam Extremities Exam: Full ROM. absent: Pedal Edema - Neurological Exam Neurological Exam: Alert, Awake, Oriented x3 - Psychiatric Exam Psychiatric exam: Normal Affect, Normal Mood - Skin Skin Exam: Dry, Intact, Normal Color Assessment and Plan - Assessment and Plan (Free Text) Assessment: Pt is a 48yo male with past medical history of DM, TIA, rascon's palsy, DVT, L chronic foot wound, L charcot ankle who was admitted for abdominal pain. Plan: Clinical Osteomyolitis - MRI: fracture through the base of the 5th metatarsal with diffuse marrow edema. Chronic collapse and fragmentation of the talus - BARRIE: normal BARRIE and PVR, possible right tibial occlusive disease - bone biopsy report 08/14/18, pending - midline inserted via left arm, functional - continue physical therapy - Podiatry, Dr. Christensen rec multipodus boots to be worn at all times in bed to RLE Abdominal pain, improving - Diabetic diet, advance diet as tolerated - Reglan - GI consulted DM - ISS low - levemir 10 HS - HA1C 10.3 - Follow up with Dr. Hudson as outpatient Hx of DVT - Lovenox 40 SC Anemia - Hgb 11 Dispo: likely discharge to [facility] on Saturday, will need 4-6 weeks of antibiotics for clinical osteomyelitis Pt seen, examined, assessment, and plan discussed with Dr Janeen Aguayo PGY1, Internal Medicine Resident <Janeen Kemp R - Last Filed: 08/18/18 18:31> Objective - Vital Signs/Intake and Output Vital Signs (last 24 hours): Temp Pulse Resp BP Pulse Ox 98.1 F 90 18 104/71 100 08/18/18 16:56 08/18/18 16:56 08/18/18 16:56 08/18/18 16:56 08/18/18 16:56 Intake and Output: 08/18/18 08/18/18 06:59 18:59 Intake Total 320 320 Output Total 1550 1550 Balance -1230 -1230 - Medications Medications: Current Medications Acetaminophen (Tylenol 325mg Tab) 650 mg PO Q4H PRN PRN Reason: Fever >100.4 F Last Admin: 08/15/18 16:00 Dose: 650 mg Acetaminophen (Tylenol 325mg Tab) 650 mg PO Q6H PRN PRN Reason: Pain, Mild (1-3) Dextrose (Dextrose 50% Inj) 0 ml IV STAT PRN; Protocol PRN Reason: Hypoglycemia Protocol Enoxaparin Sodium (Lovenox) 40 mg SC DAILY [facility]; Protocol Last Admin: 08/18/18 09:42 Dose: 40 mg Dextrose (Dextrose 5% In Water 1000 Ml) 1,000 mls @ 0 mls/hr IV .Q0M PRN; Protocol PRN Reason: Hypoglycemia Protocol Linezolid (Zyvox 600mg/300ml D5w) 600 mg in 300 mls @ 200 mls/hr IVPB Q12 [facility]; Protocol Stop: 08/26/18 23:29 Last Admin: 08/18/18 11:27 Dose: 200 mls/hr Insulin Detemir (Levemir) 20 unit SC HS [facility] Last Admin: 08/17/18 22:32 Dose: 20 units Insulin Human Lispro (Humalog Low) 0 units SC ACHS [facility]; Protocol Last Admin: 08/18/18 17:49 Dose: Not Given Insulin Human Lispro (Humalog) 8 units SC AC [facility] Last Admin: 08/18/18 17:49 Dose: Not Given Ondansetron HCl (Zofran Inj) 4 mg IVP Q6H PRN PRN Reason: Nausea/Vomiting Last Admin: 08/12/18 10:04 Dose: 4 mg Pantoprazole Sodium (Protonix Ec Tab) 40 mg PO 0600,1600 [facility] Last Admin: 08/18/18 17:50 Dose: 40 mg Polyethylene Glycol (Miralax) 17 gm PO DAILY PRN PRN Reason: Constipation - Labs Labs: 08/18/18 06:00 08/18/18 06:00 Attending/Attestation - Attestation I have personally seen and examined this patient.: Yes I have fully participated in the care of the patient.: Yes I have reviewed all pertinent clinical information, including history, physical exam and plan: Yes Notes (Text): Patient seen and examined by me with resident at 9:10 AM on 08/16/18. Case including HPI, physical exam, and assessment and plan discussed with resident. Agree with above with following additions/corrections. Patient is a 48-year-old male with past medical history significant for type 1 diabetes on insulin pump, osteomyelitis of left foot, TIA, bilateral lower extremity DVT, and Rascon's palsy that presented to the emergency room for 1 week history of abdominal pain and 1 day history of nonbloody vomiting. Patient states he is feeling ok. States he is tolerating his diet. Still has intermittent abdominal pain. No nausea or vomiting. Patient denies chest pain or shortness of breath. No headaches or dizziness. No lightheadedness. No change in vision. No dysuria. No fevers or chills. Patient is having bowel movements. Physical exam: General: Awake and alert, lying in bed in no acute distress. HEENT: Normocephalic, atraumatic, Extraocular muscles intact, pupils equal and reactive, no scleral icterus. Oropharynx is pink and moist. No pharyngeal erythema or exudate appreciated. Neck is supple. Cardiovascular: Normal rhythm. Normal S1 and S2. No murmus, rubs, or gallops appreciated. Pulmonary: Normal respiratory effort. No rhonchi, rales, or wheezing appreci ated. Gastrointestinal: Soft. Nondistended. Mild generalized tenderness. Positive bowel sounds all 4 quadrants. No guarding. Musculoskeletal: Moves all extremities. No calf tenderness. Dressing left lower extremity clean, dry and intact. Central nervous system: AAO x3, CN2-12 grossly intact. Dermatologic: Skin warm and dry. Assessment and plan: Patient is a 48-year-old male with past medical history significant for type 1 diabetes on insulin pump, osteomyelitis of left foot, TIA, bilateral lower extremity DVT, and Rascon's palsy that presented to the emergency room for 1 week history of abdominal pain and 1 day history of nonbloody vomiting. 1. Left foot ulcer. Dressing in place. S/P bone biopsy of left fifth metatarsal. Biopsy results pending. ID following, recommendations appreciated. Continue Ancef. Wound cultures positive for staph aureus. No leukocytosis. Patient afebrile. Podiatry following, recommendations appreciated. Left foot MRI per radiologist showed fracture through the base of the 5th metatarsal with diffuse marrow edema, chronic collapse and fragmentation of the talus. Lower extremity BARRIE exam per radiologist showed relatively normal BARRIE and PVR exam at rest, po ssible right tibial occlusive disease. Pulses intact on right. Continue care as per podiatry. 2. Nausea, vomiting, and abdominal pain. Likely gastroparesis secondary to uncontrolled DM type 1. Improved. Patient advised to eat small meals. GI following, recommendations appreciated. Diet advanced. Continue Reglan ACHS per GI. Abdominal ultrasound radiologist showed no acute findings related to/acc ounting for her clinical presentation. Abdominal x-ray per radiologist showed no obstruction, no obvious evidence of fecal impaction. Per GI, patient has had multiple EGDs consistent with chronic gastritis, esophagitis. 3. DM type 1, uncontrolled. Patient uses insulin pump at home. HgbA1C 10.3. Con tinue insulin sliding scale. Endocrinology following, recommendations appreciated. Continue insulin per thread pulling machine attendant. Continue to monitor accuchecks. Per patient, his insulin was adjusted by his doctor in July. 4. Anemia. Appears to be chronic. H&H stable. No acute signs of bleeding. Continue to monitor CBC. Iron 18, TIBC 195, % saturation 9, ferritin 330. 5. History of DVT. Per patient, he completed treatment and is no longer on anticoagulation. 6. GI/DVT prophylaxis. Protonix/Lovenox 7. Patient is a full code. Case was discussed in detail with patient regarding current diagnosis and treatment plan. All questions answered.
[2018-08-16] MEDS: Insulin Lispro 1 UNITS/0.01 ML SC SCH ×2 (11:48→16:50)
[2018-08-16 13:04] LABS: TESTOSTERONE 441 ng/mL
[2018-08-16] MEDS ORDERED: Insulin Detemir 100 units/ml Vial (Levemir) SC SCH (22:00)
[2018-08-17] MEDS: ceFAZolin 1 gm in NS 1 GM/100 ML BAG IVPB SCH ×3 (06:11→22:33)
[2018-08-17] MEDS: Pantoprazole 40 mg EC Tab PO SCH ×2 (06:19→16:24)
[2018-08-17 07:02] LABS: BASO # 0.01 K/mm3 (0.0-2.0); BASO % 0.2 % (0.0-3.0); EOS # 0.2 (0.0-0.7); EOS % 3.3 % (1.5-5.0); GRAN % 66.4 % (50.0-68.0); LYMPH # 1.2 (1.2-3.4); LYMPH % 20.6 % (22.0-35.0); MEAN CELL VOLUME 88.4 fl (80.0-105.0); MEAN CORPUSCULAR HEMOGLOBIN 30.4 pg (25.0-35.0); MEAN CORPUSCULAR HGB CONC 34.4 g/dl (31.0-37.0); MEAN PLATELET VOLUME 9.7 fl (7.0-11.0); MONO # 0.6 (0.1-0.6); MONO % 9.5 % (1.0-6.0); RBC 3.29 10^6/uL (3.5-6.1); RED CELL DISTRIBUTION WIDTH 12.4 % (11.5-14.5)
[2018-08-17 07:40] LABS: ALB/GLOB RATIO 0.9 (1.1-1.8); ALBUMIN 3.5 g/dL (3.0-4.8); ALT/SGPT 15 U/L (7-56); AST/SGOT 28 U/L (17-59); BLOOD UREA NITROGEN 14 mg/dL (7-21); CALCIUM 8.9 mg/dL (8.4-10.5); GFR NON-AFRICAN AMERICAN > 60
[2018-08-17] MEDS: Insulin Lispro 1 UNITS/0.01 ML SC SCH ×3 (08:07→16:24)
[2018-08-17] MEDS: Insulin Lispro (humaLOG) LOW Coverage SC SCH ×3 (08:07→22:26)
[2018-08-17] MEDS: Enoxaparin 40 mg Syringe SC SCH (10:10)
--- NOTE | 2018-08-17 12:18 | CP.PCM.PN ---
<Alex Aguayo - Last Filed: 08/17/18 13:00> Subjective - Date & Time of Evaluation Date of Evaluation: 08/17/18 Time of Evaluation: 09:00 - Subjective Subjective: Pt seen and examined. Admits to some mild abdominal pain. Denies chest pain, SOB, nausea or vomiting. Objective - Vital Signs/Intake and Output Vital Signs (last 24 hours): Temp Pulse Resp BP Pulse Ox 98.1 F 80 20 106/73 97 08/17/18 06:00 08/17/18 06:00 08/17/18 06:00 08/17/18 06:00 08/17/18 06:00 Intake and Output: 08/17/18 08/17/18 06:59 18:59 Intake Total 260 340 Output Total 1950 1950 Balance -1690 -1610 - Medications Medications: Current Medications Acetaminophen (Tylenol 325mg Tab) 650 mg PO Q4H PRN PRN Reason: Fever >100.4 F Last Admin: 08/15/18 16:00 Dose: 650 mg Acetaminophen (Tylenol 325mg Tab) 650 mg PO Q6H PRN PRN Reason: Pain, Mild (1-3) Dextrose (Dextrose 50% Inj) 0 ml IV STAT PRN; Protocol PRN Reason: Hypoglycemia Protocol Enoxaparin Sodium (Lovenox) 40 mg SC DAILY [facility]; Protocol Last Admin: 08/17/18 10:10 Dose: 40 mg Dextrose (Dextrose 5% In Water 1000 Ml) 1,000 mls @ 0 mls/hr IV .Q0M PRN; Protocol PRN Reason: Hypoglycemia Protocol Cefazolin Sodium (Ancef 1gm In Ns) 1 gm in 100 mls @ 100 mls/hr IVPB Q8 [facility]; Protocol Stop: 08/25/18 14:01 Last Admin: 08/17/18 06:11 Dose: 100 mls/hr Insulin Detemir (Levemir) 24 unit SC HS [facility] Last Admin: 08/16/18 23:01 Dose: 24 units Insulin Human Lispro (Humalog Low) 0 units SC ACHS [facility]; Protocol Last Admin: 08/17/18 12:07 Dose: Not Given Insulin Human Lispro (Humalog) 12 units SC AC [facility] Last Admin: 08/17/18 12:09 Dose: 12 units Ketorolac Tromethamine (Toradol) 30 mg IVP Q6H PRN PRN Reason: Pain, moderate (4-7) Last Admin: 08/15/18 07:48 Dose: 30 mg Ondansetron HCl (Zofran Inj) 4 mg IVP Q6H PRN PRN Reason: Nausea/Vomiting Last Admin: 08/12/18 10:04 Dose: 4 mg Oxycodone/Acetaminophen (Percocet 5/325 Mg Tab) 1 tab PO Q6H PRN PRN Reason: Pain, moderate (4-7) Stop: 08/17/18 18:07 Oxycodone/Acetaminophen (Percocet 5/325 Mg Tab) 2 tab PO Q6H PRN PRN Reason: Pain, severe (8-10) Stop: 08/17/18 18:07 Pantoprazole Sodium (Protonix Ec Tab) 40 mg PO 0600,1600 [facility] Last Admin: 08/17/18 06:19 Dose: 40 mg Polyethylene Glycol (Miralax) 17 gm PO DAILY PRN PRN Reason: Constipation - Labs Labs: 08/17/18 05:30 08/17/18 05:30 - Constitutional Appears: No Acute Distress - Head Exam Head Exam: ATRAUMATIC, NORMOCEPHALIC - Eye Exam Eye Exam: EOMI - ENT Exam ENT Exam: Mucous Membranes Moist - Respiratory Exam Respiratory Exam: Clear to Ausculation Bilateral, NORMAL BREATHING PATTERN. absent: Accessory Muscle Use - Cardiovascular Exam Cardiovascular Exam: RRR, +S1, +S2. absent: Diastolic murmur, Murmur - GI/Abdominal Exam GI & Abdominal Exam: Soft, Tenderness, Normal Bowel Sounds - Extremities Exam Additional comments: left LE bandaged and in boot - Neurological Exam Neurological Exam: Alert, Awake, Oriented x3 - Psychiatric Exam Psychiatric exam: Normal Affect, Normal Mood - Skin Skin Exam: Dry, Intact, Warm Assessment and Plan - Assessment and Plan (Free Text) Assessment: Pt is a 48yo male with past medical history of DM, TIA, rascon's palsy, DVT, L chronic foot wound, L charcot ankle who was admitted for abdominal pain. Plan: Clinical Osteomyolitis - bone biopsy 08/14/18, pending - MRI: fracture through the base of the 5th metatarsal with diffuse marrow edema. 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 Christensen rec multipodus boots to be worn at all times in bed DM - HA1C 10.3 - ISS low - levemir 10 HS - Endocrinology consulted, Dr Butler for insulin regiment - Dr. Hudson as outpatient Abdominal pain, improving - Reglan PO - Diabetic diet - GI consulted Hx of DVT - Lovenox 40 SC Anemia - Hgb 11 Dispo: likely discharge to [facility] on Saturday, will need 4-6 weeks of antibiotics for clinical osteomyelitis, midline in place Pt seen, examined, assessment and plan, discussed with Dr Estela Aguayo PGY1, Internal Medicine Resident <Nehemias Palmer - Last Filed: 08/17/18 14:01> Objective - Vital Signs/Intake and Output Vital Signs (last 24 hours): Temp Pulse Resp BP Pulse Ox 98.1 F 80 20 106/73 97 08/17/18 06:00 08/17/18 06:00 08/17/18 06:00 08/17/18 06:00 08/17/18 06:00 Intake and Output: 08/17/18 08/17/18 06:59 18:59 Intake Total 260 340 Output Total 1950 1950 Balance -1690 -1610 - Medications Medications: Current Medications Acetaminophen (Tylenol 325mg Tab) 650 mg PO Q4H PRN PRN Reason: Fever >100.4 F Last Admin: 08/15/18 16:00 Dose: 650 mg Acetaminophen (Tylenol 325mg Tab) 650 mg PO Q6H PRN PRN Reason: Pain, Mild (1-3) Dextrose (Dextrose 50% Inj) 0 ml IV STAT PRN; Protocol PRN Reason: Hypoglycemia Protocol Enoxaparin Sodium (Lovenox) 40 mg SC DAILY [facility]; Protocol Last Admin: 08/17/18 10:10 Dose: 40 mg Dextrose (Dextrose 5% In Water 1000 Ml) 1,000 mls @ 0 mls/hr IV .Q0M PRN; Protocol PRN Reason: Hypoglycemia Protocol Cefazolin Sodium (Ancef 1gm In Ns) 1 gm in 100 mls @ 100 mls/hr IVPB Q8 [facility]; Protocol Stop: 08/25/18 14:01 Last Admin: 08/17/18 13:17 Dose: 100 mls/hr Insulin Detemir (Levemir) 24 unit SC HS [facility] Last Admin: 08/16/18 23:01 Dose: 24 units Insulin Human Lispro (Humalog Low) 0 units SC ACHS [facility]; Protocol Last Admin: 08/17/18 12:07 Dose: Not Given Insulin Human Lispro (Humalog) 12 units SC AC [facility] Last Admin: 08/17/18 12:09 Dose: 12 units Ketorolac Tromethamine (Toradol) 30 mg IVP Q6H PRN PRN Reason: Pain, moderate (4-7) Last Admin: 08/15/18 07:48 Dose: 30 mg Ondansetron HCl (Zofran Inj) 4 mg IVP Q6H PRN PRN Reason: Nausea/Vomiting Last Admin: 08/12/18 10:04 Dose: 4 mg Oxycodone/Acetaminophen (Percocet 5/325 Mg Tab) 1 tab PO Q6H PRN PRN Reason: Pain, moderate (4-7) Stop: 08/17/18 18:07 Oxycodone/Acetaminophen (Percocet 5/325 Mg Tab) 2 tab PO Q6H PRN PRN Reason: Pain, severe (8-10) Stop: 08/17/18 18:07 Pantoprazole Sodium (Protonix Ec Tab) 40 mg PO 0600,1600 [facility] Last Admin: 08/17/18 06:19 Dose: 40 mg Polyethylene Glycol (Miralax) 17 gm PO DAILY PRN PRN Reason: Constipation - Labs Labs: 08/17/18 05:30 08/17/18 05:30 Attending/Attestation - Attestation I have personally seen and examined this patient.: Yes I have fully participated in the care of the patient.: Yes I have reviewed all pertinent clinical information, including history, physical exam and plan: Yes Notes (Text): 08/17/18 13:54 Attending note; Patient seen and examined with resident. Patient is alert and awake. Denies any fevers, chills. Complaining of mild nausea. No vomiting. Tolerating diet. Left lower extremity in dressing. Fingerstick is fluctuating. Patient is a 48-year-old male with past medical history significant for type 1 diabetes on insulin pump, osteomyelitis of left foot, TIA, bilateral lower extremity DVT, and Rascon's palsy that presented to the emergency room for 1 week history of abdominal pain and 1 day history of nonbloody vomiting. 1. Left foot ulcer. Dressing in place. S/P bone biopsy of left fifth metatarsal. Results pending. Wound culture is positive for MSSA. ID evaluation appreciated. Infectious disease to determine the duration of an tibiotics pending results bone biopsy results. Started on Ancef. No leukocytosis. Patient afebrile. Podiatry evaluation appreciated. Left foot MRI showed fracture through the base of the 5th metatarsal with diffuse marrow edema, chronic collapse and fragmentation of the talus. BARRIE showed relatively normal BARRIE and PVR exam at rest, possible right tibial occlusive disease. Pulses intact on right. Continue care as per podiatry. 2. Nausea, vomiting, and abdominal pain. Secondary to diabetic gastroparesis . Improving. Patient advised to eat small meals. Continue Reglan when necessary . 3. DM type 1, uncontrolled. Patient uses insulin pump at home. HgbA1C 10.3. Continue insulin sliding scale. continue levemir increased. Lispro AC added. 4. Anemia. Appears to be chronic. H&H stable. No acute signs of bleeding. 5. Status post PICC line placement. Physical therapy evaluation appreciated. Subacute rehabilitation recommended. Will discuss with porter sample case tomorrow for rehabilitation placement. Upon discharge the patient will follow-up with PMD DR. Lopez. 08/17/18 14:01
--- NOTE | 2018-08-17 18:35 | PN ---
DATE: 08/17/2018 ENDOCRINOLOGY FOLLOWUP NOTE LOCATION: Room 364. SUBJECTIVE: This is a 48-year-old male with recent uncontrolled type 1 insulin-dependent diabetes and presenting here with diffuse upper abdominal pain with underlying exacerbation of diabetic gastroparesis and is now being followed closely for metabolic management. He has also ongoing IV antibiotic management for left foot osteomyelitis and awaiting the bone biopsy of the fifth metatarsal in the left foot as noted. His glycemic levels were fluctuating, but overnight have improved remarkably with low normal glycemic values otherwise as noted, and the latest glucose values today have ranged from 76-295 mg/dL. His chemistry showed a BUN of 14, sodium 135, potassium 4, chloride 97, CO2 of 33, glucose 156 and creatinine 0.7. ASSESSMENT: This is a 48-year-old male with uncontrolled and decompensated type 1 insulin-dependent diabetes with recent hyperglycemic accelerations and now being followed closely for metabolic management. He also has diabetic microvascular complications of retinopathy and polyneuropathy with diabetic macrovascular complications of cerebrovascular disease and peripheral arterial disease and vasculopathy. PLAN OF MANAGEMENT: We will modify once again his basal and bolus insulin regimen to optimize metabolic control. We will lower the basal insulin to Levemir given as 20 units subcu at bedtime daily to start tonight. We will also lower the prandial insulin with Humalog to be given at slightly lower dose because of the of his oral intake down to 80 units t.i.d. before meals to start at dinnertime today as ordered. We will continue the low-dose correction scale using Humalog insulin to obviate hypoglycemia and detailed orders have been given. We will follow and advise accordingly. Chrystal Butler MD
[2018-08-17] MEDS ORDERED: Insulin Detemir 100 units/ml Vial (Levemir) SC SCH (22:00)
--- NOTE | 2018-08-18 00:33 | PN ---
DATE: 08/17/2018 SUBJECTIVE: The patient is seen earlier today, no acute distress, in room 364. PHYSICAL EXAMINATION: VITAL SIGNS: Temperature is 98, blood pressure is 100/60, respiratory rate of 20. HEENT: Unremarkable. NECK: Supple. LUNGS: Have decreased breath sounds. HEART: Normal, S1, S2. ABDOMEN: Soft. LABORATORY DATA: Examination reveals a white count of 6000, hemoglobin of 10. BUN of 14, creatinine of 0.7. Microbiology reveals the left foot with Staphylococcus aureus. MEDICATIONS: Review of orders reveals the patient is on cefazolin which requires renewal, which we will do so. ASSESSMENT AND PLAN: A 48-year-old male with diabetes mellitus, admitted with Staphylococcus aureus osteomyelitis, chronic left foot and currently on cefazolin, day #3. Bone biopsy pathology is pending. We will follow with you. Stephen Gonzáles MD
[2018-08-18] MEDS: ceFAZolin 1 gm in NS 1 GM/100 ML BAG IVPB SCH (06:18)
[2018-08-18] MEDS: Pantoprazole 40 mg EC Tab PO SCH ×2 (06:20→17:50)
[2018-08-18 07:13] LABS: BASO # 0.01 K/mm3 (0.0-2.0); BASO % 0.2 % (0.0-3.0); EOS # 0.3 (0.0-0.7); EOS % 4.9 % (1.5-5.0); GRAN # 3.22 (1.4-6.5); GRAN % 60.9 % (50.0-68.0); HEMOGLOBIN 10.6 g/dL (14.0-18.0); LYMPH # 1.3 (1.2-3.4); LYMPH % 24.2 % (22.0-35.0); MEAN CELL VOLUME 89.8 fl (80.0-105.0); MEAN CORPUSCULAR HGB CONC 33.4 g/dl (31.0-37.0); MEAN PLATELET VOLUME 9.6 fl (7.0-11.0); MONO # 0.5 (0.1-0.6); MONO % 9.8 % (1.0-6.0); RBC 3.53 10^6/uL (3.5-6.1); RED CELL DISTRIBUTION WIDTH 12.5 % (11.5-14.5); WHITE BLOOD COUNT 5.3 10^3/uL (4.5-11.0)
--- NOTE | 2018-08-18 07:25 | CP.PCM.PN ---
<Donna Deleon - Last Filed: 08/18/18 13:09> Subjective - Date & Time of Evaluation Date of Evaluation: 08/18/18 Time of Evaluation: 07:23 - Subjective Subjective: ID consult note PGY-[address] Clark Pt states that face rash came on Saturday. No SOB, wheezes, hypotension, ictch/pain/swelling of lips. (+) Face feel tight. Denies CP, SOB, F/C, N/V/D/C, dysuria Objective - Vital Signs/Intake and Output Vital Signs (last 24 hours): Temp Pulse Resp BP Pulse Ox 98.1 F 87 19 100/65 96 08/17/18 17:53 08/17/18 17:53 08/17/18 17:53 08/17/18 17:53 08/17/18 17:53 Intake and Output: 08/18/18 08/18/18 06:59 18:59 Intake Total 320 Output Total 1550 Balance -1230 - Medications Medications: Current Medications Acetaminophen (Tylenol 325mg Tab) 650 mg PO Q4H PRN PRN Reason: Fever >100.4 F Last Admin: 08/15/18 16:00 Dose: 650 mg Acetaminophen (Tylenol 325mg Tab) 650 mg PO Q6H PRN PRN Reason: Pain, Mild (1-3) Dextrose (Dextrose 50% Inj) 0 ml IV STAT PRN; Protocol PRN Reason: Hypoglycemia Protocol Enoxaparin Sodium (Lovenox) 40 mg SC DAILY [facility]; Protocol Last Admin: 08/17/18 10:10 Dose: 40 mg Dextrose (Dextrose 5% In Water 1000 Ml) 1,000 mls @ 0 mls/hr IV .Q0M PRN; Protocol PRN Reason: Hypoglycemia Protocol Cefazolin Sodium (Ancef 1gm In Ns) 1 gm in 100 mls @ 100 mls/hr IVPB Q8 [facility]; Protocol Stop: 08/25/18 14:01 Last Admin: 08/18/18 06:18 Dose: 100 mls/hr Insulin Detemir (Levemir) 20 unit SC HS [facility] Last Admin: 08/17/18 22:32 Dose: 20 units Insulin Human Lispro (Humalog Low) 0 units SC ACHS [facility]; Protocol Last Admin: 08/17/18 22:26 Dose: Not Given Insulin Human Lispro (Humalog) 8 units SC AC [facility] Last Admin: 08/17/18 16:24 Dose: 8 unit Ketorolac Tromethamine (Toradol) 30 mg IVP Q6H PRN PRN Reason: Pain, moderate (4-7) Last Admin: 08/15/18 07:48 Dose: 30 mg Ondansetron HCl (Zofran Inj) 4 mg IVP Q6H PRN PRN Reason: Nausea/Vomiting Last Admin: 08/12/18 10:04 Dose: 4 mg Pantoprazole Sodium (Protonix Ec Tab) 40 mg PO 0600,1600 [facility] Last Admin: 08/18/18 06:20 Dose: 40 mg Polyethylene Glycol (Miralax) 17 gm PO DAILY PRN PRN Reason: Constipation - Labs Labs: 08/18/18 06:00 08/17/18 05:30 - Constitutional Appears: No Acute Distress - Head Exam Head Exam: ATRAUMATIC, NORMAL INSPECTION, NORMOCEPHALIC Additional comments: maculopapular rash in face only, blanching. No stridor/swell - Eye Exam Eye Exam: EOMI, Normal appearance Pupil Exam: NORMAL ACCOMODATION, PERRL - ENT Exam ENT Exam: Normal Exam - Neck Exam Additional comments: supple - Respiratory Exam Respiratory Exam: Clear to Ausculation Bilateral, NORMAL BREATHING PATTERN. absent: Decreased Breath Sounds, Rhonchi, Wheezes, Stridor - Cardiovascular Exam Cardiovascular Exam: REGULAR RHYTHM, +S1, +S2. absent: Murmur - GI/Abdominal Exam GI & Abdominal Exam: Soft, Normal Bowel Sounds. absent: Guarding, Rigid, Diminished Bowel Sounds, Mass - Extremities Exam Extremities Exam: absent: Calf Tenderness Additional comments: dressing d/c/i - Back Exam Back Exam: absent: CVA tenderness (L), CVA tenderness (R) - Neurological Exam Neurological Exam: Alert, Awake, Oriented x3 - Skin Skin Exam: Dry, Warm Additional comments: rash in face only, not anywhere else. L picc intact. no erythema IV site R arm intact Assessment and Plan - Assessment and Plan (Free Text) Plan: A: New face rash, ? PCN reaction. Doubt folliculitis. MSSA Osteomyelitis from Chronic diabetic foot wound, L, from prior trauma and burn Hx osteomyelitis of the L foot (03/2018) klebsiella and staph aureus Hx enterococcus faecalis in blood (03/2016) DM1 on insulin pump complicated by gastropaeresis, retinopathy, peripheral neuropathy, PVD and charot's foot, avascular necrosis of talus L foot, osteomyelitis of the left foot, flores to bilateral heel Hx TIA, B/L LE DVT (not on anticoagulant) and enciso's palsy New midline via L arm P: d/c Ancef (s/p 3 days). Given 1 dose solumedrol and benadryl Start zyvox (day 1, 4th day of ABX) for a total of 4-6 weeks of antibiotics Continue wound care with podiatry Follow on bone biopsy result. Will get ESR and CRP tomorrow Weekly CBC, CMP, ESR, CRP. Discontinue PICC outpatient upon completion of the course of antibiotics Imaging/Lab: - deep tissue culture obtained in OR (08/14/18): MSSA - swab wound culture (08/13/18): MSSA - BARRIE: relavtively BARRIE and PVR at rest - ESR 80 - CRP 86 - MRI of foot: facture through base of 5th metatarsal with diffuse marrow edema s/r/d/w Dr Clark <Ran Clark S - Last Filed: 08/18/18 17:07> Objective - Vital Signs/Intake and Output Vital Signs (last 24 hours): Temp Pulse Resp BP Pulse Ox 98.1 F 90 18 104/71 100 08/18/18 16:56 08/18/18 16:56 08/18/18 16:56 08/18/18 16:56 08/18/18 16:56 Intake and Output: 08/18/18 08/18/18 06:59 18:59 Intake Total 320 320 Output Total 1550 1550 Balance -1230 -1230 - Medications Medications: Current Medications Acetaminophen (Tylenol 325mg Tab) 650 mg PO Q4H PRN PRN Reason: Fever >100.4 F Last Admin: 08/15/18 16:00 Dose: 650 mg Acetaminophen (Tylenol 325mg Tab) 650 mg PO Q6H PRN PRN Reason: Pain, Mild (1-3) Dextrose (Dextrose 50% Inj) 0 ml IV STAT PRN; Protocol PRN Reason: Hypoglycemia Protocol Enoxaparin Sodium (Lovenox) 40 mg SC DAILY [facility]; Protocol Last Admin: 08/18/18 09:42 Dose: 40 mg Dextrose (Dextrose 5% In Water 1000 Ml) 1,000 mls @ 0 mls/hr IV .Q0M PRN; Protocol PRN Reason: Hypoglycemia Protocol Linezolid (Zyvox 600mg/300ml D5w) 600 mg in 300 mls @ 200 mls/hr IVPB Q12 [facility]; Protocol Stop: 08/26/18 23:29 Last Admin: 08/18/18 11:27 Dose: 200 mls/hr Insulin Detemir (Levemir) 20 unit SC HS [facility] Last Admin: 08/17/18 22:32 Dose: 20 units Insulin Human Lispro (Humalog Low) 0 units SC ACHS [facility]; Protocol Last Admin: 08/18/18 13:03 Dose: Not Given Insulin Human Lispro (Humalog) 8 units SC AC [facility] Last Admin: 08/18/18 11:30 Dose: 8 unit Ondansetron HCl (Zofran Inj) 4 mg IVP Q6H PRN PRN Reason: Nausea/Vomiting Last Admin: 08/12/18 10:04 Dose: 4 mg Pantoprazole Sodium (Protonix Ec Tab) 40 mg PO 0600,1600 [facility] Last Admin: 08/18/18 06:20 Dose: 40 mg Polyethylene Glycol (Miralax) 17 gm PO DAILY PRN PRN Reason: Constipation - Labs Labs: 08/18/18 06:00 08/18/18 06:00 Assessment and Plan - Assessment and Plan (Free Text) Plan: Infectious diseases Attending Physician Attestation Patient seen and examined, discussed with medical officer psychiatry. I have reviewed the patient's history of present illness, past medical, social, personal and family histories, pertinent physical exam findings, course so far in this hospital admission, pertinent laboratory and imaging results. I agree with the above findings, assessment and plan. In addition, patient apparently developed rash on the face while on cefazolin - will switch to Linezolid and follow up bone biopsy results for this patient with diabetic foot infection with fracture, suspicious for osteomyelitis, growing MSSA from the bone biopsy. Discussed with Dr. Christensen. Will need 4 weeks of antibiotics with outpatient follow up with Dr. Christensen.
[2018-08-18 07:26] LABS: ALB/GLOB RATIO 0.9 (1.1-1.8); ALBUMIN 3.5 g/dL (3.0-4.8); ALT/SGPT 21 U/L (7-56); AST/SGOT 22 U/L (17-59); BLOOD UREA NITROGEN 15 mg/dL (7-21); CALCIUM 8.9 mg/dL (8.4-10.5); GFR NON-AFRICAN AMERICAN > 60
--- NOTE | 2018-08-18 08:51 | OP ---
PROCEDURE DATE: 08/14/2018 SURGEON: Dr. Jennifer Christensen DPM LOCKSTITCH SHOULDER JOINER: Dr. Deena Olivo, PGY-1 ANESTHESIOLOGIST: Andie Padilla MD ANESTHESIA: IV sedation with local block. PREOPERATIVE DIAGNOSIS: Elliptical ulcer at the base of fifth metatarsal with possible osteomyelitis. POSTOPERATIVE DIAGNOSIS: Elliptical ulcer at the base of fifth metatarsal with possible osteomyelitis. NAME OF PROCEDURE: Left foot fifth metatarsal base bone biopsy. INDICATIONS: The patient is a 48-year-old male with the above diagnosis. The patient has exhausted all conservative treatments at this time and now requires surgical intervention. The patient signed the consent after careful explanation of risks, benefits, complications, and alternatives for surgical procedure. No guarantees were given nor implied. NPO status was confirmed prior to taking the patient to the OR. PREPARATION: The patient was brought into the operating room table and placed in a supine position. Time-out was performed for identification of correct patient and procedure. The patient received a total of 8 mL of 2% lidocaine plain in a local block type fashion to the fifth metatarsal base. The left foot was then prepped and draped in a normal sterile manner, and the procedure began. No tourniquet was used during the procedure. DESCRIPTION OF PROCEDURE: Attention was directed to the plantar lateral aspect of the mid foot where an ulcer was noted measuring approximately 2.5 cm x 1.5 cm in deep to the bone. The ulcer had a fibrogranular base with macerated wound edge. This was irrigated with pulse lavage with gentamicin. Attention was then directed to the dorsal lateral aspect of left mid foot where a 1.5 cm incision was made using a sterile #15 blade with care being taken to avoid all neurovascular structures. The incision was then extended down to the lower, and hemostat was utilized for excess tissue. At this point, a trephine was used in the surgical incision to remove a piece of the fifth metatarsal bone for biopsy. This was then sent off for cultures and pathology. The wounds were then irrigated with pulse lavage and gentamicin. The skin at the surgical site was then reapproximated using 3-0 nylon. The foot was dressed with Adaptic, gauze, ABD pads, DSD, and Coban with mild compression. POSTOPERATIVE CONDITION: The patient tolerated the local anesthesia and procedure well and was escorted to the recovery room with neurovascular status intact to the left foot and vital signs stable. The patient is to remain nonweightbearing at this time to the left lower extremity. The patient will remain in-house and Podiatry will continue to follow. The patient will continue to receive IV antibiotics while inpatient at the hospital. DEENA OLIVO Jennifer Christensen DPM ARSALAN
[2018-08-18] MEDS: Insulin Lispro (humaLOG) LOW Coverage SC SCH ×3 (09:36→17:49)
[2018-08-18] MEDS: Enoxaparin 40 mg Syringe SC SCH (09:42)
[2018-08-18] MEDS: Insulin Lispro 1 UNITS/0.01 ML SC SCH ×3 (09:43→17:49)
[2018-08-18] MEDS ORDERED: MethylPREDNISolone 40 mg Vial IVP ONE (10:00)
[2018-08-18] MEDS ORDERED: Linezolid 600 mg in D5W 300 ml 600 MG/300 ML BAG IVPB SCH (10:00)
[2018-08-18] MEDS ORDERED: DiphenhydrAMINE 50 mg/ml Inj IVP ONE (10:00)
--- NOTE | 2018-08-18 11:31 | CP.PCM.PN ---
Subjective - Date & Time of Evaluation Date of Evaluation: 08/18/18 Time of Evaluation: 11:29 - Subjective Subjective: Podiatry Progress Note - Dr. Christensen/Pamela 48 yo male seen and evaluated at bedside this morning with Dr. Christensen, 3 days s/p left foot bone biopsy. Patient denies any acute overnight events. Says he slept well and the pain to his left foot has decreased. Denies fever, nausea, vomiting, chills. Objective - Vital Signs/Intake and Output Vital Signs (last 24 hours): Temp Pulse Resp BP Pulse Ox 98 F 83 20 103/73 97 08/18/18 08:27 08/18/18 08:27 08/18/18 08:27 08/18/18 08:27 08/18/18 08:27 Intake and Output: 08/18/18 08/18/18 06:59 18:59 Intake Total 320 Output Total 1550 Balance -1230 - Medications Medications: Current Medications Acetaminophen (Tylenol 325mg Tab) 650 mg PO Q4H PRN PRN Reason: Fever >100.4 F Last Admin: 08/15/18 16:00 Dose: 650 mg Acetaminophen (Tylenol 325mg Tab) 650 mg PO Q6H PRN PRN Reason: Pain, Mild (1-3) Dextrose (Dextrose 50% Inj) 0 ml IV STAT PRN; Protocol PRN Reason: Hypoglycemia Protocol Enoxaparin Sodium (Lovenox) 40 mg SC DAILY [facility]; Protocol Last Admin: 08/18/18 09:42 Dose: 40 mg Dextrose (Dextrose 5% In Water 1000 Ml) 1,000 mls @ 0 mls/hr IV .Q0M PRN; Protocol PRN Reason: Hypoglycemia Protocol Linezolid (Zyvox 600mg/300ml D5w) 600 mg in 300 mls @ 200 mls/hr IVPB Q12 [facility]; Protocol Stop: 08/26/18 23:29 Insulin Detemir (Levemir) 20 unit SC HS [facility] Last Admin: 08/17/18 22:32 Dose: 20 units Insulin Human Lispro (Humalog Low) 0 units SC ACHS [facility]; Protocol Last Admin: 08/18/18 09:36 Dose: Not Given Insulin Human Lispro (Humalog) 8 units SC AC [facility] Last Admin: 08/18/18 09:43 Dose: 8 unit Ketorolac Tromethamine (Toradol) 30 mg IVP Q6H PRN PRN Reason: Pain, moderate (4-7) Last Admin: 08/15/18 07:48 Dose: 30 mg Ondansetron HCl (Zofran Inj) 4 mg IVP Q6H PRN PRN Reason: Nausea/Vomiting Last Admin: 08/12/18 10:04 Dose: 4 mg Pantoprazole Sodium (Protonix Ec Tab) 40 mg PO 0600,1600 [facility] Last Admin: 08/18/18 06:20 Dose: 40 mg Polyethylene Glycol (Miralax) 17 gm PO DAILY PRN PRN Reason: Constipation - Labs Labs: 08/18/18 06:00 08/18/18 06:00 - Constitutional Appears: Well, Non-toxic, No Acute Distress - Head Exam Head Exam: ATRAUMATIC, NORMOCEPHALIC - Eye Exam Eye Exam: Normal appearance Pupil Exam: NORMAL ACCOMODATION - ENT Exam ENT Exam: Mucous Membranes Moist - Extremities Exam Additional comments: Lower extremity focused exam: Left lower extremity posterior splint clean dry and intact Right foot dressings in place, clean dry and intact No strikethrough present on bandages Assessment and Plan - Assessment and Plan (Free Text) Assessment: 48 y/o male with 1) left foot non-healing ulcer with possible osteomyelitis, 2 days s/p left foot fifth metatarsal bone biopsy and 2) left foot 5th metatarsal base fracture Plan: Patient seen and evaluated with Dr. Christensen Left foot posterior splint remains in place - to remain clean, dry and intact at all times Splint removed, patient to leave the dressing intact. Left foot MRI shows fracture of the fifth met base, bone marrow edema of the fifth metatarsal Multipodus boots to be worn at all times in bed to RLE Wound cultures: methicillin sensitive staph aureus Await OR pathology from bone biopsy performed on 08/14/18 Continue physical therapy; NWB to the left lower extremity Patient will follow up with Dr. Christensen in office upon discharge within 2 weeks Will continue to follow
--- NOTE | 2018-08-18 14:05 | PN ---
DATE: 08/18/2018 LOCATION: Room 364. SUBJECTIVE: This is a 48-year-old male with recent uncontrolled type 1 insulin-dependent diabetes, now being followed closely for metabolic management. He was previously using an insulin pump with the [place] model as noted. His glycemic levels are fluctuating, but much improved as noted overnight and have ranged from 129 to 139 mg/dL. His latest chemistries showed a BUN of 15, sodium 136, potassium 4.6, chloride 97, CO2 of 3 2, glucose 184 and creatinine 0.7. So, at this time, we will continue the same basal and bolus insulin regimen to allow for dose equilibration and hold off on the Humalog given as 8 units b.i.d. before meals as ordered. We will continue also the Levemir given as 20 units subcu at bedtime daily as given. We will titrate incrementally as indicated to optimize metabolic control. We will follow and advise accordingly. Chrystal Butler MD
--- NOTE | 2018-08-18 14:55 | CP.PCM.PCO ---
Physician Communication Note - Physician Communication Note Physician Communication Note: patient will need 4-6 weeks IV Zyvox treatment osteomyelitis per I.D.
[2018-08-18 16:56] VITALS: BP 104/71; PULSE 90; RESP 18; TEMP 98.1; O2SAT 100
--- NOTE | 2018-08-18 19:27 | CP.PCM.DIS ---
Provider - Provider Date of Admission: 08/13/18 13:53 Attending physician: Janeen Kemp DO Consults: 08/12/18 08:46 Consult [Physician Consult] Routine Comment: Consulting Provider: Mac Gonzalez V Consulting Physician: Mac Gonzalez V Reason for Consult: abdominal pain, vomiting, DM I 08/12/18 08:47 Consult [Physician Consult] Routine Comment: Consulting Provider: Jennifer Christensen Consulting Physician: Jennifer Christensen Reason for Consult: L Leg wound 08/13/18 13:57 Infectious Disease Consult Routine Comment: Consulting Provider: Stephen Gonzáles Consulting Physician: Stephen Gonzáles Reason for Consult: clinical osteomylitis left foot 08/15/18 12:08 Endocrinology Consult Routine Comment: Consulting Provider: Chrystal Butler Consulting Physician: Chrystal Butler Reason for Consult: type 1 DM; fluctuating sugars 08/18/18 12:48 Nursing Referral for Wound Care Routine Comment: Physician Instructions: Reason For Exam: right ankle Time Spent in preparation of Discharge (in minutes): 35 Diagnosis - Discharge Diagnosis (1) Osteomyelitis Status: Acute Priority: High (2) Diabetes Status: Acute Priority: High Hospital Course - Lab Results Lab Results: Micro Results 08/14/18 18:11 Foot - Left Gram Stain - Final 08/14/18 18:11 Foot - Left Wound Culture - Final Staphylococcus Aureus 08/13/18 14:00 Foot - Left Gram Stain - Final 08/13/18 14:00 Foot - Left Wound Culture - Final Staphylococcus Aureus Most Recent Lab Values WBC 5.3 10^3/uL (4.5-11.0) 08/18/18 06:00 RBC 3.53 10^6/uL (3.5-6.1) 08/18/18 06:00 Hgb 10.6 g/dL (14.0-18.0) L 08/18/18 06:00 Hct 31.7 % (42.0-52.0) L 08/18/18 06:00 MCV 89.8 fl (80.0-105.0) 08/18/18 06:00 MCH 30.0 pg (25.0-35.0) 08/18/18 06:00 MCHC 33.4 g/dl (31.0-37.0) 08/18/18 06:00 RDW 12.5 % (11.5-14.5) 08/18/18 06:00 Plt Count 289 10^3/uL (120.0-450.0) 08/18/18 06:00 MPV 9.6 fl (7.0-11.0) 08/18/18 06:00 Gran % 60.9 % (50.0-68.0) 08/18/18 06:00 Lymph % (Auto) 24.2 % (22.0-35.0) 08/18/18 06:00 [place] % (Auto) 9.8 % (1.0-6.0) H 08/18/18 06:00 Eos % (Auto) 4.9 % (1.5-5.0) 08/18/18 06:00 Baso % (Auto) 0.2 % (0.0-3.0) 08/18/18 06:00 Gran # 3.22 (1.4-6.5) 08/18/18 06:00 Lymph # (Auto) 1.3 (1.2-3.4) 08/18/18 06:00 [place] # (Auto) 0.5 (0.1-0.6) 08/18/18 06:00 Eos # (Auto) 0.3 (0.0-0.7) 08/18/18 06:00 Baso # (Auto) 0.01 K/mm3 (0.0-2.0) 08/18/18 06:00 ESR 80 mm/hr (0.00-15.0) H 08/13/18 15:00 pO2 40 mm/Hg (30-55) 08/11/18 20:15 VBG pH 7.44 (7.32-7.43) H 08/11/18 20:15 VBG pCO2 32.0 (40-60) L 08/11/18 20:15 VBG HCO3 21.7 mmol/l (21-28) 08/11/18 20:15 VBG Total CO2 22.7 mmol.L (22-28) 08/11/18 20:15 VBG O2 Sat (Calc) 80.2 % (40-65) H 08/11/18 20:15 VBG Base Excess -1.6 mmol/L (0.0-2.0) L 08/11/18 20:15 VBG Potassium 3.6 mmol/L (3.6-5.2) 08/11/18 20:15 Sodium 131.0 mmol/L (132-148) L 08/11/18 20:15 Chloride 98.0 mmol/L (98-107) 08/11/18 20:15 Glucose 281 mg/dl (75-110) H 08/11/18 20:15 Lactate 1.4 mmol/L (0.7-2.1) 08/11/18 20:15 FiO2 21.0 % 08/11/18 20:15 Sodium 136 mmol/L (132-148) 08/18/18 06:00 Potassium 4.6 mmol/L (3.6-5.0) 08/18/18 06:00 Chloride 97 mmol/L (98-107) L 08/18/18 06:00 Carbon Dioxide 32 mmol/L (21-33) 08/18/18 06:00 Anion Gap 12 (10-20) 08/18/18 06:00 BUN 15 mg/dL (7-21) 08/18/18 06:00 Creatinine 0.7 mg/dl (0.8-1.5) L 08/18/18 06:00 Est GFR ( Amer) > 60 08/18/18 06:00 Est GFR (Non-Af Amer) > 60 08/18/18 06:00 POC Glucose (mg/dL) 124 mg/dL (65-110) H 08/18/18 16:32 Random Glucose 184 mg/dL (70-110) H 08/18/18 06:00 Hemoglobin A1c 10.3 % (4.2-6.5) H 08/12/18 14:10 Calcium 8.9 mg/dL (8.4-10.5) 08/18/18 06:00 Phosphorus 3.2 mg/dL (2.5-4.5) 08/12/18 06:30 Magnesium 1.8 mg/dL (1.7-2.2) 08/16/18 06:30 Iron 18 ug/dL (45-180) L 08/12/18 10:26 TIBC 195 ug/dL (261-462) L 08/12/18 10:26 % Saturation 9 % (20-55) L 08/12/18 10:26 Ferritin 330.0 ng/mL 08/12/18 14:10 Total Bilirubin 0.2 mg/dL (0.2-1.3) 08/18/18 06:00 AST 22 U/L (17-59) 08/18/18 06:00 ALT 21 U/L (7-56) 08/18/18 06:00 Alkaline Phosphatase 72 U/L (38-126) 08/18/18 06:00 Troponin I < 0.01 ng/mL 08/11/18 15:47 C-Reactive Protein 85.90 mg/L (0.0-9.9) H 08/13/18 15:00 Total Protein 7.4 g/dL (5.8-8.3) 08/18/18 06:00 Albumin 3.5 g/dL (3.0-4.8) 08/18/18 06:00 Globulin 3.8 gm/dL 08/18/18 06:00 Albumin/Globulin Ratio 0.9 (1.1-1.8) L 08/18/18 06:00 Triglycerides 159 mg/dL (35-160) 08/16/18 06:30 Cholesterol 169 mg/dL (130-200) 08/16/18 06:30 LDL Cholesterol Direct 107 mg/dL (0-129) 08/16/18 06:30 HDL Cholesterol 23 mg/dL (29-60) L 08/16/18 06:30 Lipase 23 U/L (23-300) 08/11/18 15:47 Vitamin B12 559 pg/mL (239-931) 08/12/18 14:10 25-OH Vitamin D Total 29.2 NG/ML (30.0-100.0) L 08/16/18 05:00 Folate > 20.0 ng/mL 08/12/18 14:10 TSH 3rd Generation 0.93 mIU/mL (0.46-4.68) 08/16/18 07:00 Testosterone Level 441 ng/mL 08/16/18 06:30 Venous Blood Potassium 3.6 mmol/L (3.6-5.2) 08/11/18 20:15 Urine Color Light yellow (YELLOW) 08/11/18 18:53 Urine Appearance Clear (CLEAR) 08/11/18 18:53 Urine pH 6.0 (4.7-8.0) 08/11/18 18:53 Ur Specific [place] 1.025 (1.005-1.035) 08/11/18 18:53 Urine Protein Trace mg/dL (<30 mg/dL) H 08/11/18 18:53 Urine Glucose (UA) >=1000 mg/dL (NEGATIVE) 08/11/18 18:53 Urine Ketones >=80 mg/dL (NEGATIVE) 08/11/18 18:53 Urine Blood Trace-lysed (NEGATIVE) H 08/11/18 18:53 Urine Nitrate Negative (NEGATIVE) 08/11/18 18:53 Urine Bilirubin Negative (NEGATIVE) 08/11/18 18:53 Urine Urobilinogen 0.2 E.U./dL (<1 E.U./dL) 08/11/18 18:53 Ur Leukocyte Esterase Negative Edil/uL (NEGATIVE) 08/11/18 18:53 Urine RBC 0 - 2 /hpf (0-2) 08/11/18 18:53 Urine WBC Negative /hpf (0-6) 08/11/18 18:53 Ur Epithelial Cells None /hpf (0-5) 08/11/18 18:53 - Hospital Course Hospital Course: Upon Admission This is a 48 year old male with PMH of DM on insulin pump, osteomyelitis of the left foot, TIA, B/L LE DVT and enciso's palsy presenting to the ED for one week history of abdominal pain and one day history of non bloody vomiting. Patient states he abdominal pain started on juan pablo, located in the epigastric region radiates B/L in the abdomen, sharp, intermittent and denies alleviating/exacerbating factors. He admitted to several episodes of non bloody vomiting. He denies every having similar symptoms in past. During Hospitalization Abdominal xray showed no evidence of bowel obstruction or fecal impaction and Abdominal US showed no acute findings. GI consulted during this hospital stay. Podiatry was consulted, Dr Christensen. A bone biopsy was preformed in the OR on 08/14/18. MRI showed a fracture through the base of the 5th metatarsal with diffuse marrow edema and chronic collapse and fragmentation of the talus. A BARRIE was obtained and showed a normal BARRIE and PVR, possible right tibial occlusive disease. Podiatry, Dr. Christensen recommended multipodus boots to be worn at all times in bed. Endocrinology was consulted, Dr Butler for insulin regiment. Discharge Pt advised to please follow up with primary care doctor, Dr. Lopez, within 3-5 days of discharge from subacute rehab. Please follow up with your charge hand, Dr. Hudson within 1 week of discharge. Please let Dr Hudson know your HA1C was 10.3 - he may add additional diabetes medications as your Diabetes is not controlled. Pt advised to please follow up with quill reamer on [address], within 1 week of discharge. Please let them know you were here for Diabetic Gastroparesis. If you have trouble getting in touch with your quill reamer please go see Dr Gonzalez who is the quill reamer who saw you while you were in the hospital. Advised to please continue to follow up with Dr. Christensen (Podiatry) as outpatient. Recommend screening colonoscopy for anemia as your blood level was low. Pt will need 4 weeks of IV antibiotics (Zyvox) which will be given through the midline. Pt will need weekly CBC, CMP, ESR, CRP while on Zyvox for the next 4 weeks. While in the subacute pt will be on insulin. When pt goes home, pt can restart using the insulin pump. - Date & Time of H&P Date of H&P: 08/18/18 Time of H&P: 08:00 Discharge Exam - Head Exam Head Exam: ATRAUMATIC, NORMAL INSPECTION, NORMOCEPHALIC - Eye Exam Eye Exam: EOMI - ENT Exam ENT Exam: Mucous Membranes Moist Additional comments: rash on pt nose and cheeks - Neck Exam Neck exam: Full Rom - Respiratory Exam Respiratory Exam: NORMAL BREATHING PATTERN. absent: Accessory Muscle Use, Wheezes, Respiratory Distress - Cardiovascular Exam Cardiovascular Exam: RRR, +S1, +S2. absent: Diastolic murmur, Systolic Murmur - GI/Abdominal Exam GI & Abdominal Exam: Normal Bowel Sounds, Soft, Tenderness - Extremities Exam Extremities exam: full ROM, pedal pulses present - Neurological Exam Neurological exam: Oriented x3 - Psychiatric Exam Psychiatric exam: Normal Affect, Normal Mood - Skin Skin Exam: Dry, Intact, Normal Color, Warm Discharge Plan - Discharge Medications Prescriptions: Linezolid 600 mg in NS 300 ml [Zyvox 600mg/300ml NS] 600 mg IVPB Q12 28 Days bag - Follow Up Plan Condition: STABLE Disposition: HOME/ ROUTINE Instructions: Gastroparesis (Delayed Gastric Emptying) (DC) Additional Instructions: Please follow up with your primary care doctor, Dr. Lopez, within 3-5 days of discharge from subacute rehab. Please follow up with your charge hand, Dr. Hudson within 1 week of discharge. Please let Dr Hudson know your HgbA1c was 10.3 - he may add additional diabetes medications as your Diabetes is not controlled. Please follow up with quill reamer on [address], within 1 week of discharge. Please let them know you were here for Diabetic Gastroparesis. If you have trouble getting in touch with your quill reamer please go see Dr Gonzalez who is the quill reamer who saw you while you were in the hospital. Please continue to follow up with Dr. Christensen (Podiatry) as outpatient. Recommend screening colonoscopy for anemia as your blood level was low. Recommend SMALL MEALS that are SOFT in consistency. PLEASE CHEW FOOD THOROUGHLY. This is the best treatment to prevent future nausea and vomiting. You will need 4 weeks of IV antibiotics (Zyvox) which will be given through the midline. You will need weekly CBC, CMP, ESR, CRP while on Zyvox for the next 4 weeks. You have been given a script for this and these labs will be sent to Dr. Christensen. While in the subacute you will be on insulin. When you go home, you can restart using the insulin pump. If your symptoms return, please go to the nearest emergency department. Referrals: Jennifer Christensen DPM [Staff Provider] - Lorenzo Lopez MD [Staff Provider] - Mac Gonzalez MD [Medical Doctor] -
== END 2018-08-18 22:26 | DRG 988 ==
LOC: ED 14:56 → ERH 18:35 → 3RNO 19:50 → OBSVTOIN 08-13 13:53 → 3RNO 08-13 16:02
PROVIDERS: ADMIT Internal Medicine; ATTEND Hospitalist
PROC: 05HY33Z Insertion of Infusion Device into Upper Vein, Percutaneous Approach (ICD-10-PCS; 2018-08-14)
PROC: 0QBP0ZX Excision of Left Metatarsal, Open Approach, Diagnostic (ICD-10-PCS; principal; 2018-08-14 17:00)
DX: E10.43 Type 1 diabetes mellitus with diabetic autonomic (poly)neuropathy (principal); E87.1 Hypo-osmolality and hyponatremia; L97.321 Non-pressure chronic ulcer of left ankle limited to breakdown of skin; M87.9 Osteonecrosis, unspecified; M86.172 Other acute osteomyelitis, left ankle and foot; L97.529 Non-pressure chronic ulcer of other part of left foot with unspecified severity; E10.65 Type 1 diabetes mellitus with hyperglycemia; E10.610 Type 1 diabetes mellitus with diabetic neuropathic arthropathy; K31.84 Gastroparesis; E86.0 Dehydration; E10.621 Type 1 diabetes mellitus with foot ulcer; E10.319 Type 1 diabetes mellitus with unspecified diabetic retinopathy without macular edema; E10.51 Type 1 diabetes mellitus with diabetic peripheral angiopathy without gangrene; G51.0 Bell's palsy; D63.8 Anemia in other chronic diseases classified elsewhere; E10.69 Type 1 diabetes mellitus with other specified complication; Z79.4 Long term (current) use of insulin; Z96.41 Presence of insulin pump (external) (internal); Z86.73 Personal history of transient ischemic attack (TIA), and cerebral infarction without residual deficits; Z86.718 Personal history of other venous thrombosis and embolism; D64.9 Anemia, unspecified; E10.42 Type 1 diabetes mellitus with diabetic polyneuropathy; Z83.3 Family history of diabetes mellitus; Z82.49 Family history of ischemic heart disease and other diseases of the circulatory system; I67.9 Cerebrovascular disease, unspecified; L08.9 Local infection of the skin and subcutaneous tissue, unspecified; M14.672 Charcot's joint, left ankle and foot; S92.353A Displaced fracture of fifth metatarsal bone, unspecified foot, initial encounter for closed fracture; T18.2XXA Foreign body in stomach, initial encounter

== ENCOUNTER 2018-11-18 | Emergency (ER) | payer MEDICARE, OTHER ==
[2018-11-18 00:01] VITALS: BMI 21.2
[2018-11-18] MEDS ORDERED: Sodium Chloride 0.9% 1,000 ML IV STA ×2 (01:27→03:05)
[2018-11-18] MEDS ORDERED: Famotidine 20mg/50ml 20 MG/50 ML BAG IVPB STA (01:27)
--- NOTE | 2018-11-18 01:42 | ED PDOC ---
Arrival/HPI - General Chief Complaint: GI Problem Time Seen by Provider: 11/18/18 00:38 Historian: Patient - History of Present Illness Narrative History of Present Illness (Text): 11/18/18 01:29 48 year old male, whose past medical history includes IDDM1 and osteomyelitis of the left foot, presents to the emergency department with vomiting, today. Patient informs he has had multiple episodes of vomiting today. Patient informs of some associated abdominal pain and dizziness. Patient denies any headache, chest pain, shortness of breath, cough, diaphoresis, diarrhea, back pain, neck pain, or any other complaint. Time/Duration: Prior to Arrival, 24 hours Symptom Onset: Gradual Symptom Course: Unchanged Activities at Onset: Light Context: Home Past Medical History - Provider Review Nursing Documentation Reviewed: Yes - Infectious Disease Hx of Infectious Diseases: None - Tetanus Immunization Tetanus Immunization: Unknown - Past Medical History Past Medical History: Non-Contributing - Cardiac Hx Pacemaker: No - Pulmonary Hx Respiratory Disorders: No - Neurological Hx Neurological Disorder: Yes Hx Dizziness: Yes Hx Transient Ischemic Attacks (TIA): Yes - HEENT Hx HEENT Disorder: Yes Other/Comment: Left eye blurry vision - Renal Hx Renal Disorder: No - Endocrine/Metabolic Hx Diabetes Mellitus Type 1: Yes - Hematological/Oncological Hx Blood Transfusions: (UNK) Hx Blood Transfusion Reaction: (UNK) - Integumentary Hx Dermatological Disorder: No - Musculoskeletal/Rheumatological Hx Musculoskeletal Disorders: Yes Hx Falls: No (last fall 3 years ago) Hx Unsteady Gait: Yes - Gastrointestinal Hx Gastrointestinal Disorders: No - Genitourinary/Gynecological Hx Genitourinary Disorders: No - Psychiatric Hx Psychophysiologic Disorder: No Hx Substance Use: No - Past Surgical History Past Surgical History: Non-Contributing - Surgical History Hx Mastectomy: No - Anesthesia Hx Anesthesia Reactions: No (UNK) Hx Malignant Hyperthermia: No (UNK) - Suicidal Assessment Feels Threatened In Home Enviroment: No Family/Social History - Physician Review Nursing Documentation Reviewed: Yes Family/Social History: No Known Family HX Smoking Status: Never Smoked Hx Alcohol Use: Yes (OCCASIONALLY) Hx Substance Use: No Hx Substance Use Treatment: No Allergies/Home Meds Allergies/Adverse Reactions: Allergies cefazolin [From Ancef] Allergy (Verified 08/18/18 10:01) RASH Review of Systems - Physician Review All systems were reviewed & negative as marked: Yes - Review of Systems Constitutional: absent: Fevers, Night Sweats Respiratory: absent: SOB, Cough Cardiovascular: absent: Chest Pain Gastrointestinal: Abdominal Pain, Nausea, Vomiting. absent: Diarrhea Musculoskeletal: absent: Back Pain, Neck Pain Neurological: absent: Headache Endocrine: absent: Diaphoresis Physical Exam - Physical Exam Narrative Physical Exam (Text): 11/18/18 01:43 Gen: VS reviewed, alert, well developed, well nourished, nontoxic, mild distress. ENT: normal pharynx, dry mucous membranes. Eye: EOMI, PERRL. Neck: no JVD, supple, no adenopathy. CV: regular rate, regular rhythm, no rubs, no murmur, no gallops, S1, S2, pulses equal and strong. Pulm: no distress, clear to auscultation, no wheeze, no rhonchi, breath sounds equal, no rales. Abd: soft, nontender, no guarding, no rebound, no rigidity, normal bowel sounds. Ext: no edema. Skin: good color, no rash, no cyanosis. Psych: responds appropriately to questions, normal affect. Neuro: oriented x 3, CN2-12 intact grossly, motor intact, sensation intact. Medical Decision Making ED Course and Treatment: 11/18/18 01:45 Impression: 48 year old male presents with vomiting and abdominal pain. Plan: -- EKG -- CMP, Lipase, Trop -- CBC -- Zofran, Pepcid -- Reassess and disposition Prior Visits: Notes and results from previous visits were reviewed. Progress Notes: 11/18/18 04:46 patient seen for acute vomiting and abdominal pain, benign physical exam, labs ok, patients he feels better after ivf and antiemetics. patient understands and agrees with plan and will follow up with his pcp. - EKG Interpretation EKG Interpretation (Text): 11/18/18 04:49 ekg my read: nsr at 98 bpm, nml qrs, nml axis, no acute sttw abn Interpreted by ED Physician: Yes - Medication Orders Current Medication Orders: Famotidine (Pepcid 20mg/50ml Premix) 20 mg in 50 mls @ 100 mls/hr IVPB STAT STA Stop: 11/18/18 01:56 Sodium Chloride (Sodium Chloride 0.9%) 1,000 mls @ 999 mls/hr IV .Q1H1M STA Stop: 11/18/18 02:27 Ondansetron HCl (Zofran Inj) 4 mg IVP STAT STA Stop: 11/18/18 01:28 - Scribe Statement The provider has reviewed the documentation as recorded by the Scribe Hamilton Wilder Provider Scribe Attestation: All medical record entries made by the Scribe were at my direction and personally dictated by me. I have reviewed the chart and agree that the record accurately reflects my personal performance of the history, physical exam, medical decision making, and the department course for this patient. I have also personally directed, reviewed, and agree with the discharge instructions and disposition. Disposition/Present on Arrival - Present on Arrival Any Indicators Present on Arrival: No History of DVT/PE: No History of Uncontrolled Diabetes: Yes Urinary Catheter: No History of Decub. Ulcer: No History Surgical Site Infection Following: None - Disposition Have Diagnosis and Disposition been Completed?: Yes Diagnosis: Vomiting Disposition: HOME/ ROUTINE Disposition Time: 04:48 Patient Plan: Discharge Patient Problems: Current Active Problems Problem Status Onset Vomiting Acute Condition: STABLE Discharge Instructions (ExitCare): Nausea and Vomiting, Adult (DC) Additional Instructions: return for any new or worsening symptoms. follow up with your regular doctor for better control of your diabetes. Forms: Sisasa (Norwegian)
[2018-11-18 02:18] LABS: BASO # 0.01 K/mm3 (0.0-2.0); BASO % 0.1 % (0.0-3.0); EOS # 0.1 (0.0-0.7); EOS % 0.7 % (1.5-5.0); LYMPH # 1.1 (1.2-3.4); LYMPH % 14.9 % (22.0-35.0); MEAN CORPUSCULAR HEMOGLOBIN 31.4 pg (25.0-35.0); MEAN CORPUSCULAR HGB CONC 35.3 g/dl (31.0-37.0); MEAN PLATELET VOLUME 10.9 fl (7.0-11.0); MONO # 0.4 (0.1-0.6); MONO % 5.6 % (1.0-6.0); RBC 4.01 10^6/uL (3.5-6.1); WHITE BLOOD COUNT 7.5 10^3/uL (4.5-11.0)
[2018-11-18 02:20] LABS: HEMOGLOBIN 12.6 g/dL (14.0-18.0)
[2018-11-18 02:28] LABS: TROPONIN I < 0.01 ng/mL
[2018-11-18 02:36] LABS: ALB/GLOB RATIO 1.3 (1.1-1.8); ALBUMIN 4.6 g/dL (3.0-4.8); ALT/SGPT 19 U/L (7-56); AST/SGOT 26 U/L (17-59); BLOOD UREA NITROGEN 40 mg/dL (7-21); CALCIUM 9.4 mg/dL (8.4-10.5); GFR NON-AFRICAN AMERICAN > 60; LIPASE 31 U/L (23-300)
[2018-11-18 03:23] VITALS: TEMP 97.6
[2018-11-18 04:55] VITALS: BP 113/80; PULSE 99; RESP 16; O2SAT 98
--- NOTE | 2018-11-18 10:39 | CARD ---
APPROVED REPORT Date of service: 11/18/2018 EKG Measurement Heart [id number] <Conclusion> Normal sinus rhythm Normal ECG
== END 2018-11-18 04:55 | disposition home or self-care (01) ==
LOC: ED
DX: R11.10 Vomiting, unspecified (principal); E10.9 Type 1 diabetes mellitus without complications; Z79.4 Long term (current) use of insulin; Z86.73 Personal history of transient ischemic attack (TIA), and cerebral infarction without residual deficits
CPT/HCPCS: 80053; 82948; 83690; 84484; 85025; 93005; 96374; 99283; J2405; J7030

== ENCOUNTER 2018-12-04 10:47 | Outpatient (CLI) | payer MEDICARE, OTHER | END 2018-12-04 10:48 | disposition home or self-care (01) | LOC: RAD 10:47 ==